=== PATIENT | male | born 1935 | race Caucasian/White ===

== ENCOUNTER 2017-02-11 15:52 | Inpatient (IN) | payer MEDICARE, OTHER ==
[2017-02-11] MEDS ORDERED: methylPREDNISolone Sodium Succinate 125 MG/2 ML SDV IVPUSH ONE (17:02)
[2017-02-11] MEDS ORDERED: Sennosides 8.6 MG Tab PO PRN (17:04)
[2017-02-11] MEDS ORDERED: Calcium Carbonate 750 MG Tab.Chew PO PRN (17:04)
[2017-02-11] MEDS ORDERED: Acetaminophen 325 MG Tab PO PRN (17:04)
[2017-02-11] MEDS ORDERED: Ondansetron 4 MG Tab.DIS PO PRN (17:04)
[2017-02-11] MEDS ORDERED: Magnesium Hydroxide 400 MG/5 ML Susp 30 ML Cup PO PRN ×2 (17:04→19:47)
--- NOTE | 2017-02-11 17:12 | PCM.HP ---
H&P History of Present Illness - General Date of Service: 02/11/17 Admit Problem/Dx: Fever chills respiratory distress. Had been seen on clinic [address] Metzger after he had returned from an [facility] cruise. Started feeling ill on the last day of the cruise which I believe was the and presented to the clinic on the for evaluation after returning home. who accompanied him on the entire trip has not been ill. They were together the entire time traveling as well as eating in the same locations. No noted breaks have been Noseworthy of any noral virus or acquired pneumonia Was prescribed azithromycin Z-Varun which he is taking the starter dose 500 mg and 3 days of the 250 mg in conjunction with his other medications. Source of Information: Patient, Family History Limitations: Reports: No Limitations - History of Present Illness Onset of Symptoms: Reports: Today, Sudden (Had been doing well since the until noon or shortly after today with sudden demise in chills.) Duration of Symptoms: Reports: Hour(s): Location: Reports: Chest (Denies chest pain but has had productive sputum yellowish-green in color.) Quality: Reports: Burning Improves with: Reports: None Worsens with: Reports: Breathing Associated Symptoms: Reports: Cough, cough w sputum, Fever/Chills - Related Data Allergies/Adverse Reactions: Allergies Allergy/AdvReac Type Severity Reaction Status Date / Time No Known Allergies Allergy Verified 12/06/15 14:56 Home Medications: Home Meds Aspirin [Brad Chewable Aspirin] 81 mg PO Q48H 11/27/13 [History] Omeprazole 20 mg PO DAILY 11/27/13 [History] Simvastatin [Zocor] 40 mg PO BEDTIME 11/27/13 [History] Trandolapril 1 mg PO DAILY 11/27/13 [History] Ursodiol 500 mg PO BID 11/27/13 [History] Vitamin E (dl, acetate) [Vitamin E] 400 unit PO BEDTIME 11/27/13 [History] Albuterol [Proventil Neb Soln] 2.5 mg NEB Q6HRRT 11/26/15 [History] Albuterol/Ipratropium [DuoNeb 3.0-0.5 MG/3 ML] 3 ml NEB Q6HRRT 11/26/15 [History ] Atenolol 12.5 mg PO QPM 11/26/15 [History] Folic Acid 1 mg PO BEDTIME 11/26/15 [History] Magnesium Hydroxide [Milk of Magnesia] 30 ml PO DAILY PRN 11/26/15 [History] Methotrexate 20 mg PO FR@0800 11/26/15 [History] Past Medical History HEENT History: Reports: Sinusitis Cardiovascular History: Reports: Bypass, CAD, High Cholesterol, Hypertension, PTCA Other Cardiovascular History: 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 Respiratory History: Reports: Intubation, Previous, Pneumonia, Recurrent, Pulmonary Fibrosis Gastrointestinal History: Reports: GERD Genitourinary History: Reports: BPH Musculoskeletal History: Reports: None, Osteoarthritis Neurological History: Reports: None Psychiatric History: Reports: None Endocrine/Metabolic History: Reports: None Hematologic History: Reports: Other (See Below) Immunologic History: Reports: None Oncologic (Cancer) History: Reports: Basal Cell Carcinoma Dermatologic History: Reports: None - Infectious Disease History Infectious Disease History: Reports: None - Past Surgical History Cardiovascular Surgical History: Reports: Coronary Artery Bypass Male Surgical History: Reports: TURP-Transurethral Resection of Prostate - Past Imaging History Past Imaging History: Reports: Angiography, Ultrasound, Xray Social & Family History - Family History Family Medical History: Noncontributory - Tobacco Use Smoking Status *Q: Former Smoker Years of Tobacco use: 15 Used Tobacco, but Quit: Yes Month Tobacco Last Used: July Hand Smoke Exposure: No - Alcohol Use Days Per Week of Alcohol Use: 0 - Recreational Drug Use Recreational Drug Use: No Drug Use in Last 12 Months: No Recreational Drug Last Use: 6 cups of coffee per day, Mountain Dew 3-4 times per week - Living Situation & Occupation Living situation: Reports: , with Family Occupation: Retired H&P Review of Systems - Review of Systems: Review Of Systems: See Below General: Reports: Fever, Chills, Malaise, Weakness HEENT: Reports: No Symptoms Pulmonary: Reports: Shortness of Breath, Cough, Sputum Cardiovascular: Reports: No Symptoms Gastrointestinal: Reports: Nausea Genitourinary: Reports: No Symptoms Musculoskeletal: Reports: Other (Generalized body aches) Skin: Reports: No Symptoms Psychiatric: Reports: No Symptoms Neurological: Reports: No Symptoms Hematologic/Lymphatic: Reports: No Symptoms Immunologic: Reports: No Symptoms Exam - Exam Exam: See Below - Vital Signs Weight: 83.007 kg - Exam General: Alert, Oriented HEENT: Conjunctiva Clear, EOMI, Nares Patent, Normal Nasal Septum, Posterior Pharynx Clear, Pupils Equal, Pupils Reactive Neck: Supple, Trachea Midline Lungs: Decreased Breath Sounds (Basilar), Rhonchi (Mild right side) Cardiovascular: Regular Rate, Regular Rhythm GI/Abdominal Exam: Normal Bowel Sounds, Soft (Male) Exam: Deferred Extremities: Normal Inspection, Pedal Edema (Trace nonpitting) Skin: Warm, Dry, Intact Neurological: Cranial Nerves Intact Neuro Extensive - Mental Status: Alert, Oriented x3, Normal Mood/Affect Psychiatric: Alert, Normal Affect, Normal Mood *Q Meaningful Use (ADM) - VTE *Q VTE Criteria *Q: - Stroke *Q Stroke Criteria *Q: - AMI *Q AMI Criteria *Q: - Problem List (1) Pneumonia SNOMED Code(s): 872705231 ICD Code: J18.9 - PNEUMONIA, UNSPECIFIED ORGANISM Status: Acute Priority : High Current Visit: Yes Qualifiers: Laterality: right Lung location: middle lobe of lung (2) Nausea SNOMED Code(s): 654233371 ICD Code: R11.0 - NAUSEA Status: Acute Priority: High Current Visit: Yes (3) Chills SNOMED Code(s): 69660793 ICD Code: R68.83 - CHILLS (WITHOUT FEVER) Status: Acute Priority: High Current Visit: Yes (4) Arthritis SNOMED Code(s): 6797167, 851402466 ICD Code: M19.90 - UNSPECIFIED OSTEOARTHRITIS, UNSPECIFIED SITE Status: Acute Priority: High Current Visit: Yes Problem List Initiated/Reviewed/Updated: Yes Orders Last 24hrs: Active Orders 24 hr Category Date Time Status Chest 2V [CR] Routine Exams 02/11/17 16:30 Taken CBC WITH AUTO DIFF [HEME] Routine Lab 02/11/17 16:22 Received Assessment/Plan Comment:: Contact Dr. Wells for admission. Cultures and laboratory work pending at this time secondary of computer downtime in clinic no clinic note is available. Initiation of antibiotic regimen with ceftriaxone in conjunction with azithromycin to conclude full treatment. Respiratory therapy treatments per nebulizer in conjunction with single dose steroid at this time. Cultures will be reviewed
[2017-02-11 17:19] LABS: CHLORIDE,CL 99 mmol/L (98-107); SODIUM,NA 136 mmol/L (136-145)
[2017-02-11] MEDS: cefTRIAXone 2 GM in Sodium Chloride 0.9% 100 ML IV SCH (17:58)
[2017-02-11] MEDS: Sodium Chloride 0.9% 10 ML Syringe FLUSH PRN (18:57)
[2017-02-11] MEDS: Azithromycin 500 MG in Sodium Chloride 0.9% 250 ML IV SCH (18:57)
[2017-02-11] MEDS ORDERED: Albuterol 0.083% 2.5 MG/3 ML Neb Soln NEB PRN (19:47)
[2017-02-11] MEDS: Simvastatin 20 MG Tab PO SCH (20:15)
[2017-02-11] MEDS: Vitamin E (dl-alpha-tocopherol acetate) 400 Unit Cap PO SCH (20:15)
[2017-02-11] MEDS: Aspirin 81 MG Tab.Chew PO SCH (20:16)
[2017-02-11] MEDS: Albuterol/Ipratropium 3.0-0.5 MG/3 ML Neb Soln NEB SCH (20:16)
[2017-02-11] MEDS: Folic Acid 1 MG Tab PO SCH (20:16)
[2017-02-12] MEDS: Albuterol/Ipratropium 3.0-0.5 MG/3 ML Neb Soln NEB SCH ×4 (04:06→19:34)
[2017-02-12] MEDS ORDERED: TRANDOLAPRIL 2 MG PO SCH (08:00)
[2017-02-12] MEDS: Omeprazole 20 MG Cap.CR PO SCH (08:23)
--- NOTE | 2017-02-12 12:52 | PCM.PN ---
- General Info Date of Service: 02/12/17 Admission Dx/Problem (Free Text): Fever chills respiratory distress. Had been seen on clinic [address] Metzger after he had returned from an [facility] cruise. Started feeling ill on the last day of the cruise which I believe was the and presented to the clinic on the for evaluation after returning home. who accompanied him on the entire trip has not been ill. They were together the entire time traveling as well as eating in the same locations. No noted breaks have been Noseworthy of any noral virus or acquired pneumonia Was prescribed azithromycin Z-Varun which he is taking the starter dose 500 mg and 3 days of the 250 mg in conjunction with his other medications. Functional Status: Reports: Pain Controlled, Tolerating Diet, Ambulating. Denies: New Symptoms - Review of Systems General: Reports: No Symptoms. Denies: Fever, Chills HEENT: Reports: No Symptoms Pulmonary: Reports: Shortness of Breath (mild, with activity), Cough, Sputum. Denies: Pleuritic Chest Pain, Hemoptysis, Wheezing Cardiovascular: Reports: No Symptoms. Denies: Chest Pain Gastrointestinal: Reports: No Symptoms Musculoskeletal: Reports: No Symptoms Skin: Reports: No Symptoms Neurological: Reports: No Symptoms Psychiatric: Reports: No Symptoms - Patient Data Vitals - Most Recent: Last Vital Signs Temp 36.7 C 02/12/17 08:00 Pulse 71 02/12/17 09:15 Resp 17 02/12/17 08:00 BP 113/45 L 02/12/17 09:15 Pulse Ox 97 02/12/17 08:00 Weight - Most Recent: 78.744 kg I&O - Last 24 Hours: Intake & Output 02/11/17 02/12/17 02/12/17 22:59 06:59 14:59 Intake Total 400 540 Balance 400 540 Lab Results Last 24 Hours: Laboratory Results - last 24 hr 02/11/17 02/11/17 Range/Units 16:22 16:22 WBC 8.6 (4.0-10.2) K/uL RBC 4.37 (4.33-5.41) M/uL Hgb 13.9 (13.1-16.8) g/dL Hct 40.4 (39.0-49.0) % MCV 92.4 (84.0-98.0) fL MCH 31.8 (28.2-33.3) pg MCHC 34.4 (31.7-36.0) g/dL RDW 12.4 (11.2-14.1) % Plt Count 170 (150-350) K/uL Neut % (Auto) 85.3 H (45.0-80.0) % Lymph % (Auto) 9.5 L (10.0-50.0) % Robeson % (Auto) 4.9 (2.0-14.0) % Eos % (Auto) 0.2 (0.0-5.0) % Baso % (Auto) 0.1 (0.0-2.0) % Neut # (Auto) 7.36 H (1.40-7.00) K/uL Lymph # (Auto) 0.82 (0.50-3.50) K/uL [place] # (Auto) 0.42 (0.00-1.00) K/uL Eos # (Auto) 0.02 (0.00-0.50) K/uL Baso # (Auto) 0.01 (0.00-0.20) K/uL Sodium 136 (136-145) mmol/L Potassium 3.9 (3.5-5.1) mmol/L Chloride 99 (98-107) mmol/L Carbon Dioxide 29.1 (21.0-32.0) mmol/L BUN 14 (7-18) mg/dL Creatinine 0.93 (0.51-1.17) mg/dL Est Cr Clr Drug Dosing TNP Estimated GFR (MDRD) > 60 mL/min Glucose 176 H (74-106) mg/dL Calcium 8.3 L (8.5-10.1) mg/dL Total Bilirubin 0.4 (0.2-1.0) mg/dL AST 23 (15-37) U/L ALT 20 (12-78) U/L Alkaline Phosphatase 70 (46-116) IU/L Total Protein 7.0 (6.4-8.2) g/dL Albumin 3.5 (3.4-5.0) g/dL Med Orders - Current: Current Medications Acetaminophen (Tylenol) 650 mg PO Q6H PRN PRN Reason: Pain/Fever Albuterol (Proventil Neb Soln) 2.5 mg NEB Q6HRRT PRN PRN Reason: Shortness of Breath Albuterol/Ipratropium (Duoneb 3.0-0.5 Mg/3 Ml) 3 ml NEB Q6HRRT [facility] Last Admin: 02/12/17 08:23 Dose: 3 ml Aspirin (Aspirin) 81 mg PO Q48H [facility] Last Admin: 02/11/17 20:16 Dose: 81 mg Atenolol (Tenormin) 12.5 mg PO QPM [facility] Calcium Carbonate/Glycine (Tums Extra Strength) 750 mg PO Q2H PRN PRN Reason: Dyspepsia Folic Acid (Folic Acid) 1 mg PO BEDTIME [facility] Last Admin: 02/11/17 20:16 Dose: 1 mg Ceftriaxone Sodium 2 gm/ (Sodium Chloride) 100 mls @ 200 mls/hr IV Q24H [facility] Last Admin: 02/11/17 17:58 Dose: 200 mls/hr Azithromycin 500 mg/ Sodium (Chloride) 250 mls @ 250 mls/hr IV Q24H [facility] Stop: 02/13/17 17:01 Last Admin: 02/11/17 18:57 Dose: 250 mls/hr Magnesium Hydroxide (Milk Of Magnesia) 30 ml PO DAILY PRN PRN Reason: Abdominal Pain Methotrexate (Methotrexate) 20 mg PO FR@0800 [facility] Omeprazole (Omeprazole) 20 mg PO ACBREAKFAST [facility] Last Admin: 02/12/17 08:23 Dose: 20 mg Ondansetron HCl (Zofran Odt) 4 mg PO Q6H PRN PRN Reason: Nausea/Vomiting Last Admin: 02/11/17 19:34 Dose: 4 mg Ursodiol 500 Mg Tab* (Pt Own Med*) 1 each PO TID [facility] Senna (Senna) 8.6 mg PO DAILY PRN PRN Reason: Constipation Simvastatin (Zocor) 40 mg PO BEDTIME [facility] Last Admin: 02/11/17 20:15 Dose: 40 mg Sodium Chloride (Saline Flush) 10 ml FLUSH ASDIRECTED PRN PRN Reason: Keep Vein Open Last Admin: 02/11/17 18:57 Dose: 10 ml Trandolapril (Trandolapril) 1 mg PO DAILY [facility] Last Admin: 02/12/17 12:41 Dose: Not Given Vitamin E (Vitamin E) 400 units PO BEDTIME [facility] Last Admin: 02/11/17 20:15 Dose: 400 units Discontinued Medications Magnesium Hydroxide (Milk Of Magnesia) 30 ml PO DAILY PRN PRN Reason: Constipation Methylprednisolone Sodium Succinate (Solu-Medrol) 125 mg IVPUSH ONETIME ONE Stop: 02/11/17 17:03 Last Admin: 02/11/17 17:56 Dose: 125 mg (Ursodiol [Ursodiol] (500 Mg)*Pt Own Med*) 500 each PO BID [facility] - Exam General: Alert, Oriented, Cooperative, No Acute Distress HEENT: Pupils Equal, Pupils Reactive, EOMI, Mucous Membr. Moist/[place] Neck: Supple Lungs: Normal Respiratory Effort, Rhonchi (bilaterally, mild), Wheezing ( scattered, mild). No: Decreased Breath Sounds, Crackles, Rales, Rub, Stridor GI/Abdominal Exam: Normal Bowel Sounds, Soft, Non-Tender (Male) Exam: Deferred Back Exam: Normal Inspection Extremities: Normal Inspection, Non-Tender Peripheral Pulses: 2+: Radial (L), Radial (R) Skin: Warm, Dry Neurological: No New Focal Deficit Psy/Mental Status: Alert, Normal Affect, Normal Mood - Problem List & Annotations (1) Arthritis SNOMED Code(s): 3888828, 880210587 Code(s): M19.90 - UNSPECIFIED OSTEOARTHRITIS, UNSPECIFIED SITE Status: Acute Priority: Medium Current Visit: Yes (2) Chills SNOMED Code(s): 25009370 Code(s): R68.83 - CHILLS (WITHOUT FEVER) Status: Acute Priority: Low Current Visit: Yes Annotation/Comment:: No chills noted today per patient (3) Nausea SNOMED Code(s): 650816910 Code(s): R11.0 - NAUSEA Status: Acute Priority: Low Current Visit: Yes (4) Pneumonia SNOMED Code(s): 949603101 Code(s): J18.9 - PNEUMONIA, UNSPECIFIED ORGANISM Status: Acute Priority: High Current Visit: Yes Qualifiers: Pneumonia type: due to unspecified organism Laterality: right Lung location: middle lobe of lung Qualified Code(s): J18.1 - Lobar pneumonia, unspecified organism (5) HTN, Benign hypertension SNOMED Code(s): 62729284 Code(s): I10 - ESSENTIAL (PRIMARY) HYPERTENSION Status: Chronic Priority : Low Current Visit: No (6) COPD, Mild chronic obstructive pulmonary disease SNOMED Code(s): 137655561 Code(s): J44.9 - CHRONIC OBSTRUCTIVE PULMONARY DISEASE, UNSPECIFIED Status : Chronic Priority: Medium Current Visit: No - Problem List Review Problem List Initiated/Reviewed/Updated: Yes - My Orders Last 24 Hours: My Active Orders 02/11/17 17:57 Sodium Chloride 0.9% [Saline Flush] 10 ml FLUSH ASDIRECTED PRN Saline Lock Insert [OM.PC] Routine 02/11/17 19:47 Albuterol [Proventil Neb Soln] 2.5 mg NEB Q6HRRT PRN 02/11/17 20:00 Aspirin 81 mg PO Q48H Folic Acid 1 mg PO BEDTIME Simvastatin [Zocor] 40 mg PO BEDTIME Vitamin E (dl, acetate) [Vitamin E] 400 units PO BEDTIME 02/11/17 20:51 Antiembolic Devices [RC] 08,20 Antiembolic Hose [OM.PC] Routine 02/12/17 07:30 Omeprazole 20 mg PO ACBREAKFAST 02/12/17 08:00 Trandolapril 1 mg PO DAILY 02/12/17 12:38 Incentive Spirometry [RT Incentive Spirometry] [RC] ASDIRECTED 02/12/17 18:00 Atenolol [Tenormin] 12.5 mg PO QPM Patient's Own Medication [Ptom] 500 each PO TID 02/18/17 08:00 Methotrexate 20 mg PO FR@0800 - Assessment Assessment:: Pneumonia. Improved overall since yesterday. - Plan Plan:: As above. Sputum culture pending. Continue antibiotics, incentive spirometry, nebs. Patient to ambulate. Refused Lovenox when discussing DVT risks. Has been walking frequently around his room. Extensive precautions reviewed. Anticipate 2-3 days additional inpatient treatment with subsequent D/C home on oral antibiotics.
[2017-02-12] MEDS: Azithromycin 500 MG in Sodium Chloride 0.9% 250 ML IV SCH (16:50)
[2017-02-12] MEDS: cefTRIAXone 2 GM in Sodium Chloride 0.9% 100 ML IV SCH (17:58)
[2017-02-12] MEDS: Atenolol 25 MG Tab PO SCH (18:15)
[2017-02-12] MEDS: URSODIOL 500 MG PO SCH (18:15)
[2017-02-12] MEDS: Tamsulosin 0.4 MG Cap.ER PO SCH (19:34)
[2017-02-12] MEDS: Folic Acid 1 MG Tab PO SCH (19:34)
[2017-02-12] MEDS: Finasteride 5 MG Tab PO SCH (19:34)
[2017-02-12] MEDS: Simvastatin 20 MG Tab PO SCH (19:34)
[2017-02-12] MEDS: Vitamin E (dl-alpha-tocopherol acetate) 400 Unit Cap PO SCH (19:34)
[2017-02-13] MEDS: Albuterol/Ipratropium 3.0-0.5 MG/3 ML Neb Soln NEB SCH ×4 (04:23→19:16)
[2017-02-13] MEDS ORDERED: TRANDOLAPRIL 2 MG PO SCH ×3 (08:00→08:45)
[2017-02-13] MEDS ORDERED: TRANDOLAPRIL PO SCH (08:00)
[2017-02-13] MEDS: Omeprazole 20 MG Cap.CR PO SCH (08:14)
[2017-02-13] MEDS: sulfaSALAzine 500 MG Tab PO SCH ×2 (08:15→16:46)
[2017-02-13] MEDS: Levothyroxine 50 MCG Tab PO SCH (08:15)
[2017-02-13] MEDS: URSODIOL 500 MG PO SCH ×3 (08:16→17:57)
[2017-02-13] MEDS: TRANDOLAPRIL 2 MG PO SCH (08:41)
[2017-02-13] MEDS: predniSONE 5 MG Tab PO SCH (10:00)
--- NOTE | 2017-02-13 10:52 | PCM.PN ---
- General Info Date of Service: 02/13/17 Admission Dx/Problem (Free Text): Fever chills respiratory distress. Had been seen on clinic 07 [address] Metzger after he had returned from an [facility] cruise. Started feeling ill on the last day of the cruise which I believe was the and presented to the clinic on the for evaluation after returning home. who accompanied him on the entire trip has not been ill. They were together the entire time traveling as well as eating in the same locations. No noted breaks have been Noseworthy of any noral virus or acquired pneumonia Was prescribed azithromycin Z-Varun which he is taking the starter dose 500 mg and 3 days of the 250 mg in conjunction with his other medications. Subjective Update: Patient feels improved overall. Cough as well as sputum production are improved. No new complaints. Has been ambulating often. Functional Status: Reports: Pain Controlled, Tolerating Diet, Ambulating, Urinating - Review of Systems General: Reports: No Symptoms HEENT: Reports: No Symptoms Pulmonary: Reports: Shortness of Breath (improving), Cough, Sputum. Denies: Pleuritic Chest Pain, Hemoptysis, Wheezing Cardiovascular: Reports: No Symptoms Gastrointestinal: Reports: No Symptoms Genitourinary: Reports: No Symptoms Musculoskeletal: Reports: No Symptoms Skin: Reports: No Symptoms Neurological: Reports: No Symptoms Psychiatric: Reports: No Symptoms - Patient Data Vitals - Most Recent: Last Vital Signs Temp 36.6 C 02/13/17 08:00 Pulse 65 02/13/17 08:00 Resp 15 02/13/17 08:00 BP 133/72 02/13/17 08:41 Pulse Ox 95 02/13/17 08:00 Weight - Most Recent: 79.968 kg I&O - Last 24 Hours: Intake & Output 02/12/17 02/13/17 02/13/17 22:59 06:59 14:59 Intake Total 1090 360 Output Total 650 Balance 1090 -290 Alexis Results Last 24 Hours: Microbiology 02/11/17 17:36 Aerobic Blood Culture - Preliminary Blood NO GROWTH AFTER 1 DAY Anaerobic Blood Culture - Preliminary NO GROWTH AFTER 1 DAY 02/11/17 17:23 Aerobic Blood Culture - Preliminary Blood NO GROWTH AFTER 1 DAY Anaerobic Blood Culture - Preliminary NO GROWTH AFTER 1 DAY Med Orders - Current: Current Medications Acetaminophen (Tylenol) 650 mg PO Q6H PRN PRN Reason: Pain/Fever Albuterol (Proventil Neb Soln) 2.5 mg NEB Q6HRRT PRN PRN Reason: Shortness of Breath Albuterol/Ipratropium (Duoneb 3.0-0.5 Mg/3 Ml) 3 ml NEB Q6HRRT [facility] Last Admin: 02/13/17 08:16 Dose: 3 ml Aspirin (Aspirin) 81 mg PO Q48H [facility] Last Admin: 02/11/17 20:16 Dose: 81 mg Atenolol (Tenormin) 12.5 mg PO QPM [facility] Last Admin: 02/12/17 18:15 Dose: 12.5 mg Calcium Carbonate/Glycine (Tums Extra Strength) 750 mg PO Q2H PRN PRN Reason: Dyspepsia Finasteride (Proscar) 5 mg PO BEDTIME [facility] Last Admin: 02/12/17 19:34 Dose: 5 mg Folic Acid (Folic Acid) 1 mg PO BEDTIME [facility] Last Admin: 02/12/17 19:34 Dose: 1 mg Ceftriaxone Sodium 2 gm/ (Sodium Chloride) 100 mls @ 200 mls/hr IV Q24H [facility] Last Admin: 02/12/17 17:58 Dose: 200 mls/hr Azithromycin 500 mg/ Sodium (Chloride) 250 mls @ 250 mls/hr IV Q24H [facility] Stop: 02/13/17 17:01 Last Admin: 02/12/17 16:50 Dose: 250 mls/hr Levothyroxine Sodium (Synthroid) 50 mcg PO ACBREAKFAST [facility] Last Admin: 02/13/17 08:15 Dose: 50 mcg Magnesium Hydroxide (Milk Of Magnesia) 30 ml PO DAILY PRN PRN Reason: Abdominal Pain Omeprazole (Omeprazole) 20 mg PO ACBREAKFAST [facility] Last Admin: 02/13/17 08:14 Dose: 20 mg Ondansetron HCl (Zofran Odt) 4 mg PO Q6H PRN PRN Reason: Nausea/Vomiting Last Admin: 02/11/17 19:34 Dose: 4 mg Ursodiol 500 Mg Tab* (Pt Own Med*) 1 each PO TID [facility] Last Admin: 02/13/17 08:16 Dose: 1 each Prednisone (Prednisone) 5 mg PO DAILY [facility] Last Admin: 02/13/17 10:00 Dose: 5 mg Senna (Senna) 8.6 mg PO DAILY PRN PRN Reason: Constipation Simvastatin (Zocor) 40 mg PO BEDTIME [facility] Last Admin: 02/12/17 19:34 Dose: 40 mg Sodium Chloride (Saline Flush) 10 ml FLUSH ASDIRECTED PRN PRN Reason: Keep Vein Open Last Admin: 02/11/17 18:57 Dose: 10 ml Sulfasalazine (Sulfasalazine) 1,000 mg PO BIDMEALS [facility] Last Admin: 02/13/17 08:15 Dose: 1,000 mg Tamsulosin HCl (Flomax) 0.4 mg PO BEDTIME [facility] Last Admin: 02/12/17 19:34 Dose: 0.4 mg Trandolapril (Trandolapril) 2 mg PO DAILY [facility] Last Admin: 02/13/17 08:41 Dose: 2 mg Vitamin E (Vitamin E) 400 units PO BEDTIME [facility] Last Admin: 02/12/17 19:34 Dose: 400 units Discontinued Medications Magnesium Hydroxide (Milk Of Magnesia) 30 ml PO DAILY PRN PRN Reason: Constipation Methotrexate (Methotrexate) 20 mg PO FR@0800 [facility] Methylprednisolone Sodium Succinate (Solu-Medrol) 125 mg IVPUSH ONETIME ONE Stop: 02/11/17 17:03 Last Admin: 02/11/17 17:56 Dose: 125 mg Non-Formulary Medication (Trandolapril [Trandolapril]) 5 tab PO DAILY [facility] Trandolapril 2mg Tab (Nonform) 1 tab PO DAILY [facility] Last Admin: 02/13/17 08:39 Dose: Not Given Trandolapril 2mg Tab (Nonform) 1 tab PO DAILY [facility] (Ursodiol [Ursodiol] (500 Mg)*Pt Own Med*) 500 each PO BID [facility] Last Admin: 02/12/17 13:04 Dose: Not Given Trandolapril (Trandolapril) 1 mg PO DAILY [facility] Last Admin: 02/12/17 12:41 Dose: Not Given Trandolapril (Trandolapril) 2 mg PO DAILY [facility] - Exam General: Alert, Oriented, Cooperative, No Acute Distress HEENT: Pupils Equal, Pupils Reactive, EOMI, Mucous Membr. Moist/[place] Neck: Supple Lungs: Normal Respiratory Effort, Rhonchi (faint, scattered, improved from yesterday). No: Rales, Rub, Stridor, Wheezing Cardiovascular: Regular Rate, Regular Rhythm GI/Abdominal Exam: Normal Bowel Sounds, Soft, Non-Tender (Male) Exam: Deferred Back Exam: Normal Inspection Extremities: Normal Inspection, Normal Range of Motion, Non-Tender, Normal Capillary Refill Peripheral Pulses: 2+: Radial (L), Radial (R) Skin: Warm, Dry Neurological: No New Focal Deficit Psy/Mental Status: Alert, Normal Affect, Normal Mood - Problem List & Annotations (1) Arthritis SNOMED Code(s): 0635684, 130949939 Code(s): M19.90 - UNSPECIFIED OSTEOARTHRITIS, UNSPECIFIED SITE Status: Acute Priority: Medium Current Visit: Yes (2) Chills SNOMED Code(s): 97036960 Code(s): R68.83 - CHILLS (WITHOUT FEVER) Status: Acute Priority: Low Current Visit: Yes Annotation/Comment:: No chills noted today per patient (3) Nausea SNOMED Code(s): 088633943 Code(s): R11.0 - NAUSEA Status: Acute Priority: Low Current Visit: Yes Annotation/Comment:: currently resolved (4) Pneumonia SNOMED Code(s): 335132831 Code(s): J18.9 - PNEUMONIA, UNSPECIFIED ORGANISM Status: Acute Priority: High Current Visit: Yes Qualifiers: Pneumonia type: due to unspecified organism Laterality: right Lung location: middle lobe of lung Qualified Code(s): J18.1 - Lobar pneumonia, unspecified organism Annotation/Comment:: Improving overall (5) HTN, Benign hypertension SNOMED Code(s): 67779511 Code(s): I10 - ESSENTIAL (PRIMARY) HYPERTENSION Status: Chronic Priority : Low Current Visit: No (6) COPD, Mild chronic obstructive pulmonary disease SNOMED Code(s): 519269610 Code(s): J44.9 - CHRONIC OBSTRUCTIVE PULMONARY DISEASE, UNSPECIFIED Status : Chronic Priority: Medium Current Visit: No - Problem List Review Problem List Initiated/Reviewed/Updated: Yes - My Orders Last 24 Hours: My Active Orders 02/12/17 12:38 Incentive Spirometry [RT Incentive Spirometry] [RC] ASDIRECTED 02/12/17 18:00 Atenolol [Tenormin] 12.5 mg PO QPM Patient's Own Medication [Ptom] 1 each PO TID 02/12/17 20:00 Finasteride [Proscar] 5 mg PO BEDTIME Tamsulosin [Flomax] 0.4 mg PO BEDTIME 02/13/17 07:30 Levothyroxine [Synthroid] 50 mcg PO ACBREAKFAST sulfaSALAzine 1,000 mg PO BIDMEALS 02/13/17 08:00 predniSONE 5 mg PO DAILY 02/13/17 08:45 Trandolapril 2 mg PO DAILY 02/14/17 05:11 COMPREHENSIVE METABOLIC PN,CMP [CHEM] AM 02/14/17 05:15 CBC WITH AUTO DIFF [HEME] AM - Assessment Assessment:: Pneumonia. Improved overall since yesterday. - Plan Plan:: As above. Sputum culture pending via clinic. Continue antibiotics, incentive spirometry, nebs. Patient to ambulate. Refused Lovenox when discussing DVT risks. Has been walking frequently around his room. Extensive precautions reviewed. Anticipate likely discharge home tomorrow on oral antibiotics if he continues to do well.
[2017-02-13] MEDS: Azithromycin 500 MG in Sodium Chloride 0.9% 250 ML IV SCH (16:43)
[2017-02-13] MEDS: Sodium Chloride 0.9% 10 ML Syringe FLUSH PRN (16:43)
[2017-02-13] MEDS: cefTRIAXone 2 GM in Sodium Chloride 0.9% 100 ML IV SCH (17:58)
[2017-02-13] MEDS: Atenolol 25 MG Tab PO SCH (17:58)
[2017-02-13] MEDS: Folic Acid 1 MG Tab PO SCH (19:16)
[2017-02-13] MEDS: Aspirin 81 MG Tab.Chew PO SCH (19:16)
[2017-02-13] MEDS: Simvastatin 20 MG Tab PO SCH (19:17)
[2017-02-13] MEDS: Vitamin E (dl-alpha-tocopherol acetate) 400 Unit Cap PO SCH (19:17)
[2017-02-13] MEDS: Finasteride 5 MG Tab PO SCH (19:17)
[2017-02-13] MEDS: Tamsulosin 0.4 MG Cap.ER PO SCH (19:17)
[2017-02-14] MEDS: Albuterol/Ipratropium 3.0-0.5 MG/3 ML Neb Soln NEB SCH ×2 (03:11→08:03)
[2017-02-14 07:27] LABS: CHLORIDE,CL 104 mmol/L (98-107); SODIUM,NA 140 mmol/L (136-145)
[2017-02-14] MEDS: Omeprazole 20 MG Cap.CR PO SCH (08:01)
[2017-02-14] MEDS: predniSONE 5 MG Tab PO SCH (08:02)
[2017-02-14] MEDS: Levothyroxine 50 MCG Tab PO SCH (08:02)
[2017-02-14] MEDS: sulfaSALAzine 500 MG Tab PO SCH (08:02)
[2017-02-14] MEDS: TRANDOLAPRIL 2 MG PO SCH (08:03)
[2017-02-14] MEDS: URSODIOL 500 MG PO SCH ×2 (08:03→11:40)
[2017-02-14 08:04] VITALS: BP 122/54
[2017-02-14] MEDS: Sodium Chloride 0.9% 10 ML Syringe FLUSH PRN (08:06)
--- NOTE | 2017-02-14 10:19 | PCM.PN ---
- General Info Date of Service: 02/14/17 Functional Status: Reports: Pain Controlled - Review of Systems General: Reports: No Symptoms HEENT: Reports: No Symptoms Pulmonary: Reports: Cough (Occasional minimal production) Cardiovascular: Reports: No Symptoms Gastrointestinal: Reports: No Symptoms Genitourinary: Reports: No Symptoms Musculoskeletal: Reports: No Symptoms Skin: Reports: No Symptoms (Typical arthritic component no exacerbation) Neurological: Reports: No Symptoms Psychiatric: Reports: No Symptoms - Patient Data Vitals - Most Recent: Last Vital Signs Temp 36.7 C 02/13/17 19:39 Pulse 70 02/13/17 19:39 Resp 18 02/13/17 19:39 BP 122/54 L 02/14/17 08:03 Pulse Ox 98 02/13/17 19:39 Weight - Most Recent: 79.968 kg I&O - Last 24 Hours: Intake & Output 02/13/17 02/14/17 02/14/17 22:59 06:59 14:59 Intake Total 920 100 Output Total 900 Balance 20 100 Lab Results Last 24 Hours: Laboratory Results - last 24 hr 02/14/17 02/14/17 Range/Units 06:45 06:45 WBC 4.9 (4.0-10.2) K/uL RBC 3.75 L (4.33-5.41) M/uL Hgb 12.0 L D (13.1-16.8) g/dL Hct 35.1 L (39.0-49.0) % MCV 93.6 (84.0-98.0) fL MCH 32.0 (28.2-33.3) pg MCHC 34.2 (31.7-36.0) g/dL RDW 12.7 (11.2-14.1) % Plt Count 179 (150-350) K/uL Neut % (Auto) 55.6 (45.0-80.0) % Lymph % (Auto) 29.6 (10.0-50.0) % [place] % (Auto) 12.4 (2.0-14.0) % Eos % (Auto) 2.2 (0.0-5.0) % Baso % (Auto) 0.2 (0.0-2.0) % Neut # (Auto) 2.74 (1.40-7.00) K/uL Lymph # (Auto) 1.46 (0.50-3.50) K/uL [place] # (Auto) 0.61 (0.00-1.00) K/uL Eos # (Auto) 0.11 (0.00-0.50) K/uL Baso # (Auto) 0.01 (0.00-0.20) K/uL Sodium 140 (136-145) mmol/L Potassium 4.1 (3.5-5.1) mmol/L Chloride 104 (98-107) mmol/L Carbon Dioxide 31.8 (21.0-32.0) mmol/L BUN 18 (7-18) mg/dL Creatinine 1.03 (0.51-1.17) mg/dL Est Cr Clr Drug Dosing 60.05 mL/min Estimated GFR (MDRD) > 60 mL/min Glucose 95 (74-106) mg/dL Calcium 8.2 L (8.5-10.1) mg/dL Total Bilirubin 0.2 (0.2-1.0) mg/dL AST 15 (15-37) U/L ALT 15 (12-78) U/L Alkaline Phosphatase 52 (46-116) IU/L Total Protein 5.8 L (6.4-8.2) g/dL Albumin 2.8 L (3.4-5.0) g/dL Alexis Results Last 24 Hours: Microbiology 02/11/17 17:36 Aerobic Blood Culture - Preliminary Blood NO GROWTH AFTER 2 DAYS Anaerobic Blood Culture - Preliminary NO GROWTH AFTER 2 DAYS 02/11/17 17:23 Aerobic Blood Culture - Preliminary Blood NO GROWTH AFTER 2 DAYS Anaerobic Blood Culture - Preliminary NO GROWTH AFTER 2 DAYS Med Orders - Current: Current Medications Acetaminophen (Tylenol) 650 mg PO Q6H PRN PRN Reason: Pain/Fever Albuterol (Proventil Neb Soln) 2.5 mg NEB Q6HRRT PRN PRN Reason: Shortness of Breath Albuterol/Ipratropium (Duoneb 3.0-0.5 Mg/3 Ml) 3 ml NEB Q6HRRT [facility] Last Admin: 02/14/17 08:03 Dose: 3 ml Aspirin (Aspirin) 81 mg PO Q48H [facility] Last Admin: 02/13/17 19:16 Dose: 81 mg Atenolol (Tenormin) 12.5 mg PO QPM [facility] Last Admin: 02/13/17 17:58 Dose: 12.5 mg Calcium Carbonate/Glycine (Tums Extra Strength) 750 mg PO Q2H PRN PRN Reason: Dyspepsia Finasteride (Proscar) 5 mg PO BEDTIME [facility] Last Admin: 02/13/17 19:17 Dose: 5 mg Folic Acid (Folic Acid) 1 mg PO BEDTIME [facility] Last Admin: 02/13/17 19:16 Dose: 1 mg Ceftriaxone Sodium 2 gm/ (Sodium Chloride) 100 mls @ 200 mls/hr IV Q24H [facility] Last Admin: 02/13/17 17:58 Dose: 100 mls/hr Levothyroxine Sodium (Synthroid) 50 mcg PO ACBREAKFAST [facility] Last Admin: 02/14/17 08:02 Dose: 50 mcg Magnesium Hydroxide (Milk Of Magnesia) 30 ml PO DAILY PRN PRN Reason: Abdominal Pain Omeprazole (Omeprazole) 20 mg PO ACBREAKFAST [facility] Last Admin: 02/14/17 08:01 Dose: 20 mg Ondansetron HCl (Zofran Odt) 4 mg PO Q6H PRN PRN Reason: Nausea/Vomiting Last Admin: 02/11/17 19:34 Dose: 4 mg Ursodiol 500 Mg Tab* (Pt Own Med*) 1 each PO TID [facility] Last Admin: 02/14/17 08:03 Dose: 1 each Prednisone (Prednisone) 5 mg PO DAILY [facility] Last Admin: 02/14/17 08:02 Dose: 5 mg Senna (Senna) 8.6 mg PO DAILY PRN PRN Reason: Constipation Simvastatin (Zocor) 40 mg PO BEDTIME [facility] Last Admin: 02/13/17 19:17 Dose: 40 mg Sodium Chloride (Saline Flush) 10 ml FLUSH ASDIRECTED PRN PRN Reason: Keep Vein Open Last Admin: 02/14/17 08:06 Dose: 10 ml Sulfasalazine (Sulfasalazine) 1,000 mg PO BIDMEALS [facility] Last Admin: 02/14/17 08:02 Dose: 1,000 mg Tamsulosin HCl (Flomax) 0.4 mg PO BEDTIME [facility] Last Admin: 02/13/17 19:17 Dose: 0.4 mg Trandolapril (Trandolapril) 2 mg PO DAILY [facility] Last Admin: 02/14/17 08:03 Dose: 2 mg Vitamin E (Vitamin E) 400 units PO BEDTIME [facility] Last Admin: 02/13/17 19:17 Dose: 400 units Discontinued Medications Azithromycin 500 mg/ Sodium (Chloride) 250 mls @ 250 mls/hr IV Q24H [facility] Stop: 02/13/17 17:01 Last Admin: 02/13/17 16:43 Dose: 250 mls/hr Magnesium Hydroxide (Milk Of Magnesia) 30 ml PO DAILY PRN PRN Reason: Constipation Methotrexate (Methotrexate) 20 mg PO FR@0800 [facility] Methylprednisolone Sodium Succinate (Solu-Medrol) 125 mg IVPUSH ONETIME ONE Stop: 02/11/17 17:03 Last Admin: 02/11/17 17:56 Dose: 125 mg Non-Formulary Medication (Trandolapril [Trandolapril]) 5 tab PO DAILY [facility] Trandolapril 2mg Tab (Nonform) 1 tab PO DAILY [facility] Last Admin: 02/13/17 08:39 Dose: Not Given Trandolapril 2mg Tab (Nonform) 1 tab PO DAILY [facility] (Ursodiol [Ursodiol] (500 Mg)*Pt Own Med*) 500 each PO BID [facility] Last Admin: 02/12/17 13:04 Dose: Not Given Trandolapril (Trandolapril) 1 mg PO DAILY [facility] Last Admin: 02/12/17 12:41 Dose: Not Given Trandolapril (Trandolapril) 2 mg PO DAILY [facility] - Exam General: Alert, Oriented HEENT: Pupils Equal, Pupils Reactive, EOMI, Mucous Membr. Moist/[place]: Supple Lungs: Clear to Auscultation (Slightly decreased mid and lower right side in comparison to left with no wheezes no crackles no rhonchi) Cardiovascular: Regular Rate, Regular Rhythm GI/Abdominal Exam: Normal Bowel Sounds (Male) Exam: Deferred Back Exam: Normal Inspection Extremities: Normal Inspection, No Pedal Edema Skin: Warm, Dry Neurological: No New Focal Deficit Psy/Mental Status: Alert, Normal Affect, Normal Mood - Problem List & Annotations (1) Pneumonia SNOMED Code(s): 576560634 Code(s): J18.9 - PNEUMONIA, UNSPECIFIED ORGANISM Status: Acute Priority: High Current Visit: Yes Qualifiers: Pneumonia type: due to unspecified organism Laterality: right Lung location: middle lobe of lung Qualified Code(s): J18.1 - Lobar pneumonia, unspecified organism Annotation/Comment:: Improving overall (2) Nausea SNOMED Code(s): 493557067 Code(s): R11.0 - NAUSEA Status: Resolved Priority: Low Current Visit: Yes Annotation/Comment:: currently resolved (3) Chills SNOMED Code(s): 21182139 Code(s): R68.83 - CHILLS (WITHOUT FEVER) Status: Resolved Priority: Low Current Visit: Yes Annotation/Comment:: No chills noted today per patient (4) Arthritis SNOMED Code(s): 8517074, 575308994 Code(s): M19.90 - UNSPECIFIED OSTEOARTHRITIS, UNSPECIFIED SITE Status: Chronic Priority: Medium Current Visit: Yes - Problem List Review Problem List Initiated/Reviewed/Updated: Yes - Assessment Assessment:: Pneumonia. Improved overall since yesterday. - Plan Plan:: As above. Sputum culture pending via clinic. Continue antibiotics, incentive spirometry, nebs. Patient to ambulate. Refused Lovenox when discussing DVT risks. Has been walking frequently around his room. Extensive precautions reviewed. Anticipate likely discharge home tomorrow on oral antibiotics if he continues to do well. Will discharge home today. Azithromycin has concluded full dosing and will switch over to oral cefdinir 500 mg twice a day for the next 7 days. Continuing home medications.
--- NOTE | 2017-02-16 16:22 | PCM.DCSUM1 ---
Discharge Summary - Hospital Course Free Text/Narrative:: Hospitalized on 11 February 2017 secondary of fever chills nausea pneumonia shortness of breath cough productive in nature. It returned last week from a [place] cruise accompanied by his which has no symptoms or illness feeling general malaise and onset of symptoms presenting to the clinic on 07 February being seen by Dr. Dsouza at which time he was placed on azithromycin Z-Varun and noticed significant improvement through the . On the evening of the started noticing mild chest congestion with cough and underwent significant demise throughout the course of the night and the early part of the day. Resented to the clinic in the afternoon of the and was admitted to [facility] by myself with report given to Dr. Wells on-call physician for the weekend doing rounds until my return on Tuesday. He is treated with pulmonary toileting respiratory nebulizers is azithromycin 500 mg IV daily 3 doses Rocephin 1 g IV daily for 4 doses being switched over to Ceftin 500 mg twice a day for 7 additional days yielding course of treatment for a complete 10 day coverage. He is feeling well and capable of discharge today with follow-up in the clinic in 7-10 days. - Discharge Data Discharge Date: 02/14/17 Discharge Disposition: Home, Self-Care 01 Condition: Good - Discharge Diagnosis/Problem(s) (1) Pneumonia SNOMED Code(s): 207964167 ICD Code: J18.9 - PNEUMONIA, UNSPECIFIED ORGANISM Status: Acute Priority : High Problem Details: Improving overall Qualifiers: Pneumonia type: due to unspecified organism Laterality: right Lung location: middle lobe of lung Qualified Code(s): J18.1 - Lobar pneumonia, unspecified organism (2) Nausea SNOMED Code(s): 000623984 ICD Code: R11.0 - NAUSEA Status: Resolved Priority: Low Problem Details : currently resolved (3) Chills SNOMED Code(s): 03276006 ICD Code: R68.83 - CHILLS (WITHOUT FEVER) Status: Resolved Priority: Low Problem Details: No chills noted today per patient (4) Arthritis SNOMED Code(s): 7876961, 899830141 ICD Code: M19.90 - UNSPECIFIED OSTEOARTHRITIS, UNSPECIFIED SITE Status: Chronic Priority: Medium - Patient Summary/Data Consults: Consultations 02/11/17 17:04 Consult to Case Management [CONS] Routine Consult to Case Management [CONS] Routine Consult to Case Management [CONS] Routine OT Evaluation and Treatment [CONS] Routine OT Evaluation and Treatment [CONS] Routine - Discharge Plan Prescriptions/Med Rec: Cefuroxime [Ceftin] 500 mg PO BID #14 tablet Home Medications: Home Meds Aspirin [Brad Chewable Aspirin] 81 mg PO Q48H 11/27/13 [History] Omeprazole 20 mg PO DAILY 11/27/13 [History] Simvastatin [Zocor] 40 mg PO BEDTIME 11/27/13 [History] Ursodiol 500 mg PO TID 11/27/13 [History] Atenolol 12.5 mg PO QPM 11/26/15 [History] Folic Acid 1 mg PO BEDTIME 11/26/15 [History] Magnesium Hydroxide [Milk of Magnesia] 30 ml PO DAILY PRN 11/26/15 [History] Finasteride [Proscar] 5 mg PO BEDTIME 02/12/17 [History] Levothyroxine [Synthroid] 50 mcg PO ACBREAKFAST 02/12/17 [History] Tamsulosin [Flomax] 0.4 mg PO BEDTIME 02/12/17 [History] Trandolapril 0.5 tab PO DAILY 02/12/17 [History] Vitamin E Mixed [Vitamin E] 1,000 unit PO DAILY 02/12/17 [History] predniSONE [Prednisone] 5 mg PO DAILY 02/12/17 [History] sulfaSALAzine [Azulfidine] 1,000 mg PO BID 02/12/17 [History] Cefuroxime [Ceftin] 500 mg PO BID #14 tablet 02/14/17 [Rx] - General Info Date of Service: 02/14/17 Functional Status: Reports: Pain Controlled - Review of Systems General: Reports: No Symptoms HEENT: Reports: No Symptoms, Contact Lenses Pulmonary: Reports: Cough (Occasional) Cardiovascular: Reports: No Symptoms Gastrointestinal: Reports: No Symptoms Genitourinary: Reports: No Symptoms Musculoskeletal: Reports: No Symptoms Skin: Reports: No Symptoms Neurological: Reports: No Symptoms Psychiatric: Reports: No Symptoms - Patient Data Vitals - Most Recent: Last Vital Signs Temp 37.1 C 02/14/17 08:00 Pulse 60 02/14/17 08:00 Resp 16 02/14/17 08:00 BP 122/54 L 02/14/17 08:03 Pulse Ox 99 02/14/17 08:00 Weight - Most Recent: 79.968 kg MALLIKA Results - Last 24 hrs: Microbiology 02/11/17 17:36 Aerobic Blood Culture - Preliminary Blood NO GROWTH AFTER 4 DAYS Anaerobic Blood Culture - Preliminary NO GROWTH AFTER 4 DAYS 02/11/17 17:23 Aerobic Blood Culture - Preliminary Blood NO GROWTH AFTER 4 DAYS Anaerobic Blood Culture - Preliminary NO GROWTH AFTER 4 DAYS Med Orders - Current: Current Medications Discontinued Medications Acetaminophen (Tylenol) 650 mg PO Q6H PRN PRN Reason: Pain/Fever Albuterol (Proventil Neb Soln) 2.5 mg NEB Q6HRRT PRN PRN Reason: Shortness of Breath Albuterol/Ipratropium (Duoneb 3.0-0.5 Mg/3 Ml) 3 ml NEB Q6HRRT [facility] Last Admin: 02/14/17 08:03 Dose: 3 ml Aspirin (Aspirin) 81 mg PO Q48H [facility] Last Admin: 02/13/17 19:16 Dose: 81 mg Atenolol (Tenormin) 12.5 mg PO QPM [facility] Last Admin: 02/13/17 17:58 Dose: 12.5 mg Calcium Carbonate/Glycine (Tums Extra Strength) 750 mg PO Q2H PRN PRN Reason: Dyspepsia Finasteride (Proscar) 5 mg PO BEDTIME [facility] Last Admin: 02/13/17 19:17 Dose: 5 mg Folic Acid (Folic Acid) 1 mg PO BEDTIME [facility] Last Admin: 02/13/17 19:16 Dose: 1 mg Ceftriaxone Sodium 2 gm/ (Sodium Chloride) 100 mls @ 200 mls/hr IV Q24H [facility] Last Admin: 02/13/17 17:58 Dose: 100 mls/hr Azithromycin 500 mg/ Sodium (Chloride) 250 mls @ 250 mls/hr IV Q24H [facility] Stop: 02/13/17 17:01 Last Admin: 02/13/17 16:43 Dose: 250 mls/hr Levothyroxine Sodium (Synthroid) 50 mcg PO ACBREAKFAST [facility] Last Admin: 02/14/17 08:02 Dose: 50 mcg Magnesium Hydroxide (Milk Of Magnesia) 30 ml PO DAILY PRN PRN Reason: Abdominal Pain Magnesium Hydroxide (Milk Of Magnesia) 30 ml PO DAILY PRN PRN Reason: Constipation Methotrexate (Methotrexate) 20 mg PO FR@0800 [facility] Methylprednisolone Sodium Succinate (Solu-Medrol) 125 mg IVPUSH ONETIME ONE Stop: 02/11/17 17:03 Last Admin: 02/11/17 17:56 Dose: 125 mg Non-Formulary Medication (Trandolapril [Trandolapril]) 5 tab PO DAILY [facility] Trandolapril 2mg Tab (Nonform) 1 tab PO DAILY [facility] Last Admin: 02/13/17 08:39 Dose: Not Given Trandolapril 2mg Tab (Nonform) 1 tab PO DAILY [facility] Omeprazole (Omeprazole) 20 mg PO ACBREAKFAST [facility] Last Admin: 02/14/17 08:01 Dose: 20 mg Ondansetron HCl (Zofran Odt) 4 mg PO Q6H PRN PRN Reason: Nausea/Vomiting Last Admin: 02/11/17 19:34 Dose: 4 mg (Ursodiol [Ursodiol] (500 Mg)*Pt Own Med*) 500 each PO BID [facility] Last Admin: 02/12/17 13:04 Dose: Not Given Ursodiol 500 Mg Tab* (Pt Own Med*) 1 each PO TID [facility] Last Admin: 02/14/17 11:40 Dose: 1 each Prednisone (Prednisone) 5 mg PO DAILY [facility] Last Admin: 02/14/17 08:02 Dose: 5 mg Senna (Senna) 8.6 mg PO DAILY PRN PRN Reason: Constipation Simvastatin (Zocor) 40 mg PO BEDTIME [facility] Last Admin: 02/13/17 19:17 Dose: 40 mg Sodium Chloride (Saline Flush) 10 ml FLUSH ASDIRECTED PRN PRN Reason: Keep Vein Open Last Admin: 02/14/17 08:06 Dose: 10 ml Sulfasalazine (Sulfasalazine) 1,000 mg PO BIDMEALS [facility] Last Admin: 02/14/17 08:02 Dose: 1,000 mg Tamsulosin HCl (Flomax) 0.4 mg PO BEDTIME [facility] Last Admin: 02/13/17 19:17 Dose: 0.4 mg Trandolapril (Trandolapril) 1 mg PO DAILY [facility] Last Admin: 02/12/17 12:41 Dose: Not Given Trandolapril (Trandolapril) 2 mg PO DAILY [facility] Trandolapril (Trandolapril) 2 mg PO DAILY [facility] Last Admin: 02/14/17 08:03 Dose: 2 mg Vitamin E (Vitamin E) 400 units PO BEDTIME [facility] Last Admin: 02/13/17 19:17 Dose: 400 units - Exam General: Reports: Alert, Oriented HEENT: Reports: Pupils Equal, Pupils Reactive Neck: Reports: Supple Lungs: Reports: Clear to Auscultation, Decreased Breath Sounds (Mildly decreased to the right more so than left) Cardiovascular: Reports: Regular Rate, Regular Rhythm GI/Abdominal Exam: Normal Bowel Sounds, Soft (Male) Exam: Deferred Rectal (Males) Exam: Deferred Back Exam: Reports: Normal Inspection Extremities: Normal Inspection, No Pedal Edema Skin: Reports: Warm, Dry, Intact Neurological: Reports: No New Focal Deficit Psy/Mental Status: Reports: Alert, Normal Affect, Normal Mood *Q Meaningful Use (DIS) - VTE *Q VTE Criteria *Q: - Stroke *Q Stroke Criteria *Q: - AMI *Q AMI Criteria *Q:
[2017-02-18] MEDS ORDERED: Methotrexate 2.5 MG Tab PO SCH (08:00)
== END 2017-02-14 12:55 | disposition home or self-care (01) | DRG 190 ==
LOC: LL.CLIN 15:52 → LL.MS 16:44
PROVIDERS: ADMIT Nurse Practitioner; ATTEND Nurse Practitioner
DX: J44.0 Chronic obstructive pulmonary disease with (acute) lower respiratory infection (principal); J18.1 Lobar pneumonia, unspecified organism; J18.9 Pneumonia, unspecified organism; I25.10 Atherosclerotic heart disease of native coronary artery without angina pectoris; I25.2 Old myocardial infarction; E78.00 Pure hypercholesterolemia, unspecified; K21.9 Gastro-esophageal reflux disease without esophagitis; N40.0 Benign prostatic hyperplasia without lower urinary tract symptoms; Z87.891 Personal history of nicotine dependence; R11.0 Nausea; M19.90 Unspecified osteoarthritis, unspecified site; I10 Essential (primary) hypertension
CPT/HCPCS: 36415; 71020; 80053; 85025; 87040; 87070; 87077; 87106; 87205; 94640; 94664; A9270-GY; J0456; J0696; J2930; J7050

== ENCOUNTER 2017-08-18 11:21 | Day surgery (SDC) | payer MEDICARE, OTHER ==
[~2017-08-18 11:21] MED LIST: Lactated Ringers 1,000 ML IV SCH; Sodium Chloride 0.9% 10 ML Syringe FLUSH PRN
[2017-08-18] MEDS ORDERED: Propofol 200 MG/20 ML SDV ONE ×2 (13:27→13:31)
[2017-08-18] MEDS ORDERED: Midazolam 1 MG/ML 2 ML SDV ONE ×2 (13:27→13:31)
--- NOTE | 2017-08-18 13:34 | PCM.PN ---
- General Info Date of Service: 08/18/17 - Review of Systems Systems Review Comment:: 82-year-old male referred by Jean Carlos Cisneros for colonoscopy. He has a history of rectal bleeding and colitis noted about a month ago. Currently feels well after finishing his antibiotics. He is medically stable to proceed with colonoscopy. I discussed the proposed procedure with him he understands indications and risks and agrees to proceed. No significant recent change to his health status is identified. - Patient Data Vitals - Most Recent: Last Vital Signs Temp 97.9 F 08/18/17 12:39 Pulse 58 L 08/18/17 12:39 Resp 20 08/18/17 12:39 BP 125/81 08/18/17 12:39 Pulse Ox 98 08/18/17 12:39 Weight - Most Recent: 83.915 kg Med Orders - Current: Current Medications Lactated Ringer's (Ringers, Lactated) 1,000 mls @ 125 mls/hr IV ASDIRECTED [facility] Last Admin: 08/18/17 13:01 Dose: 125 mls/hr Sodium Chloride (Saline Flush) 10 ml FLUSH ASDIRECTED PRN PRN Reason: Keep Vein Open Discontinued Medications Midazolam HCl (Versed 1 Mg/Ml) Confirm Administered Dose 2 mg .ROUTE .STK-MED ONE Stop: 08/18/17 13:28 Propofol (Diprivan 20 Ml) Confirm Administered Dose 400 mg .ROUTE .STK-MED ONE Stop: 08/18/17 13:28 - Problem List Review Problem List Initiated/Reviewed/Updated: Yes - Assessment Assessment:: History of colitis with rectal bleeding - Plan Plan:: Colonoscopy
[2017-08-18 16:59] VITALS: BP 138/63
--- NOTE | 2017-08-18 18:25 | PCM.OPNOTE ---
- General Post-Op/Procedure Note Date of Surgery/Procedure: 08/18/17 Operative Procedure(s): Colonoscopy Findings: Colon Polyps including large sessile polyp in the cecum Extensive Sigmoid Diverticulosis Moderate sized internal/external hemorrhoids Pre Op Diagnosis: Rectal Bleeding Post-Op Diagnosis: Colon Polyps. Diverticulosis. Hemorrhoids Anesthesia Technique: MAC Primary Surgeon: Titus Sullivan Pathology: Colon Polyps Output, Urine Amount: 0 EBL in mLs: 2 Complications: None Condition: Good Free Text/Narrative:: Intake & Output 08/18/17 08/18/17 08/18/17 06:59 14:59 22:59 Intake Total 500 740 Balance 500 740
--- NOTE | 2017-08-18 23:28 | OR ---
Date of Procedure: 08/18/2017 PREOPERATIVE DIAGNOSIS: History of rectal bleeding. POSTOPERATIVE DIAGNOSES: 1. Colon polyps. 2. Diverticulosis. 3. Hemorrhoids. OPERATION PERFORMED: Colonoscopy with polypectomy and biopsy. INDICATIONS FOR SURGERY: This is an 82-year-old male, had an episode of colitis with rectal bleeding about a month ago. He underwent treatment for this and is seen today for followup colonoscopy of this event. FINDINGS: The patient has extensive sigmoid diverticulosis. No active bleeding or acute inflammation is seen in this area at this time. Multiple polyps were also noted. The largest polyp is an approximately 2 cm sessile polyp in the cecum. This was smooth and grossly benign, but felt to be too large to safely remove with a routine cautery snare. The patient also had a 6 mm polyp noted in the mid transverse colon, and a 7 mm pedunculated inflammatory-appearing polyp in the rectum. The patient also had moderate-sized internal and external hemorrhoids. DESCRIPTION OF PROCEDURE: The patient was taken to the operating room. He was given intravenous sedation, and with him in the left lateral decubitus position, digital rectal exam was performed showing no rectal masses. The Olympus colonoscope was inserted into the rectum. Retroflexed examination of the rectal canal is performed. In the rectum, the above-described rectal polyp was identified. This was removed with a cautery snare and retrieved. The scope was then carefully advanced under direct visualization through the entire length of the colon until the cecum was reached. Reaching the cecum was somewhat difficult because of tortuosity of the colon and extensive sigmoid diverticulosis, but eventually with the assistance of hand pressure and changes in patient position, the cecum was able to be reached, and upon examining the cecum, the above-described large sessile polyp is noted on a cecal fold. Examination of the polyp indicated that there would risk of perforation attempting to remove this polyp in its entirety with a standard hot snare technique so only cold biopsies without cautery were taken of this polyp. The scope was then slowly withdrawn sequentially re-examining the colonic segments. In the mid transverse colon, another sessile polyp is identified and removed and also retrieved. After the colon and rectum had been fully examined, the scope was removed and the patient was taken from the operating room in satisfactory condition. ESTIMATED BLOOD LOSS: 2 mL. COMPLICATIONS: None. PROGNOSIS: Good. COMMENT: If the pathology report from the cecal polyp is benign then we will plan referral to Gastroenterology in [place] for removal of the cecal polyp possibly with the assistance of advanced techniques. RUSSELL Sullivan MD /[id number]
== END 2017-08-18 16:16 | disposition home or self-care (01) ==
LOC: LL.SDS 11:21
PROVIDERS: ATTEND Surgery
DX: D12.0 Benign neoplasm of cecum (principal); D12.3 Benign neoplasm of transverse colon; D12.8 Benign neoplasm of rectum; K64.8 Other hemorrhoids; K64.4 Residual hemorrhoidal skin tags; K57.30 Diverticulosis of large intestine without perforation or abscess without bleeding; K56.2 Volvulus; Z79.82 Long term (current) use of aspirin; Z79.899 Other long term (current) drug therapy
CPT/HCPCS: 00811; 45380; 45385; 88305; J2250; J2704; J7120

== ENCOUNTER 2017-09-08 13:24 | Inpatient (IN) | payer MEDICARE, OTHER ==
[2017-09-08] MEDS ORDERED: Aspirin 81 MG Tab.Chew CHEW ONE (13:39)
[2017-09-08] MEDS ORDERED: Ticagrelor 90 MG Tab PO ONE (13:39)
[2017-09-08] MEDS ORDERED: Famotidine 20 MG/2 ML SDV IVPUSH ONE (13:39)
--- NOTE | 2017-09-08 13:39 | EDM.PDOC ---
ED HPI GENERAL MEDICAL PROBLEM - General Chief Complaint: Chest Pain Stated Complaint: Tacycardia, Chest pain Time Seen by Provider: 09/08/17 13:35 Source of Information: Reports: Patient, Family (), Old Records ([facility] chart/EMR) History Limitations: Reports: No Limitations - History of Present Illness INITIAL COMMENTS - FREE TEXT/NARRATIVE: The patient was brought to the emergency room via private automobile by his for evaluation of 8/10 left-sided chest pressure associated with some dizziness and dyspnea with symptoms starting while he was eating lunch at about noon today. He did have some history of brief heart flutter lasting for about 15 minutes at 3 AM 2 days ago with no chest pain or anginal type symptoms at that time. Patient has not taken any medications to this point for his above symptoms with no history of change in medical therapy, medication noncompliance , etc., including the patient taking his medications today. Note that patient was initially diagnosed with atrial fibrillation during episode of diverticulitis requiring hospitalization in [place] in July, however no cardiac workup, anticoagulation therapy, etc. since that time. The patient denies any orthostasis, orthopnea, diaphoresis, paresthesias, recent decreased exercise tolerance, or any other anginal-type symptoms. No recent history of abdominal pain, heartburn, nausea, diarrhea, melena, gross hematochezia, or any food intolerance, including fatty foods, etc.. The patient also denies any recent fever, cough, wheezing, dyspnea, etc.. No history of recent headaches, visual changes, diplopia, change in mental status, or other change in neurological status. Onset: Today, Sudden Onset Date: 09/08/17 Onset Time: 12:00 Duration: Constant Location: Reports: Chest. Denies: Head, Face, Neck, Abdomen, Back, Upper Extremity, Left, Upper Extremity, Right, Radiates to Quality: Reports: Pressure, Same as Previous Episode Severity: Moderate Improves with: Reports: None Worsens with: Reports: None Context: Reports: Other (As above) Associated Symptoms: Reports: Chest Pain, Shortness of Breath. Denies: Confusion, Cough, cough w sputum, Diaphoresis, Fever/Chills, Headaches, Loss of Appetite, Malaise, Nausea/Vomiting, Seizure, Syncope, Weakness Treatments [employer]ING [employer]GER: Reports: Other (see below) (None) Chest Pain Score (Numeric/FACES): 8 - Related Data Allergies Allergy/AdvReac Type Severity Reaction Status Date / Time No Known Allergies Allergy Verified 08/18/17 12:34 Home Meds: Home Meds Aspirin [Brad Chewable Aspirin] 81 mg PO DAILY 11/27/13 [History] Omeprazole 20 mg PO DAILY 11/27/13 [History] Simvastatin [Zocor] 40 mg PO BEDTIME 11/27/13 [History] Ursodiol 500 mg PO TID 11/27/13 [History] Atenolol 12.5 mg PO QPM 11/26/15 [History] Folic Acid 1 mg PO BEDTIME 11/26/15 [History] Finasteride [Proscar] 5 mg PO BEDTIME 02/12/17 [History] Levothyroxine [Synthroid] 50 mcg PO ACBREAKFAST 02/12/17 [History] Tamsulosin [Flomax] 0.4 mg PO BEDTIME 02/12/17 [History] Trandolapril 2 mg PO DAILY 02/12/17 [History] predniSONE [Prednisone] 5 mg PO DAILY 02/12/17 [History] sulfaSALAzine [Azulfidine] 1,000 mg PO BID 02/12/17 [History] Vitamin E 400 unit PO DAILY 09/08/17 [History] Past Medical History HEENT History: Reports: Cataract, Hard of Hearing, Impaired Vision. Denies: Allergic Rhinitis, Glaucoma, Macular Degeneration, Retinal Detachment Other HEENT History: Patient wears glasses. 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 Cardiovascular History: Reports: Afib, Arrhythmia, Blood Clots/VTE/DVT, Bypass, CAD, Cardiomyopathy, Heart Failure, Heart Murmur, High Cholesterol, Hypertension , NE, PVD. Denies: Aneurysm, Pacemaker, PTCA, Stents, Syncope Other Cardiovascular History: NE in 1996 with triple bypass as below. Moderate carotid occlusive disease by carotid artery Doppler studies as below with left- sided 5069% stenosis. Mild grade 1 diastolic dysfunction and mild tricuspid valve and mitral valve insufficiency by echocardiogram on 02/15/17 with ejection fraction is 6265 percent at that time. History of right upper lobe PE on postoperative to TUIP procedure as below. Incomplete right bundle branch block. History of PVCs Respiratory History: Reports: Bronchitis, Recurrent, COPD, Intubation, Previous , PE, Pneumonia, Recurrent, Pulmonary Fibrosis, Other (See Below). Denies: Asthma, Intubation, Difficult, Pneumothorax, Sleep Apnea, TB Other Respiratory History: COPD and pulmonary fibrosis by chest x-ray. PE as above. Benign and stable by serial CT scans bilateral pulmonary nodules Gastrointestinal History: Reports: Cholelithiasis, Colon Polyp, Diverticulosis, Gastritis, GERD, GI Bleed, Hemorrhoids, Other (See Below). Denies: Celiac Disease, Chronic Constipation, Chronic Diarrhea, Fecal Incontinence, Hepatitis, Inflammatory Bowel Disease, Irritable Bowel Syndrome, Jaundice, Pancreatitis, PUD Other Gastrointestinal History: Episode of diverticulitis in July 2017 requiring hospitalization in [place] secondary to mild lower GI bleed. History of tubular adenoma in the cecum, transverse colon, and rectal region removed by colonoscopy on 08/18/17 as below. Patient denies previous pancreatitis , etc. despite ERCPs as below. Benign hepatic cysts by CT scan Genitourinary History: Reports: BPH, Prostate Disorder, UTI, Recurrent, Other ( See Below). Denies: Acute Renal Failure, Chronic Renal Insuffiency, Renal Calculus, STD, Urinary Incontinence Other Genitourinary History: Benign large right renal cyst by serial CT scans Musculoskeletal History: Reports: Arthritis, Back Pain, Chronic, Fracture, Neck Pain, Chronic, Osteoarthritis, RA, Other (See Below). Denies: Amputation, Gout , Osteoporosis, SLE Other Musculoskeletal History: Steroid dependent rheumatoid arthritis; fractured nasal fracture, skull and left jaw fracture 1964 secondary to bull injury Neurological History: Reports: Concussion, Headaches, Chronic, Head Trauma, Other (See Below). Denies: Brain Injury, Cerebral Aneurysms, CVA, Migraines, MS , Neuropathy, Diabetic, Neuropathy, Peripheral, Parkinson's, Seizure, TIA Other Neuro History: Previous history of chronic headaches likely secondary to distant head injury in 1964 as above but no problems currently with history of head concussion at that time. Psychiatric History: Reports: None. Denies: Abuse, Victim of, ADD, ADHD, Addiction, Anxiety, Depression, Psych Hospitalization(s), PTSD, Suicide Attempt , Suicidal Ideation Endocrine/Metabolic History: Reports: Hypothyroidism. Denies: Diabetes, Type I , Diabetes, Type II, IDDM, Multinodular Thyroid, Osteoporosis Hematologic History: Reports: None. Denies: Anemia, Blood Transfusion(s), Iron Deficiency Immunologic History: Reports: Immunosuppression, Other (See Below). Denies: AIDS, HIV, SLE Other Immunologic History: Chronic steroid therapy as above Oncologic (Cancer) History: Reports: None, Other (See Below). Denies: Basal Cell Carcinoma, Colon, Esophageal, Hodgkin's Lymphoma, Leukemia, Lymphoma, Malignant Melanoma, Non-Hodgkin's Lymphoma, Prostate, Squamous Cell Carcinoma Other Oncologic History: The patient and his deny previous history of basal cell carcinoma despite previous medical records Dermatologic History: Reports: Seborrheic Dermatitis, Other (See Below). Denies : Eczema, Psoriasis, Venous Stasis Dermatitis Other Dermatologic History: Seborrheic keratosis and additional removal of actinic keratosis from left temporal region on 12/19/14 - Infectious Disease History Infectious Disease History: Reports: Chicken Pox, Measles, Shingles (On his ankle in about 2007). Denies: C-Difficile, Meningitis, Mononucleosis, MRSA, Mumps, Pertussis (Whooping Cough), Rheumatic Fever, Rubella, Scarlet Fever, TB, VRE - Past Surgical History Head Surgeries/Procedures: Reports: Other (See Below) Other Head Surgeries/Procedures: As below HEENT Surgical History: Reports: Cataract Surgery, Naso-Sinus Surgery, Oral Surgery, Other (See Below). Denies: Adenoidectomy, Eye Surgery, Laser Surgery, LASIK, Myringotomy w Tube(s), Tonsillectomy Other HEENT Surgeries/Procedures: Nasal fracture repair and possible frontal sinus secondary to injury in 1964 as above patient denying jaw surgery at this time. Bilateral cataract surgery in about 2011. Complete teeth extraction with complete dentures uppers and lowers Cardiovascular Surgical History: Reports: Coronary Artery Bypass, Vascular Surgery, Other (See Below). Denies: AAA Repair, Aneurysm, Carotid Endarterectomy, Carotid Stents, Coronary Artery Stent, Pacer, Percutaneous Transluminal Angioplasty, Varicose Other Cardiovascular Surgeries/Procedures: She denies previous PTCA/stent despite previous medical records. Three-vessel CABG in 1996 Respiratory Surgical History: Reports: None. Denies: Lung Biopsies, Thoracentesis GI Surgical History: Reports: Cholecystectomy, Colonoscopy, EGD, ERCP, Polypectomy, Other (See Below). Denies: Appendectomy, Hernia, Abdominal, Hernia , Inguinal, Hernia Repair/Other Other GI Surgeries/Procedures: Colonoscopy on 08/18/17 with multiple polypectomies as above his previous colonoscopy in about 2011. EGD on 01/06/04. Laparoscopic cholecystectomy in about 2003. Several previous ERCPs with last procedure in July 2003 and previous sphincterotomy in 2005 Male Surgical History: Reports: Circumcision, TUIP, Vasectomy, Other (See Below). Denies: Renal Calculus Other Male Surgeries/Procedures: TUIP in about November 2015 with postoperative PE as above. Circumcision on 04/15/10. Vasectomy in about 1979 Endocrine Surgical History: Reports: None. Denies: Thyroid Biopsy Neurological Surgical History: Denies: C-Spine, Discectomy, Laminectomy, Lumbar Spine, Sacral Spine, Spinal Fusion, Vertebroplasty Musculoskeletal Surgical History: Reports: None. Denies: Arthroscopic Procedure , Carpal Tunnel, Ganglion Cyst, Joint Replacement, ORIF, Shoulder Surgery Oncologic Surgical History: Reports: None Dermatological Surgical History: Reports: Skin Biopsy, Other (See Below) Other Dermatological Surgeries/Procedures: Removal of actinic keratosis as above - Past Imaging History Past Imaging History: Reports: Angiography (1996 at time of NE), Cardiac Echo ( Last echocardiogram on 02/15/17 with ejection fraction of 6565 percent with findings as above. Previous suboptimal echocardiogram on 01/02/14), Carotid US ( with moderate left-sided disease as above.), CAT Scan (Soft tissues CT scan of the neck on 05/25/16. CT scan of the C-spine and facial bones on . CT of the chest with contrast on 11/26/15 with right upper lobe PE at that time and negative findings at follow-up CT scan on 12/05/15. Noncontrast [address] scan of the chest on 05/29/14. CT of the chest with IV contrast and CT of the brain both on 11/28/13. CT of the abdomen and pelvis on 02/27/08.), Mammogram (02/07/09 with negative findings by patient and his ), MRA (Head on 08/22/17), MRI ( Thoracic spine on 12/04/13), Stress Testing (Last Cardiolite stress test on with ejection fraction of 66%. Low level cardiac stress test on 03/03/14. Cardiolite stress test on 04/06/12.), Ultrasound, Xray Social & Family History - Family History HEENT: Reports: Macular Degeneration, Other (See Below). Denies: Glaucoma, Retinal Detachment Other HEENT Family History: Sister with macular degeneration Cardiac: Reports: Bypass, CAD, Hypertension, NE, Other (See Below). Denies: Afib, Aneurysm, Arrhythmia, Blood Clots/VTE/DVT, High Cholesterol, PVD/COD, Syncope Other Cardiac Family History: Mother with initial NE in her 60s with 2 previous MIs and fatal CHF at age 97. Maternal uncles 4 with history of NE with one uncle dying from his NE in his 70s. One of these uncles did have his fatal NE in his 40s with another dying in his 60s. Brother with history of NE in his 60s with CABG at that time. CHF in mother as below with maternal uncles 2 also with fatal CHF in their 60s. Sister with PTCA/stent in her late 70s. Hypertension in mother and sister. Sister with unknown type of tachycardia Respiratory: Reports: Asthma, Other (See Below). Denies: COPD, PE, Pneumothorax , Sleep Apnea Other Respiratory Family Hisory: Mother with asthma GI: Reports: None. Denies: Celiac Disease, Cholelithiasis, Colon Polyps, GERD, GI bleed, Inflammatory Bowel Disease, Irritable Bowel Syndrome, PUD : Reports: Other (See Below). Denies: Renal Calculus, Renal Disease/ Insufficiency Other Family History: Mother with only one kidney possibly congenital versus atrophy OBGYN: Reports: None. Denies: Endometriosis, Recurrent Spontaneous Musculoskeletal: Reports: RA, Other (See Below). Denies: Gout, SLE Other Musculoskeletal Family History: Paternal aunt with rheumatoid arthritis Neurological: Reports: None. Denies: Alzheimers Disease, Cerebral Aneurysms, CVA, Dementia, Migraines, MS, Parkinson's, Seizure, TIA Psychiatric: Reports: None. Denies: Abuse, Victim of, ADD, ADHD, Anxiety, Depression, Psych Hospitalization(s), Psychosis, PTSD, Suicide Attempt Endocrine/Metabolic: Reports: Diabetes, type II, IDDM, Other (See Below). Denies: Diabetes, Type I, Hypothyroidism Other Endocrine/Metabolic Family History: Paternal uncle with IDDM Hematologic: Reports: None. Denies: Anemia, SLE, Transfusion Reaction Immunologic: Reports: None. Denies: AIDS, HIV, SLE Dermatologic: Reports: None. Denies: Eczema, Psoriasis Oncologic: Reports: None. Denies: Colon, Hodgkin's Lymphoma, Leukemia, Lymphoma , Non-Hodgkin's Lymphoma, Prostate, Skin - Tobacco Use Smoking Status *Q: Former Smoker Tobacco Use Within Last Twelve Months: No Years of Tobacco use: 28 Packs/Tins Daily: 1 (Smoked between ages 19 and 47 with average use of 12 packs per day) Used Tobacco, but Quit: Yes Month Tobacco Last Used: As above Smoking Cessation Information Provided To Patient: No Second Hand Smoke Exposure: No Second Hand Smoke Education Provided: No - Caffeine Use Caffeine Use: Reports: Coffee (6 cups per day), Soda (Occasional Mountain Dew). Denies: Energy Drinks, Tea - Alcohol Use Alcohol Use History: Yes Days Per Week of Alcohol Use: 0 (No previous DWIs, problems with alcohol abuse, etc.) Number of Drinks Per Day: 1 (Usually wine for holidays) Total Drinks Per Week: 0 Alcohol Use in Last Twelve Months: Yes Alcohol Use Frequency: Socially - Recreational Drug Use Recreational Drug Use: No Drug Use in Last 12 Months: No Recreational Drug Type: Denies: Amphetamines (Speed), Cocaine, Heroin, Inhalants (Glues, Solvents, Aerosols), LSD (Acid), Marijuana/Hashish, Methamphetamine, Morphine - Living Situation & Occupation Living situation: Reports: (89, 4 children), with Family () Occupation: Retired ([employer] in 1996) ED ROS GENERAL - Review of Systems Review Of Systems: See Below Constitutional: Reports: No Symptoms. Denies: Fever, Chills, Malaise, Weakness , Fatigue, Night Sweats, Diaphoresis, Decreased Appetite, Weight Loss, Weight Gain HEENT: Reports: Glasses. Denies: Dental Pain, Ear Discharge, Ear Pain, Eye Discharge, Eye Pain, Rhinitis, Sinus Problem, Throat Pain, Throat Swelling, Vertigo, Vision Change Respiratory: Reports: Shortness of Breath. Denies: Wheezing, Pleuritic Chest Pain, Cough, Sputum, Hemoptysis Cardiovascular: Reports: Chest Pain, Dyspnea on Exertion, Lightheadedness, Palpitations. Denies: Blood Pressure Problem, Claudication, Edema, Orthopnea, Syncope Endocrine: Reports: No Symptoms. Denies: Fatigue, High Glucose GI/Abdominal: Reports: No Symptoms. Denies: Abdominal Pain, Anorexia, Black Stool, Bloody Stool, Constipation, Diarrhea, Decreased Appetite, Difficulty Swallowing, Distension, Flatus, Hematemesis, Hematochezia, Melena, Nausea, Stool Incontinence, Vomiting : Reports: No Symptoms. Denies: Discharge, Dysuria, Flank Pain, Frequency, Hematuria, Incontinence, Pain, Urgency, Urinary Retention Musculoskeletal: Reports: No Symptoms. Denies: Neck Pain, Shoulder Pain, Arm Pain, Back Pain, Leg Pain Skin: Reports: No Symptoms. Denies: Diaphoresis, Bruising, Wound Neurological: Reports: Dizziness. Denies: Confusion, Headache, Numbness, Paresthesia, Seizure, Syncope, Tingling, Weakness, Change in Speech Psychiatric: Reports: No Symptoms. Denies: Agitation, Anxiety, Confusion, Depression, Hallucinations Hematologic/Lymphatic: Reports: No Symptoms Immunologic: Reports: No Symptoms ED EXAM, GENERAL - Physical Exam Exam: See Below Exam Limited By: No Limitations General Appearance: Alert, WD/WN, No Apparent Distress Eye Exam: Bilateral Eye: EOMI, Normal Inspection (Patient wearing glasses. No nystagmus), PERRL Ears: Normal External Exam, Hearing Loss (Bilateral hearing aids) Nose: Normal Inspection, Normal Mucosa, No Blood Throat/Mouth: Normal Lips, Normal Gums, Normal Oropharynx, Normal Voice, No Airway Compromise. No: Normal Teeth (Complete ntures uppers and lowers), Dysphagia, Inflammation, Perioral Cyanosis Head: Atraumatic, Normocephalic. No: Facial Swelling, Facial Tenderness, Sinus Tenderness Neck: Supple, Non-Tender, Full Range of Motion, Carotid Bruit (Mild bilateral carotid bruits). No: Lymphadenopathy (L), Lymphadenopathy (R), Thyromegaly Respiratory/Chest: No Respiratory Distress, Normal Breath Sounds, No Accessory Muscle Use, Chest Non-Tender, Rales (Mild bilateral basilar). No: Rhonchi, Wheezing, Pleural Rub, Retractions Cardiovascular: Normal Peripheral Pulses, No Edema, No Gallop, No JVD, No Murmur (Despite echocardiogram as above), Tachycardia, Irregularly Irregular. No: Diastolic Murmur, Systolic Murmur, Gallop/S3, Gallop/S4, Friction Rub Peripheral Pulses: 2+: Radial (L), Radial (R), Dorsalis Pedis (L), Dorsalis Pedis (R) GI/Abdominal: Normal Bowel Sounds, Soft, Non-Tender, No Organomegaly, No Distention, No Abnormal Bruit, No Mass, Pelvis Stable. No: Guarding (Male) Exam: Deferred Rectal (Males) Exam: Deferred Back Exam: Normal Inspection, Full Range of Motion. No: CVA Tenderness (L), CVA Tenderness (R), Muscle Spasm Extremities: Normal Inspection, Normal Range of Motion, Non-Tender, No Pedal Edema, Normal Capillary Refill. No: Vahe's Sign Neurological: Alert, Oriented, CN II-XII Intact, Normal Cognition, Normal Gait, Normal Reflexes (Negative Babinski's), No Motor/Sensory Deficits Psychiatric: Normal Affect, Normal Mood Skin Exam: Warm, Dry, Intact, Normal Color, No Rash. No: Diaphoretic, Ecchymosis, Wound/Incision Lymphatic: No Adenopathy EKG INTERPRETATION EKG Date: 09/08/17 Time: 13:46 Rhythm: A-Fib Rate (Beats/Min): 122 [place]: Normal (Left cardiac axis) P-Wave: Variable QRS: Normal (QRS interval of 0.09 seconds representing repolarization changes with T-wave inversion in lead V1) ST-T: Normal QT: Normal WV/PQ Interval: Not applicable Comparison: Change From Previous EKG (New atrial fibrillation with rapid ventricular response since Cardiolite stress test on 10/23/15) EKG Interpretation Comments: 1. Atrial fibrillation with rapid ventricular response 2. Repolarization changes with history of incomplete right bundle branch block Course - Vital Signs Last Recorded V/S: Last Vital Signs Temp 36.9 C 09/08/17 13:25 Pulse 66 09/08/17 16:47 Resp 18 09/08/17 16:47 BP 111/48 L 09/08/17 16:47 Pulse Ox 100 09/08/17 16:47 Vital Signs - 24 hr 09/08/17 09/08/17 09/08/17 13:25 13:45 14:00 Temperature [ 36.9 C Temporal] Pulse, Peripheral Pulse, 154 H 131 H 108 H Peripheral [ Right Pulse Oximetry] Respiratory 13 15 16 Rate Blood Pressure Blood Pressure 128/69 110/43 L 109/52 L [Left Upper Arm ] O2 Sat by Pulse 99 99 96 Oximetry O2 Sat by Pulse Oximetry [ Nasal Cannula] 09/08/17 09/08/17 09/08/17 14:20 14:21 14:35 Temperature [ Temporal] Pulse, 91 Peripheral Pulse, 102 H 103 H Peripheral [ Right Pulse Oximetry] Respiratory 16 20 Rate Blood Pressure 112/49 L Blood Pressure 114/53 L 118/51 L [Left Upper Arm ] O2 Sat by Pulse 100 96 Oximetry O2 Sat by Pulse 98 Oximetry [ Nasal Cannula] 09/08/17 09/08/17 09/08/17 14:55 15:13 15:28 Temperature [ Temporal] Pulse, 129 H Peripheral Pulse, 102 H 115 H Peripheral [ Right Pulse Oximetry] Respiratory 17 18 Rate Blood Pressure 122/54 L Blood Pressure 103/45 L 122/54 L [Left Upper Arm ] O2 Sat by Pulse 96 100 Oximetry O2 Sat by Pulse Oximetry [ Nasal Cannula] 09/08/17 09/08/17 09/08/17 15:36 15:41 15:55 Temperature [ Temporal] Pulse, Peripheral Pulse, 99 97 59 L Peripheral [ Right Pulse Oximetry] Respiratory 20 23 H 17 Rate Blood Pressure Blood Pressure 97/60 97/60 111/50 L [Left Upper Arm ] O2 Sat by Pulse 100 100 100 Oximetry O2 Sat by Pulse Oximetry [ Nasal Cannula] 09/08/17 09/08/17 16:15 16:47 Temperature [ Temporal] Pulse, Peripheral Pulse, 61 66 Peripheral [ Right Pulse Oximetry] Respiratory 19 18 Rate Blood Pressure Blood Pressure 98/46 L 111/48 L [Left Upper Arm ] O2 Sat by Pulse 99 100 Oximetry O2 Sat by Pulse Oximetry [ Nasal Cannula] - Orders/Labs/Meds Orders: Active Orders 24 hr Category Date Time Status Cardiac Monitoring [RC] . DIRECTED Care 09/08/17 13:39 Active EKG Documentation Completion [RC] ASDIRECTED Care 09/08/17 13:39 Active Oxygen Therapy, ED [RC] CONTINUOUS Care 09/08/17 13:39 Active Peripheral IV Care [RC] . DIRECTED Care 09/08/17 13:39 Active Pulse Oximetry [RC] CONTINUOUS Care 09/08/17 13:39 Active Up With Assistance [RC] PFP Care 09/08/17 13:39 Active Vital Signs [RC] PFP Care 09/08/17 13:39 Active Nothing per Oral Now Diet [DIET] Diet 09/08/17 Breakfast Active Chest 1V Frontal [CR] Stat Exams 09/08/17 13:39 Taken Chest PE [Ang Chest] [CT] Stat Exams 09/08/17 14:40 Taken Enoxaparin [Lovenox] Med 09/08/17 16:30 Active 80 mg SUBCUT Q24H Sodium Chloride 0.9% [Saline Flush] Med 09/08/17 13:39 Active 10 ml FLUSH ASDIRECTED PRN Obtain Past Medical Record [OM.PC] Urgent Oth 09/08/17 13:39 Active Peripheral IV Insertion Adult [OM.PC] Stat Oth 09/08/17 13:39 Ordered Resuscitation Status Stat Resus Stat 09/08/17 13:39 Ordered Medication Orders Enoxaparin Sodium (Lovenox) 80 mg SUBCUT Q24H [facility] Last Admin: 09/08/17 16:29 Dose: 80 mg Sodium Chloride (Saline Flush) 10 ml FLUSH ASDIRECTED PRN PRN Reason: Keep Vein Open Last Admin: 09/08/17 15:29 Dose: 10 ml Labs: Laboratory Tests 09/08/17 09/08/17 09/08/17 Range/Units 13:35 13:35 13:35 WBC 7.3 (4.0-10.2) K/uL RBC 4.11 L (4.33-5.41) M/uL Hgb 13.4 (13.1-16.8) g/dL Hct 39.6 (39.0-49.0) % MCV 96.4 (84.0-98.0) fL MCH 32.6 (28.2-33.3) pg MCHC 33.8 (31.7-36.0) g/dL RDW 13.1 (11.2-14.1) % Plt Count 196 (150-350) K/uL Neut % (Auto) 72.3 (45.0-80.0) % Lymph % (Auto) 16.8 (10.0-50.0) % Dickinson % (Auto) 10.4 (2.0-14.0) % Eos % (Auto) 0.4 (0.0-5.0) % Baso % (Auto) 0.1 (0.0-2.0) % Neut # (Auto) 5.27 (1.40-7.00) K/uL Lymph # (Auto) 1.23 (0.50-3.50) K/uL Dickinson # (Auto) 0.76 (0.00-1.00) K/uL Eos # (Auto) 0.03 (0.00-0.50) K/uL Baso # (Auto) 0.01 (0.00-0.20) K/uL PT 11.2 (9.8-11.7) SEC INR 1.0 APTT 26.9 (22.1-29.8) SEC D-Dimer, Quantitative 964 H (0-400) ng/mL Sodium (136-145) mmol/L Potassium (3.5-5.1) mmol/L Chloride (98-107) mmol/L Carbon Dioxide (21.0-32.0) mmol/L BUN (7-18) mg/dL Creatinine (0.51-1.17) mg/dL Est Cr Clr Drug Dosing mL/min Estimated GFR (MDRD) mL/min Glucose (74-106) mg/dL Lactic Acid (0.4-2.0) mmol/L Uric Acid (2.6-7.2) mg/dL Calcium (8.5-10.1) mg/dL Magnesium (1.8-2.4) mg/dL Total Bilirubin (0.2-1.0) mg/dL AST (15-37) U/L ALT (12-78) U/L Alkaline Phosphatase (46-116) IU/L Creatine Kinase (26-308) U/L Creatine Kinase Index (0.0-2.5) % CK-MB (CK-2) (0.00-3.60) ng/mL Troponin I (0.000-0.056) ng/mL NT-Pro-B Natriuret Pep (0-125) pg/mL Total Protein (6.4-8.2) g/dL Albumin (3.4-5.0) g/dL TSH, Ultra Sensitive (0.358-3.740) mIU/mL 09/08/17 09/08/17 Range/Units 13:35 13:35 WBC (4.0-10.2) K/uL RBC (4.33-5.41) M/uL Hgb (13.1-16.8) g/dL Hct (39.0-49.0) % MCV (84.0-98.0) fL MCH (28.2-33.3) pg MCHC (31.7-36.0) g/dL RDW (11.2-14.1) % Plt Count (150-350) K/uL Neut % (Auto) (45.0-80.0) % Lymph % (Auto) (10.0-50.0) % Dickinson % (Auto) (2.0-14.0) % Eos % (Auto) (0.0-5.0) % Baso % (Auto) (0.0-2.0) % Neut # (Auto) (1.40-7.00) K/uL Lymph # (Auto) (0.50-3.50) K/uL Dickinson # (Auto) (0.00-1.00) K/uL Eos # (Auto) (0.00-0.50) K/uL Baso # (Auto) (0.00-0.20) K/uL PT (9.8-11.7) SEC INR APTT (22.1-29.8) SEC D-Dimer, Quantitative (0-400) ng/mL Sodium 136 (136-145) mmol/L Potassium 4.0 (3.5-5.1) mmol/L Chloride 99 (98-107) mmol/L Carbon Dioxide 25.7 (21.0-32.0) mmol/L BUN 18 (7-18) mg/dL Creatinine 1.07 (0.51-1.17) mg/dL Est Cr Clr Drug Dosing 56.85 mL/min Estimated GFR (MDRD) > 60 mL/min Glucose 171 H (74-106) mg/dL Lactic Acid 1.3 (0.4-2.0) mmol/L Uric Acid 3.2 (2.6-7.2) mg/dL Calcium 8.9 (8.5-10.1) mg/dL Magnesium 1.7 L (1.8-2.4) mg/dL Total Bilirubin 0.7 (0.2-1.0) mg/dL AST 14 L (15-37) U/L ALT 12 (12-78) U/L Alkaline Phosphatase 61 (46-116) IU/L Creatine Kinase 41 (26-308) U/L Creatine Kinase Index 1.5 (0.0-2.5) % CK-MB (CK-2) 0.60 (0.00-3.60) ng/mL Troponin I 0.018 (0.000-0.056) ng/mL NT-Pro-B Natriuret Pep 1000 H (0-125) pg/mL Total Protein 7.3 (6.4-8.2) g/dL Albumin 3.5 (3.4-5.0) g/dL TSH, Ultra Sensitive 2.445 (0.358-3.740) mIU/mL Meds: Medications Generic Name Dose Route Start Last Admin Trade Name Freq PRN Reason Stop Dose Admin Enoxaparin Sodium 80 mg 09/08/17 16:30 09/08/17 16:29 Lovenox SUBCUT 80 mg Q24H BRIGID Administration Sodium Chloride 10 ml 09/08/17 13:39 09/08/17 15:29 Saline Flush FLUSH 10 ml ASDIRECTED PRN Administration Keep Vein Open Discontinued Medications Generic Name Dose Route Start Last Admin Trade Name Freq PRN Reason Stop Dose Admin Aspirin 324 mg 09/08/17 13:39 09/08/17 13:47 Aspirin CHEW 09/08/17 13:40 324 mg ONETIME ONE Administration Diltiazem HCl 10 mg 09/08/17 13:40 09/08/17 13:45 Diltiazem IVPUSH 09/08/17 13:41 10 mg ONETIME ONE Administration Diltiazem HCl 120 mg 09/08/17 14:10 09/08/17 14:21 Cardizem Cd PO 09/08/17 14:11 120 mg ONETIME ONE Administration Famotidine 40 mg 09/08/17 13:39 09/08/17 13:50 Pepcid IVPUSH 09/08/17 13:40 40 mg ONETIME ONE Administration Iopamidol 100 ml 09/08/17 14:44 09/08/17 15:07 Isovue-370 (76%) IVPUSH 09/08/17 14:45 100 ml ONETIME ONE Administration Metoprolol Tartrate 2.5 mg 09/08/17 15:25 09/08/17 15:28 Lopressor IVPUSH 09/08/17 15:26 2.5 mg ONETIME ONE Administration Ticagrelor 180 mg 09/08/17 13:39 09/08/17 13:46 Brilinta PO 09/08/17 13:40 180 mg ONETIME ONE Administration - Radiology Interpretation Free Text/Narrative:: online editor showed initial atrial fibrillation with rapid ventricular response with heart rate in the 160s to 170s with long 8 second pause and subsequent immediate conversion to normal sinus rhythm with heart rate in the 60s at time of admission. No other ectopy or arrhythmia noted Chest x-ray, portable, does show evidence of status post medial sternotomy, mild COPD and pulmonary fibrotic changes, and mild prominence of the proximal aortic arch with additional probable pulmonary hypertension and mild centralized CHF. No pneumothorax, pulmonary infiltrates, etc. Telephone consultation at 16:55 hours with the radiology department at [facility] with verbal report of CTA of the chest using PE protocol. New findings of a mild right middle lobe PE with possibility of bilateral lower lobe pulmonary infiltrates, however no direct evidence of CHF. Otherwise stable multiple pulmonary nodules and hepatic/renal cysts CT Results Date: 09/08/17 CT Results Time: 16:55 Departure - Departure Time of Disposition: 17:25 Disposition: Admitted As Inpatient 68 Condition: Fair Clinical Impression: Atrial fibrillation with rapid ventricular response, HTN, Benign hypertension, COPD, Mild chronic obstructive pulmonary disease, Hypomagnesemia, Rheumatoid arteritis, Hyperglycemia, D-dimer, elevated Chest pain Qualifiers: Chest pain type: chest pain due to myocardial ischemia Ischemic chest pain type : stable angina pectoris Qualified Code(s): I20.8 - Other forms of angina pectoris Coronary artery disease Qualifiers: Coronary Disease-Associated Artery/Lesion type: bypass graft [place] vs. transplanted heart: [place] heart Associated angina: with stable angina Qualified Code(s): I25.708 - Atherosclerosis of coronary artery bypass graft(s) , unspecified, with other forms of angina pectoris Hyperlipidemia Qualifiers: Hyperlipidemia type: unspecified Qualified Code(s): E78.5 - Hyperlipidemia, unspecified CHF (congestive heart failure) Qualifiers: Heart failure type: combined systolic and diastolic Heart failure chronicity: acute on chronic Qualified Code(s): I50.43 - Acute on chronic combined systolic (congestive) and diastolic (congestive) heart failure Gastroesophageal reflux disease Qualifiers: Esophagitis presence: without esophagitis Qualified Code(s): K21.9 - Gastro- esophageal reflux disease without esophagitis Pulmonary embolism Qualifiers: Pulmonary embolism type: other Chronicity: acute Acute cor pulmonale presence: without acute cor pulmonale Qualified Code(s): I26.99 - Other pulmonary embolism without acute cor pulmonale - Problem List & Annotations (1) Chest pain SNOMED Code(s): 91767511 Code(s): R07.9 - CHEST PAIN, UNSPECIFIED Status: Acute Priority: High Current Visit: Yes Onset Date: 09/08/17 Annotation/Comment:: Chest pain protocol initiated immediately on patient's arrival to the emergency room. The patient's chest pain did quickly resolve prior to medical therapy with resolution after application of O2 in the ER. Known history of distant coronary artery disease including CABG as above. Initiate standard rule out NE orders. Cardiology consultation depending on his clinical course. Consider repeat Cardiolite stress test on an outpatient basis. Patient will be admitted to inpatient/acute care on telemetry secondary to his CHF, arrhythmia, PE, etc. as below with multiple medication adjustments likely required Qualifiers: Chest pain type: chest pain due to myocardial ischemia Ischemic chest pain type: stable angina pectoris Qualified Code(s): I20.8 - Other forms of angina pectoris (2) Atrial fibrillation with rapid ventricular response SNOMED Code(s): 428616737596682 Code(s): I48.91 - UNSPECIFIED ATRIAL FIBRILLATION Status: Acute Priority : High Current Visit: Yes Annotation/Comment:: Overall good response to low- dose IV diltiazem, although patient did have a long pause with additional subsequent low-dose IV Lopressor therapy with conversion to normal sinus rhythm at that time. Secondary to his current high-dose Zocor therapy only low-dose diltiazem therapy at this time with patient already on low-dose Tenormin therapy in the a.m.. Continue medication adjustments during this hospitalization. Eliquis therapy to be initiated as below secondary to recurrence of his atrial fibrillation, recurrent PE, etc. They were counseled concerning the lack of antidote to this medication. Consider echocardiogram on an outpatient basis after discharge secondary to his atrial fibrillation and recurrent CHF as below (3) Pulmonary embolus SNOMED Code(s): 17294356 Code(s): I26.99 - OTHER PULMONARY EMBOLISM WITHOUT ACUTE COR PULMONALE Status: Acute Priority: High Current Visit: Yes Onset Date: 09/08/17 Annotation/Comment:: Positive CTA of the chest as above. Subcutaneous Lovenox initiated in the emergency room prior to receiving CT scan results. Secondary to mild pulmonary embolism IV heparin therapy with PE protocol will be initiated in 12 hours. Note recommendation of Coumadin versus Eliquis therapy at discharge as below. Note history of previous right upper lobe postoperative PE on 11/26/15 as above. Qualifiers: Chronicity: acute Acute cor pulmonale presence: without acute cor pulmonale (4) Coronary artery disease SNOMED Code(s): 82449441 Code(s): I25.10 - ATHSCL HEART DISEASE OF [place] CORONARY ARTERY W/O ANG PCTRS Status: Chronic Priority: Medium Current Visit: Yes Annotation/ Comment:: As above Qualifiers: Coronary Disease-Associated Artery/Lesion type: bypass graft [place] vs. transplanted heart: [place] heart Associated angina: with stable angina Qualified Code(s): I25.708 - Atherosclerosis of coronary artery bypass graft(s) , unspecified, with other forms of angina pectoris (5) D-dimer, elevated SNOMED Code(s): 963413480 Code(s): R79.89 - OTHER SPECIFIED ABNORMAL FINDINGS OF BLOOD CHEMISTRY Status: Acute Priority: High Current Visit: Yes Onset Date: 09/08/17 Annotation/Comment:: CTA scan results as above. Venous Doppler studies in the a.m.. Patient started on subcutaneous Lovenox in the emergency room at cardiac dose as above. (6) CHF (congestive heart failure) SNOMED Code(s): 86401568 Code(s): I50.9 - HEART FAILURE, UNSPECIFIED Status: Acute Priority: High Current Visit: Yes Onset Date: 09/08/17 Annotation/Comment:: Only low- dose IV Lasix therapy secondary to his borderline hypotension on admission. Echocardiogram on an outpatient basis as above. Patient is already on an JERMAN inhibitor. Qualifiers: Heart failure type: combined systolic and diastolic Heart failure chronicity: acute on chronic Qualified Code(s): I50.43 - Acute on chronic combined systolic (congestive) and diastolic (congestive) heart failure (7) Hyperlipidemia SNOMED Code(s): 61250151 Code(s): E78.5 - HYPERLIPIDEMIA, UNSPECIFIED Status: Chronic Priority: Medium Current Visit: Yes Annotation/Comment:: Currently under therapy. Repeat lipid panel in the a.m. Qualifiers: Hyperlipidemia type: unspecified Qualified Code(s): E78.5 - Hyperlipidemia , unspecified (8) Hyperglycemia SNOMED Code(s): 90276768 Code(s): R73.9 - HYPERGLYCEMIA, UNSPECIFIED Status: Acute Priority: Medium Current Visit: Yes Onset Date: 09/08/17 Annotation/Comment:: No previous history of diabetes mellitus. Glycosylated hemoglobin in the a.m. (9) Hypomagnesemia SNOMED Code(s): 880211886 Code(s): E83.42 - HYPOMAGNESEMIA Status: Acute Priority: Medium Current Visit: Yes Onset Date: 09/08/17 Annotation/Comment:: Initiate magnesium oxide therapy with close follow-up after discharge (10) Rheumatoid arteritis SNOMED Code(s): 474191852 Code(s): I00 - RHEUMATIC FEVER WITHOUT HEART INVOLVEMENT Status: Chronic Priority: Medium Current Visit: Yes Annotation/Comment:: Steroid-dependent rheumatoid arthritis. Stable by history (11) COPD, Mild chronic obstructive pulmonary disease SNOMED Code(s): 640107991 Code(s): J44.9 - CHRONIC OBSTRUCTIVE PULMONARY DISEASE, UNSPECIFIED Status : Chronic Priority: Medium Current Visit: Yes Annotation/Comment:: Stable by history with no current medical therapy required. Additional mild pulmonary fibrosis by chest x-ray. No recent fever, bronchitic type symptoms, etc. (12) HTN, Benign hypertension SNOMED Code(s): 48596971 Code(s): I10 - ESSENTIAL (PRIMARY) HYPERTENSION Status: Chronic Priority : Medium Current Visit: Yes Annotation/Comment:: Overall stable in the emergency room, however somewhat low prior to admission. Continue to observe closely (13) Gastroesophageal reflux disease SNOMED Code(s): 481826623 Code(s): K21.9 - GASTRO-ESOPHAGEAL REFLUX DISEASE WITHOUT ESOPHAGITIS Status: Chronic Priority: Medium Current Visit: Yes Annotation/Comment:: No recent abdominal complaints or history of GI bleed. No previous history of diverticulitis and mild to lower GI bleed in July with no evidence of persistent bleeding by follow-up colonoscopy as above. High-dose IV Pepcid given as GI prophylaxis. Qualifiers: Esophagitis presence: without esophagitis Qualified Code(s): K21.9 - Gastro -esophageal reflux disease without esophagitis - Problem List Review Problem List Initiated/Reviewed/Updated: Yes - My Orders Last 24 Hours: My Active Orders 09/08/17 13:39 Cardiac Monitoring [RC] . DIRECTED EKG Documentation Completion [RC] ASDIRECTED Oxygen Therapy, ED [RC] CONTINUOUS Peripheral IV Care [RC] . DIRECTED Pulse Oximetry [RC] CONTINUOUS Up With Assistance [RC] PFP Vital Signs [RC] PFP Chest 1V Frontal [CR] Stat Sodium Chloride 0.9% [Saline Flush] 10 ml FLUSH ASDIRECTED PRN Obtain Past Medical Record [OM.PC] Urgent Peripheral IV Insertion Adult [OM.PC] Stat Resuscitation Status Stat 09/08/17 14:40 Chest PE [Ang Chest] [CT] Stat 09/08/17 16:30 Enoxaparin [Lovenox] 80 mg SUBCUT Q24H 09/08/17 Breakfast Nothing per Oral Now Diet [DIET] - Assessment/Plan Admission H&P: Please use this note as an admission H&P Last 24 Hours: My Active Orders 09/08/17 13:39 Cardiac Monitoring [RC] . DIRECTED EKG Documentation Completion [RC] ASDIRECTED Oxygen Therapy, ED [RC] CONTINUOUS Peripheral IV Care [RC] . DIRECTED Pulse Oximetry [RC] CONTINUOUS Up With Assistance [RC] PFP Vital Signs [RC] PFP Chest 1V Frontal [CR] Stat Sodium Chloride 0.9% [Saline Flush] 10 ml FLUSH ASDIRECTED PRN Obtain Past Medical Record [OM.PC] Urgent Peripheral IV Insertion Adult [OM.PC] Stat Resuscitation Status Stat 09/08/17 14:40 Chest PE [Ang Chest] [CT] Stat 09/08/17 16:30 Enoxaparin [Lovenox] 80 mg SUBCUT Q24H 09/08/17 Breakfast Nothing per Oral Now Diet [DIET] Assessment:: As above Plan: As above. Extensive precautions were given to the patient and his , who are in agreement with the treatment plan. [facility] physician assumes care in the a.m.. The patient will require about 3-4 days of inpatient/acute care secondary to multiple health problems as above.
[2017-09-08] MEDS ORDERED: Diltiazem 25 MG/5 ML SDV IVPUSH ONE (13:40)
[2017-09-08 14:10] LABS: CHLORIDE,CL 99 mmol/L (98-107); SODIUM,NA 136 mmol/L (136-145)
[2017-09-08] MEDS ORDERED: Diltiazem 120 MG Cap.CD PO ONE (14:10)
[2017-09-08] MEDS ORDERED: Iopamidol 755 Mg/ML 100 ML Bottle IVPUSH ONE (14:44)
[2017-09-08] MEDS ORDERED: Metoprolol Tartrate 5 MG/5 ML SDV IVPUSH ONE (15:25)
[2017-09-08] MEDS: Sodium Chloride 0.9% 10 ML Syringe FLUSH PRN ×2 (15:29→20:25)
[2017-09-08] MEDS ORDERED: Enoxaparin 80 MG/0.8 ML Syringe SUBCUT SCH (16:30)
[2017-09-08] MEDS ORDERED: Sodium Chloride 0.9% 10 ML Syringe FLUSH PRN (17:50)
[2017-09-08] MEDS ORDERED: Acetaminophen 325 MG Tab PO PRN (17:50)
[2017-09-08] MEDS ORDERED: Temazepam 15 MG Cap PO PRN (17:50)
[2017-09-08] MEDS ORDERED: [UNRECOGNIZED DRUG - REMARK] PO SCH (18:00)
[2017-09-08] MEDS ORDERED: Magnesium Oxide 400 MG Tab PO SCH (18:00)
[2017-09-08] MEDS ORDERED: sulfaSALAzine 500 MG Tab PO SCH (18:00)
[2017-09-08] MEDS ORDERED: Potassium Chloride 20 MEQ Tab.ER PO SCH (18:00)
[2017-09-08] MEDS ORDERED: Non-Formulary Medication 1 Each (Simvastatin [Zocor] 40 MG) PO SCH (20:00)
[2017-09-08] MEDS ORDERED: Simvastatin 10 MG Tab PO SCH (20:00)
[2017-09-08] MEDS ORDERED: Tamsulosin 0.4 MG Cap.ER PO SCH (20:00)
[2017-09-08] MEDS ORDERED: Finasteride 5 MG Tab PO SCH (20:00)
[2017-09-08] MEDS ORDERED: Folic Acid 1 MG Tab PO SCH (20:00)
[2017-09-08] MEDS: Furosemide 20 MG/2 ML VIAL IVPUSH SCH (20:25)
[2017-09-09] MEDS ORDERED: Apixaban 5 MG Tab PO ONE (04:30)
[2017-09-09] MEDS: Furosemide 20 MG/2 ML VIAL IVPUSH SCH (05:30)
[2017-09-09] MEDS ORDERED: Diltiazem 25 MG/5 ML SDV IVPUSH ONE ×2 (06:49→10:02)
[2017-09-09] MEDS ORDERED: Levothyroxine 50 MCG Tab PO SCH (07:30)
[2017-09-09] MEDS ORDERED: Metoprolol Tartrate 5 MG/5 ML SDV IVPUSH ONE (07:34)
[2017-09-09 07:39] LABS: CHLORIDE,CL 100 mmol/L (98-107); SODIUM,NA 138 mmol/L (136-145)
[2017-09-09] MEDS ORDERED: Potassium Chloride 20 MEQ Tab.ER PO ONE (07:44)
[2017-09-09] MEDS ORDERED: predniSONE 5 MG Tab PO SCH (08:00)
[2017-09-09] MEDS ORDERED: TRANDOLAPRIL 2 MG PO SCH (08:00)
[2017-09-09] MEDS ORDERED: Metoprolol Tartrate 50 MG Tab PO SCH ×2 (08:00)
--- NOTE | 2017-09-09 09:26 | PCM.SN ---
- Free Text/Narrative Note: Patient had a recurrence of his atrial fibrillation with rapid ventricular response this morning. He was treated aggressively with IV diltiazem and low- dose IV Lopressor therapy with overall good results. Persistent atrial fibrillation with pulses in the 90s to 120s. EKG 2 including right-sided EKG do not show any evidence of acute ischemic changes, despite EKG automatic read falsely indicating an acute SC. Serial cardiac enzymes are negative to this point, including this a.m. Nonspecific symptoms resolved after medical therapy as above. Note current Eliquis therapy and current of mild PE as per emergency room note. Dr. Paul updated concerning patient's clinical course as above. She will further round on the patient later this morning.
[2017-09-09] MEDS ORDERED: Diltiazem 25 MG/5 ML SDV ONE (10:06)
[2017-09-09] MEDS: Sodium Chloride 0.9% 10 ML Syringe FLUSH PRN ×2 (10:08→10:42)
[2017-09-09] MEDS ORDERED: Diltiazem 100 MG in Sodium Chloride 0.9% 100 ML IV SCH (10:15)
[2017-09-09] MEDS ORDERED: Magnesium Sulfate/Water 2 GM in Premix Bag 1 BAG IV ONE (10:27)
[2017-09-09] MEDS ORDERED: LORazepam 2 MG/ML MDV IVPUSH ONE (10:29)
[2017-09-09] MEDS ORDERED: Sodium Chloride 0.9% 250 ML IV SCH (10:45)
--- NOTE | 2017-09-09 10:56 | PCM.DCSUM1 ---
Discharge Summary - Hospital Course Brief History: See ER noted. Admitted for Afib with RVR/PE - Discharge Data Discharge Date: 09/09/17 Discharge Disposition: DC/Tfer to Acute Hospital 02 Condition: Good - Discharge Diagnosis/Problem(s) (1) Atrial fibrillation with rapid ventricular response SNOMED Code(s): 052934295871625 ICD Code: I48.91 - UNSPECIFIED ATRIAL FIBRILLATION Status: Acute Priority : High Current Visit: Yes Problem Details: Reverted to Afib with RVR this morning. Cardizem given. Magnesium ordered. Cardizem drip established. Some improvement in rate noted presently but remains in Afib. Have discussed patient with /hospitalist at [facility]. Plan is to transfer patient to higher level of care given persistance of RVR. (2) CHF (congestive heart failure) SNOMED Code(s): 97074466 ICD Code: I50.9 - HEART FAILURE, UNSPECIFIED Status: Acute Priority: High Current Visit: Yes Onset Date: 09/08/17 Problem Details: Only low- dose IV Lasix therapy secondary to his borderline hypotension on admission. Echocardiogram on an outpatient basis as above. Patient is already on an JERMAN inhibitor. Qualifiers: Heart failure type: combined systolic and diastolic Heart failure chronicity: acute on chronic Qualified Code(s): I50.43 - Acute on chronic combined systolic (congestive) and diastolic (congestive) heart failure (3) Hypomagnesemia SNOMED Code(s): 770540487 ICD Code: E83.42 - HYPOMAGNESEMIA Status: Acute Priority: Medium Current Visit: Yes Onset Date: 09/08/17 Problem Details: IV Magnesium ordered as this may help improve odds of rate response with the current Afib with RVR (4) Pulmonary embolus SNOMED Code(s): 64475365 ICD Code: I26.99 - OTHER PULMONARY EMBOLISM WITHOUT ACUTE COR PULMONALE Status: Acute Priority: High Current Visit: Yes Onset Date: 09/08/17 Problem Details: Positive CTA of the chest as above. Subcutaneous Lovenox initiated in the emergency room prior to receiving CT scan results. Eliquis ordered. Qualifiers: Pulmonary embolism type: other Chronicity: acute Acute cor pulmonale presence: without acute cor pulmonale Qualified Code(s): I26.99 - Other pulmonary embolism without acute cor pulmonale - Patient Summary/Data Hospital Course: Troponin/CKMB remained negative. Patient rested comfortably after admission from ER. Redeveloped Afib with RVR around shift change this morning. Denied chest pain or acute SOB. [place] light headed if he tried to ambulate. Preferred to stay in bed. Blood pressure and oxygenation remained stable. Cardizem IV ordered. This was followed by Cardizem drip and IV Magnesium. Call placed to [facility] to discuss transfer of patient to higher level of care. Discussed patient with . He accepted the patient and transfer process initiated. Patient did convert to sinus rhythm around 11am, and had an almost 6sec pause as he spontaneously changed from the Afib to Sinus rhythm. Patient transferred by ALS ambulance. - Discharge Plan Home Medications: Home Meds Aspirin [Brad Chewable Aspirin] 81 mg PO DAILY 11/27/13 [History] Omeprazole 20 mg PO DAILY 11/27/13 [History] Simvastatin [Zocor] 40 mg PO BEDTIME 11/27/13 [History] Ursodiol 500 mg PO TID 11/27/13 [History] Atenolol 12.5 mg PO QPM 11/26/15 [History] Folic Acid 1 mg PO BEDTIME 11/26/15 [History] Finasteride [Proscar] 5 mg PO BEDTIME 02/12/17 [History] Levothyroxine [Synthroid] 50 mcg PO ACBREAKFAST 02/12/17 [History] Tamsulosin [Flomax] 0.4 mg PO BEDTIME 02/12/17 [History] Trandolapril 2 mg PO DAILY 02/12/17 [History] predniSONE [Prednisone] 5 mg PO DAILY 02/12/17 [History] sulfaSALAzine [Azulfidine] 1,000 mg PO BID 02/12/17 [History] Vitamin E 400 unit PO DAILY 09/08/17 [History] Forms: ED Department Discharge Referrals: Jean Carlos Cisneros, [facility] [Primary Care Provider] - - Discharge Summary/Plan Comment DC Time >30 min.: Yes (Pending final determination of bed location at [facility]. ) - General Info Date of Service: 09/09/17 Subjective Update: Patient feels anxious. Feels like he is not emptying bladder/has issues with enlarged prostate. No pain. Feels light headed if he gets up and prefers to lay in bed. No SOB. Functional Status: Reports: Pain Controlled. Denies: Urinating, New Symptoms - Review of Systems General: Reports: Appetite (decreased), Other (doesnt "feel right"). Denies: Fever, Chills, Night Sweats HEENT: Reports: No Symptoms Pulmonary: Reports: No Symptoms Cardiovascular: Reports: Palpitations, Dyspnea on Exertion, Lightheadedness ( with walking). Denies: Chest Pain Gastrointestinal: Reports: No Symptoms Genitourinary: Reports: Retention Musculoskeletal: Reports: No Symptoms (no acute changes) Skin: Reports: No Symptoms Neurological: Denies: Headache, Syncope, Change in Speech, Gait Disturbance Psychiatric: Reports: Anxiety - Patient Data Vitals - Most Recent: Last Vital Signs Temp 37.0 C 09/09/17 06:47 Pulse 97 09/09/17 10:27 Resp 20 09/09/17 06:47 BP 113/47 L 09/09/17 10:27 Pulse Ox 100 09/09/17 06:47 Weight - Most Recent: 78.698 kg I&O - Last 24 hours: Intake & Output 09/08/17 09/09/17 09/09/17 22:59 06:59 14:59 Intake Total 240 Output Total 2400 800 Balance -2160 -800 Lab Results - Last 24 hrs: Laboratory Results - last 24 hr 09/08/17 09/09/17 09/09/17 Range/Units 20:50 06:20 06:20 WBC 6.5 (4.0-10.2) K/uL RBC 4.05 L (4.33-5.41) M/uL Hgb 13.2 (13.1-16.8) g/dL Hct 38.8 L (39.0-49.0) % MCV 95.8 (84.0-98.0) fL MCH 32.6 (28.2-33.3) pg MCHC 34.0 (31.7-36.0) g/dL RDW 12.9 (11.2-14.1) % Plt Count 195 (150-350) K/uL Neut % (Auto) 72.5 (45.0-80.0) % Lymph % (Auto) 14.2 (10.0-50.0) % [place] % (Auto) 12.2 (2.0-14.0) % Eos % (Auto) 0.8 (0.0-5.0) % Baso % (Auto) 0.3 (0.0-2.0) % Neut # (Auto) 4.74 (1.40-7.00) K/uL Lymph # (Auto) 0.93 (0.50-3.50) K/uL [place] # (Auto) 0.80 (0.00-1.00) K/uL Eos # (Auto) 0.05 (0.00-0.50) K/uL Baso # (Auto) 0.02 (0.00-0.20) K/uL D-Dimer, Quantitative 974 H (0-400) ng/mL Sodium (136-145) mmol/L Potassium (3.5-5.1) mmol/L Chloride (98-107) mmol/L Carbon Dioxide (21.0-32.0) mmol/L BUN (7-18) mg/dL Creatinine (0.51-1.17) mg/dL Est Cr Clr Drug Dosing mL/min Estimated GFR (MDRD) mL/min Glucose (74-106) mg/dL Hemoglobin A1c (4.3-5.7) % Calcium (8.5-10.1) mg/dL Total Bilirubin (0.2-1.0) mg/dL AST (15-37) U/L ALT (12-78) U/L Alkaline Phosphatase (46-116) IU/L Creatine Kinase 37 (26-308) U/L Creatine Kinase Index 1.6 (0.0-2.5) % CK-MB (CK-2) 0.60 (0.00-3.60) ng/mL Troponin I 0.042 (0.000-0.056) ng/mL NT-Pro-B Natriuret Pep (0-125) pg/mL Total Protein (6.4-8.2) g/dL Albumin (3.4-5.0) g/dL Triglycerides (30-150) mg/dL Cholesterol (100-200) mg/dL LDL Cholesterol, Calc (0-100) mg/dL HDL Cholesterol (40-60) mg/dL 09/09/17 09/09/17 09/09/17 Range/Units 06:20 06:20 09:45 WBC (4.0-10.2) K/uL RBC (4.33-5.41) M/uL Hgb (13.1-16.8) g/dL Hct (39.0-49.0) % MCV (84.0-98.0) fL MCH (28.2-33.3) pg MCHC (31.7-36.0) g/dL RDW (11.2-14.1) % Plt Count (150-350) K/uL Neut % (Auto) (45.0-80.0) % Lymph % (Auto) (10.0-50.0) % [place] % (Auto) (2.0-14.0) % Eos % (Auto) (0.0-5.0) % Baso % (Auto) (0.0-2.0) % Neut # (Auto) (1.40-7.00) K/uL Lymph # (Auto) (0.50-3.50) K/uL [place] # (Auto) (0.00-1.00) K/uL Eos # (Auto) (0.00-0.50) K/uL Baso # (Auto) (0.00-0.20) K/uL D-Dimer, Quantitative (0-400) ng/mL Sodium 138 (136-145) mmol/L Potassium 3.4 L (3.5-5.1) mmol/L Chloride 100 (98-107) mmol/L Carbon Dioxide 32.0 (21.0-32.0) mmol/L BUN 21 H (7-18) mg/dL Creatinine 1.02 (0.51-1.17) mg/dL Est Cr Clr Drug Dosing 59.64 mL/min Estimated GFR (MDRD) > 60 mL/min Glucose 110 H (74-106) mg/dL Hemoglobin A1c 5.5 (4.3-5.7) % Calcium 9.0 (8.5-10.1) mg/dL Total Bilirubin 0.5 (0.2-1.0) mg/dL AST 13 L (15-37) U/L ALT 13 (12-78) U/L Alkaline Phosphatase 57 (46-116) IU/L Creatine Kinase 32 (26-308) U/L Creatine Kinase Index 1.3 (0.0-2.5) % CK-MB (CK-2) 0.40 (0.00-3.60) ng/mL Troponin I 0.020 0.011 (0.000-0.056) ng/mL NT-Pro-B Natriuret Pep 1189 H (0-125) pg/mL Total Protein 7.2 (6.4-8.2) g/dL Albumin 3.3 L (3.4-5.0) g/dL Triglycerides 102 (30-150) mg/dL Cholesterol 186 (100-200) mg/dL LDL Cholesterol, Calc 90 (0-100) mg/dL HDL Cholesterol 76 H (40-60) mg/dL Med Orders - Current: Current Medications Acetaminophen (Tylenol) 650 mg PO Q4H PRN PRN Reason: Pain Last Admin: 09/08/17 22:09 Dose: 650 mg Apixaban (Eliquis) 10 mg PO BID [facility] Diltiazem HCl (Cardizem Cd) 120 mg PO QPM [facility] Famotidine (Pepcid) 20 mg IVPUSH QPM [facility] Finasteride (Proscar) 5 mg PO BEDTIME [facility] Last Admin: 09/08/17 20:25 Dose: 5 mg Folic Acid (Folic Acid) 1 mg PO BEDTIME [facility] Last Admin: 09/08/17 20:25 Dose: 1 mg Furosemide (Lasix) 20 mg IVPUSH Q12H [facility] Last Admin: 09/09/17 05:30 Dose: 20 mg Diltiazem HCl 100 mg/ Sodium (Chloride) 100 mls @ 5 mls/hr IV TITRATE [facility]; 5 MG /HR PRN Reason: Protocol Last Admin: 09/09/17 10:27 Dose: 5 mg/hr, 5 mls/hr Magnesium Sulfate 2 gm/ Premix 50 mls @ 50 mls/hr IV ONETIME ONE Stop: 09/09/17 11:26 Last Admin: 09/09/17 10:37 Dose: 50 mls/hr Sodium Chloride (Normal Saline) 250 mls @ 50 mls/hr IV ASDIRECTED [facility] Levothyroxine Sodium (Synthroid) 50 mcg PO ACBREAKFAST [facility] Magnesium Oxide (Magnesium Oxide) 400 mg PO QPM [facility] Last Admin: 09/08/17 20:26 Dose: 400 mg Metoprolol Tartrate (Lopressor) 12.5 mg PO BID [facility] Last Admin: 09/09/17 07:11 Dose: 12.5 mg Metoprolol Tartrate (Lopressor) 12.5 mg PO BID [facility] Non-FormUrsodiol (500 Mg) 500 mg PO TID [facility] Potassium Chloride (Klor-Con M20) 20 meq PO TID [facility] Prednisone (Prednisone) 5 mg PO DAILY [facility] Simvastatin (Zocor) 10 mg PO BEDTIME [facility] Last Admin: 09/08/17 20:26 Dose: 10 mg Sodium Chloride (Saline Flush) 10 ml FLUSH ASDIRECTED PRN PRN Reason: Keep Vein Open Last Admin: 09/09/17 10:42 Dose: 10 ml Sodium Chloride (Saline Flush) 10 ml FLUSH Q12HR PRN PRN Reason: Keep Vein Open Last Admin: 09/09/17 07:07 Dose: 10 ml Sulfasalazine (Sulfasalazine) 1,000 mg PO BID [facility] Last Admin: 09/08/17 20:26 Dose: 1,000 mg Tamsulosin HCl (Flomax) 0.4 mg PO BEDTIME [facility] Last Admin: 09/08/17 20:27 Dose: 0.4 mg Temazepam (Restoril) 15 mg PO BEDTIME PRN PRN Reason: Insomnia Trandolapril (Trandolapril) 2 mg PO DAILY [facility] Discontinued Medications Apixaban (Eliquis) 10 mg PO ONETIME ONE Stop: 09/09/17 04:31 Last Admin: 09/09/17 05:32 Dose: 10 mg Aspirin (Aspirin) 324 mg CHEW ONETIME ONE Stop: 09/08/17 13:40 Last Admin: 09/08/17 13:47 Dose: 324 mg Diltiazem HCl (Diltiazem) 10 mg IVPUSH ONETIME ONE Stop: 09/08/17 13:41 Last Admin: 09/08/17 13:45 Dose: 10 mg Diltiazem HCl (Cardizem Cd) 120 mg PO ONETIME ONE Stop: 09/08/17 14:11 Last Admin: 09/08/17 14:21 Dose: 120 mg Diltiazem HCl (Diltiazem) 10 mg IVPUSH ONETIME ONE Stop: 09/09/17 06:50 Last Admin: 09/09/17 07:03 Dose: 10 mg Diltiazem HCl (Diltiazem) 10 mg IVPUSH ONETIME ONE Stop: 09/09/17 10:03 Last Admin: 09/09/17 10:08 Dose: 10 mg Diltiazem HCl (Diltiazem) Confirm Administered Dose 25 mg .ROUTE .STK-MED ONE Stop: 09/09/17 10:07 Last Admin: 09/09/17 10:36 Dose: Not Given Enoxaparin Sodium (Lovenox) 80 mg SUBCUT Q24H [facility] Last Admin: 09/08/17 16:29 Dose: 80 mg Famotidine (Pepcid) 40 mg IVPUSH ONETIME ONE Stop: 09/08/17 13:40 Last Admin: 09/08/17 13:50 Dose: 40 mg Iopamidol (Isovue-370 (76%)) 100 ml IVPUSH ONETIME ONE Stop: 09/08/17 14:45 Last Admin: 09/08/17 15:07 Dose: 100 ml Lorazepam (Ativan) 1 mg IVPUSH ONETIME ONE Stop: 09/09/17 10:30 Last Admin: 09/09/17 10:41 Dose: 1 mg Metoprolol Tartrate (Lopressor) 2.5 mg IVPUSH ONETIME ONE Stop: 09/08/17 15:26 Last Admin: 09/08/17 15:28 Dose: 2.5 mg Metoprolol Tartrate (Lopressor) 2.5 mg IVPUSH ONETIME ONE Stop: 09/09/17 07:35 Last Admin: 09/09/17 07:42 Dose: 2.5 mg Non-Formulary Medication (Simvastatin [Zocor]) 40 mg PO BEDTIME [facility] Potassium Chloride (Klor-Con M20) 20 meq PO BID [facility] Last Admin: 09/08/17 20:26 Dose: 20 meq Potassium Chloride (Klor-Con M20) 40 meq PO ONETIME ONE Stop: 09/09/17 07:45 Ticagrelor (Brilinta) 180 mg PO ONETIME ONE Stop: 09/08/17 13:40 Last Admin: 09/08/17 13:46 Dose: 180 mg - Exam Quality Assessment: Reports: Supplemental Oxygen General: Reports: Alert, Oriented, Cooperative, No Acute Distress HEENT: Reports: Pupils Equal, Pupils Reactive, EOMI, Mucous Membr. Moist/[place] Neck: Reports: Supple Lungs: Reports: Clear to Auscultation, Normal Respiratory Effort Cardiovascular: Reports: Irregular Rhythm, Tachycardia GI/Abdominal Exam: Soft, Non-Tender (Male) Exam: Deferred Rectal (Males) Exam: Deferred Extremities: Other (Nursing staff reported some appearance of mottling lower legs, this has improved by time of visit. ) Skin: Reports: Warm, Dry Neurological: Reports: No New Focal Deficit Psy/Mental Status: Reports: Alert, Anxious *Q Meaningful Use (DIS) - VTE *Q VTE Criteria *Q: - Stroke *Q Stroke Criteria *Q: - AMI *Q AMI Criteria *Q:
[2017-09-09] MEDS ORDERED: Lidocaine 2% HCl 11 ML Jelly Filled Syringe ONE (11:33)
[2017-09-09] MEDS ORDERED: Potassium Chloride 20 MEQ Tab.ER PO SCH (12:00)
--- NOTE | 2017-09-09 12:02 | PCM.SN ---
- Free Text/Narrative Note: I was asked to assess an attempt Gilman catheter placement. This was done due to urine retention is he's been unable to void since given diuretics this morning. Initial temperature nursing staff with unsuccessful Draped and prepped in sterile fashion with initial attempt of 16 Turkish caudate tip catheter which met significant resistance. There was noted mild clotting from the urethra upon removal. We then used copious lidocaine jelly to the urethra itself as well as to a 12 Turkish silicone catheter which met resistance and mild spasm of the prostate. Unsuccessful catheterization attempts 2 Discussed with patient the need for urology consult upon reaching tertiary center for cardiac maintenance monitoring as it is been over 2 years since TURP was performed.
--- NOTE | 2017-09-09 12:16 | PCM.SN ---
- Free Text/Narrative Note: Repeat EKG at 1200 Sinus rhythm, rate 68 P wave present. QRS unremarkable. No acute ST elevation/depression suggestive of acute ischemia
[2017-09-09 12:31] VITALS: BP 123/53
[2017-09-09] MEDS ORDERED: Apixaban 5 MG Tab PO SCH (18:00)
[2017-09-09] MEDS ORDERED: Famotidine 20 MG/2 ML SDV IVPUSH SCH (18:00)
[2017-09-09] MEDS ORDERED: Diltiazem 120 MG Cap.CD PO SCH (18:00)
== END 2017-09-09 13:10 | DRG 308 ==
LOC: LL.ED 13:24 → UNDOADMIN 17:01 → LL.MS 17:01 → UNDODISIN 09-09 13:10
PROVIDERS: ADMIT Family Medicine; ATTEND Emergency Medicine
DX: I48.1 Persistent atrial fibrillation (principal); I50.43 Acute on chronic combined systolic (congestive) and diastolic (congestive) heart failure; I26.90 Septic pulmonary embolism without acute cor pulmonale; I25.810 Atherosclerosis of coronary artery bypass graft(s) without angina pectoris; N40.1 Benign prostatic hyperplasia with lower urinary tract symptoms; R33.8 Other retention of urine; E78.5 Hyperlipidemia, unspecified; I11.0 Hypertensive heart disease with heart failure; I25.2 Old myocardial infarction; J84.10 Pulmonary fibrosis, unspecified; K21.9 Gastro-esophageal reflux disease without esophagitis; M19.90 Unspecified osteoarthritis, unspecified site; M06.9 Rheumatoid arthritis, unspecified; G89.29 Other chronic pain; M54.9 Dorsalgia, unspecified; E03.9 Hypothyroidism, unspecified; E83.42 Hypomagnesemia; H91.93 Unspecified hearing loss, bilateral; H54.7 Unspecified visual loss; Z79.82 Long term (current) use of aspirin; Z79.52 Long term (current) use of systemic steroids; Z79.899 Other long term (current) drug therapy
CPT/HCPCS: 36415; 71045; 71275; 80053; 82550; 82553; 83605; 83735; 83880; 84443; 84484; 84550; 85025; 85379; 85610; 85730; 93005; 96372; 96374; 96375; 99285; A9270 ×3; J1650; J3490; J7050; Q9967 ×2; 80061; 83036; J1940; J2060; J3475; S0028

== ENCOUNTER 2017-09-20 16:57 | Inpatient (IN) | payer MEDICARE, OTHER ==
[2017-09-20] MEDS ORDERED: Famotidine 20 MG/2 ML SDV IVPUSH ONE (17:05)
--- NOTE | 2017-09-20 17:05 | EDM.PDOC ---
ED HPI GENERAL MEDICAL PROBLEM - General Chief Complaint: Cardiovascular Problem Stated Complaint: fast heart beat Time Seen by Provider: 09/20/17 17:00 Source of Information: Reports: Patient, Family (), Old Records ([facility] chart/EMR) History Limitations: Reports: No Limitations - History of Present Illness INITIAL COMMENTS - FREE TEXT/NARRATIVE: Patient was brought to the emergency room via private automobile by his for evaluation of recurrence of his tachycardia with hospitalization in this facility for refractory atrial fibrillation/flutter with rapid ventricular response from 09/08 through 09/09/17 with transfer to [facility] on that day. No significant additional cardiac workup other than apparent additional echocardiogram as below. Patient was not continued on Cardizem CD with IV diltiazem drip initiated in our facility. Also note that the patient was diagnosed with a small pulmonary embolism during recent hospitalization as above with patient currently on Eliquis. He denies any medication noncompliance. Patient was changed from previous atenolol to low-dose twice a day Lopressor therapy. His tachycardia started at about 16:15 hours while he was drinking some coffee at home. The patient denies any chest pain/pressure, orthostasis, orthopnea, diaphoresis, paresthesias, recent decreased exercise tolerance, or any other anginal-type symptoms, although he did have some mild dizziness with his tachycardia. No recent history of abdominal pain, heartburn, nausea, diarrhea, melena, gross hematochezia, or any food intolerance, including fatty foods, etc.. The patient also denies any recent fever, cough, wheezing, dyspnea, etc.. 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: Other (see below) (None) - Related Data Allergies Allergy/AdvReac Type Severity Reaction Status Date / Time No Known Allergies Allergy Verified 09/20/17 17:59 Home Meds: Home Meds Aspirin [Brad Chewable Aspirin] 81 mg PO DAILY 11/27/13 [History] Omeprazole 20 mg PO DAILY 11/27/13 [History] Simvastatin [Zocor] 40 mg PO BEDTIME 11/27/13 [History] Ursodiol 500 mg PO TID 11/27/13 [History] Folic Acid 1 mg PO BEDTIME 11/26/15 [History] Finasteride [Proscar] 5 mg PO BEDTIME 02/12/17 [History] Levothyroxine [Synthroid] 50 mcg PO ACBREAKFAST 02/12/17 [History] Tamsulosin [Flomax] 0.4 mg PO BEDTIME 02/12/17 [History] predniSONE [Prednisone] 5 mg PO DAILY 02/12/17 [History] sulfaSALAzine [Azulfidine] 1,000 mg PO BID 02/12/17 [History] Vitamin E 400 unit PO DAILY 09/08/17 [History] Apixaban [Eliquis] 5 mg PO BID 09/20/17 [History] Metoprolol Tartrate 25 mg PO BID 09/20/17 [History] Past Medical History HEENT History: Reports: Cataract, Hard of Hearing, Impaired Vision. Denies: Allergic Rhinitis, Glaucoma, Macular Degeneration, Retinal Detachment Other HEENT History: Patient wears glasses. 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 Previous nasal and facial fractures as below. Cardiovascular History: Reports: Afib, Arrhythmia, Blood Clots/VTE/DVT, Bypass, CAD, Cardiomyopathy, Heart Failure, Heart Murmur, High Cholesterol, Hypertension , OR, PVD. Denies: Aneurysm, Pacemaker, PTCA, Stents, Syncope Other Cardiovascular History: OR in 1996 with triple bypass as below. Moderate carotid occlusive disease by carotid artery Doppler studies as below with left- sided 5069% stenosis. Mild grade 1 diastolic dysfunction and mild tricuspid valve and mitral valve insufficiency by echocardiogram on 02/15/17 with ejection fraction is 6265 percent at that time. History of right upper lobe PE on postoperative to TUIP procedure as below. Incomplete/complete right bundle branch block. History of PVCs. Newly diagnosed atrial fibrillation with rapid ventricular response on 09/08/17. Additional repeat small right middle lobe pulmonary embolism on 09/08/17 Respiratory History: Reports: Bronchitis, Recurrent, COPD, Intubation, Previous , PE, Pneumonia, Recurrent, Pulmonary Fibrosis, Other (See Below). Denies: Asthma, Intubation, Difficult, Pneumothorax, Sleep Apnea, TB Other Respiratory History: COPD and pulmonary fibrosis by chest x-ray. PE as above. Benign and stable by serial CT scans bilateral pulmonary nodules Gastrointestinal History: Reports: Cholelithiasis, Colon Polyp, Diverticulosis, Gastritis, GERD, GI Bleed, Hemorrhoids, Other (See Below) Other Gastrointestinal History: Episode of diverticulitis in July 2017 requiring hospitalization in [place] secondary to mild lower GI bleed. History of tubular adenoma in the cecum, transverse colon, and rectal region removed by colonoscopy on 08/18/17 as below. Patient denies previous pancreatitis , etc. despite ERCPs as below. Benign hepatic cysts and nodules by CT scan Genitourinary History: Reports: BPH, Prostate Disorder, Retention, Urinary, UTI , Recurrent, Other (See Below). Denies: Acute Renal Failure, Chronic Renal Insuffiency, Dialysis, Hydronephrosis, Renal Calculus, Urinary Incontinence Other Genitourinary History: Benign large right renal cyst by serial CT scans with last CT scan on 09/08/17 indicating a somewhat improved 8.5 cm complex Bosnick Type I right renal cyst with a small left renal cyst Musculoskeletal History: Reports: Arthritis, Back Pain, Chronic, Fracture, Neck Pain, Chronic, Osteoarthritis, RA, Other (See Below). Denies: Amputation, Gout , Osteoporosis, SLE Other Musculoskeletal History: Steroid dependent rheumatoid arthritis; nasal fracture, skull and left jaw fracture 1964 secondary to bull injury Neurological History: Reports: Concussion, Headaches, Chronic, Head Trauma, Other (See Below). Denies: Alzheimers Disease, Cerebral Aneurysms, CVA, Migraines, MS, Neuropathy, Diabetic, Neuropathy, Peripheral, Parkinson's, Seizure, TIA Other Neuro History: Previous history of chronic headaches likely secondary to distant head injury in 1964 as above but no problems currently with history of head concussion at that time. Psychiatric History: Reports: None. Denies: Abuse, Victim of, ADHD, Addiction, Anxiety, Depression, Psych Hospitalization(s), PTSD, Suicide Attempt, Suicidal Ideation Endocrine/Metabolic History: Reports: Hypothyroidism, Other (See Below). Denies : Diabetes, Type I, Diabetes, Type II, Diabetes Mellitus, Type 3c, IDDM, Osteopenia, Osteoporosis Other Endocrine/Metabolic History: Bilateral gynecomastia. Hypoalbuminemia. Hypomagnesemia Hematologic History: Reports: None. Denies: Anemia, Blood Transfusion(s), Iron Deficiency Immunologic History: Reports: Immunosuppression, Other (See Below). Denies: AIDS, HIV, SLE Other Immunologic History: Chronic steroid therapy as above Oncologic (Cancer) History: Reports: None, Other (See Below). Denies: Basal Cell Carcinoma, Colon, Hodgkin's Lymphoma, Leukemia, Lung, Lymphoma, Malignant Melanoma, Non-Hodgkin's Lymphoma, Prostate, Squamous Cell Carcinoma Other Oncologic History: The patient and his deny previous history of basal cell carcinoma despite previous medical records Dermatologic History: Reports: Seborrheic Dermatitis, Other (See Below). Denies : Chronic Cellulitis, Eczema, Psoriasis Other Dermatologic History: Seborrheic keratosis and additional removal of actinic keratosis from left temporal region on 12/19/14 - Infectious Disease History Infectious Disease History: Reports: Chicken Pox, Measles, Shingles. Denies: C- Difficile, Meningitis, Mononucleosis, MRSA, Mumps, Pertussis (Whooping Cough), Rheumatic Fever, Rubella, Scarlet Fever, TB, VRE - Past Surgical History Head Surgeries/Procedures: Reports: Other (See Below) Other Head Surgeries/Procedures: See HEENT HEENT Surgical History: Reports: Cataract Surgery, Naso-Sinus Surgery, Oral Surgery, Other (See Below). Denies: Adenoidectomy, Laser Surgery, LASIK, Myringotomy w Tube(s), Tonsillectomy Other HEENT Surgeries/Procedures: Nasal fracture repair and possible frontal sinus surgery secondary to injury in 1965 as above patient denying jaw surgery at this time. Bilateral cataract surgery in about 2011. Complete teeth extraction with complete dentures uppers and lowers Cardiovascular Surgical History: Reports: Coronary Artery Bypass, Vascular Surgery, Other (See Below). Denies: AAA Repair, Aneurysm, Cardiac Ablation, Carotid Stents, Coronary Artery Stent, Pacer, Percutaneous Transluminal Angioplasty, Varicose Other Cardiovascular Surgeries/Procedures: She denies previous PTCA/stent despite previous medical records. Three-vessel CABG in 1996 Respiratory Surgical History: Reports: None. Denies: Lung Biopsies, Thoracentesis GI Surgical History: Reports: Cholecystectomy, Colonoscopy, EGD, ERCP, Polypectomy, Other (See Below). Denies: Appendectomy, Hernia, Abdominal, Hernia , Inguinal, Hernia Repair/Other Other GI Surgeries/Procedures: Colonoscopy on 08/18/17 with multiple polypectomies as above with previous colonoscopy in about 2011. EGD on 01/06/04. Laparoscopic cholecystectomy in about 2003. Several previous ERCPs with last procedure in July 2003 and previous sphincterotomy in 2005 Male Surgical History: Reports: Circumcision, TUIP, Vasectomy, Other (See Below). Denies: TURP-Transurethral Resection of Prostate Other Male Surgeries/Procedures: TUIP in about November 2015 with postoperative PE as above. Circumcision on 04/15/10. Vasectomy in about 1979 Endocrine Surgical History: Reports: None. Denies: Thyroid Biopsy Neurological Surgical History: Reports: None. Denies: C-Spine, Discectomy, Laminectomy, Lumbar Spine, Sacral Spine, Spinal Fusion, Vertebroplasty Musculoskeletal Surgical History: Reports: None. Denies: Arthroscopic Procedure , Carpal Tunnel, Ganglion Cyst, Joint Replacement, ORIF, Shoulder Surgery Oncologic Surgical History: Reports: None Dermatological Surgical History: Reports: Skin Biopsy, Other (See Below) Other Dermatological Surgeries/Procedures: Removal of actinic keratosis as above - Past Imaging History Past Imaging History: Reports: Angiography (1996 at time of OR), Cardiac Echo ( Last echocardiogram at [facility] in [place] in August 2017 with results not available with previous echocardiogram on 02/15/17 with ejection fraction of 6565 percent with findings as above. Previous suboptimal echocardiogram on 01/02), Carotid US (12/12/13 with moderate left-sided disease as above.), CAT Scan (CTA of the chest with PE protocol on 09/08/17. Soft tissues CT scan of the neck on 05/25/16. CT scan of the C-spine and facial bones on 12/11/15. CT of the chest with contrast on 11/26/15 with right upper lobe PE at that time and negative findings at follow-up CT scan on 12/05/15. [address] scan of the chest on . CT of the chest with IV contrast and CT of the brain both on 11/28/13. CT of the abdomen and pelvis on 02/27/08.), Mammogram (02/07/09 with negative findings by patient and his ), MRA (Head on 08/22/17), MRI (Thoracic spine on 12/04/13), Stress Testing (Last Cardiolite stress test on 09/22/15 with ejection fraction of 66%. Low level cardiac stress test on 03/03/14. Cardiolite stress test on 04/06/12.), Ultrasound, Xray Social & Family History - Family History Family Medical History: Noncontributory HEENT: Reports: Macular Degeneration, Other (See Below). Denies: Glaucoma, Retinal Detachment Other HEENT Family History: Sister with macular degeneration Cardiac: Reports: Arrhythmia, Bypass, CAD, Hypertension, OR, Stent, Other (See Below). Denies: Afib, Aneurysm, Blood Clots/VTE/DVT, High Cholesterol, Pacemaker, PVD/COD, Syncope Other Cardiac Family History: Mother with initial OR in her 60s with 2 previous MIs and fatal CHF at age 97. Maternal uncles 4 with history of OR with one uncle dying from his OR in his 70s. One of these uncles did have his fatal OR in his 40s with another dying in his 60s. Brother with history of OR in his 60s with CABG at that time. CHF in mother as below with maternal uncles 2 also with fatal CHF in their 60s. Sister with PTCA/stent in her late 70s. Hypertension in mother and sister. Sister with unknown type of tachycardia Respiratory: Reports: Asthma, Other (See Below). Denies: COPD, PE, Sleep Apnea Other Respiratory Family Hisory: Mother with asthma GI: Reports: None. Denies: Celiac Disease, Cholelithiasis, Colon Polyps, GERD, GI bleed, Inflammatory Bowel Disease, Irritable Bowel Syndrome, PUD : Reports: None, Other (See Below). Denies: Renal Calculus, Renal Disease/ Insufficiency Other Family History: Mother with only one kidney possibly congenital versus atrophy OBGYN: Reports: None. Denies: Endometriosis, Recurrent Spontaneous Musculoskeletal: Reports: Arthritis, RA, Other (See Below). Denies: Gout, Osteoarthritis Other Musculoskeletal Family History: Paternal aunt with rheumatoid arthritis Neurological: Reports: None. Denies: Alzheimers Disease, Cerebral Aneurysms, CVA, Dementia, Migraines, MS, Parkinson's, Seizure, TIA Psychiatric: Reports: None. Denies: Abuse, Victim of, ADD, ADHD, Anxiety, Depression, Psych Hospitalization(s), PTSD, Suicide Attempt Endocrine/Metabolic: Reports: Diabetes, type II, IDDM, Other (See Below). Denies: Diabetes, Gestational, Diabetes, Type I, Diabetes Mellitus, Type 3c, Hypothyroidism Other Endocrine/Metabolic Family History: Paternal uncle with IDDM Hematologic: Reports: None. Denies: Anemia, Transfusion Reaction Immunologic: Reports: None. Denies: AIDS, HIV, SLE Dermatologic: Reports: None. Denies: Eczema, Psoriasis Oncologic: Reports: None. Denies: Colon, Esophageal, Hodgkin's Lymphoma, Leukemia, Non-Hodgkin's Lymphoma, Prostate, Skin - Tobacco Use Smoking Status *Q: Former Smoker Tobacco Use Within Last Twelve Months: No Years of Tobacco use: 28 Packs/Tins Daily: 1 (Smoked between ages 19 and 47 with average use of 12 packs per day) Used Tobacco, but Quit: Yes Month Tobacco Last Used: As above Smoking Cessation Information Provided To Patient: No Second Hand Smoke Exposure: No Second Hand Smoke Education Provided: No - Caffeine Use Caffeine Use: Reports: Coffee (6 Cups per day), Soda (Occasional Mountain Dew 1/ month). Denies: Energy Drinks, Tea - Alcohol Use Alcohol Use History: Yes Days Per Week of Alcohol Use: 0 (No previous DWIs, problems with alcohol abuse, etc.) Number of Drinks Per Day: 1 (Usually wine for holidays) Total Drinks Per Week: 0 Alcohol Use in Last Twelve Months: Yes Alcohol Use Frequency: Rarely - Recreational Drug Use Recreational Drug Use: No Drug Use in Last 12 Months: No Recreational Drug Type: Denies: Amphetamines (Speed), Cocaine, Heroin, Inhalants (Glues, Solvents, Aerosols), LSD (Acid), Marijuana/Hashish, Methamphetamine, Morphine, Oxycodone Recreational Drug Last Use: 6 cups of coffee per day, Mountain Dew 3-4 times per week - Living Situation & Occupation Living situation: Reports: (1955, 4 children), with Family () 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 ED EXAM, GENERAL - Physical Exam Exam: See Below Exam Limited By: No Limitations General Appearance: Alert, WD/WN, No Apparent Distress. No: Anxious Eye Exam: Bilateral Eye: EOMI, Normal Inspection (No nystagmus. Patient wearing glasses), PERRL Ears: Normal External Exam, Normal Canal, Hearing Loss (Bilateral hearing aide therapy with suboptimal effectiveness) Nose: Normal Inspection, Normal Mucosa, No Blood Throat/Mouth: Normal Lips, Normal Gums, Normal Oropharynx, Normal Voice, No Airway Compromise. No: Normal Teeth (Complete dentures uppers and lowers), Dysphagia, Inflammation, Perioral Cyanosis Head: Atraumatic, Normocephalic. No: Facial Swelling, Sinus Tenderness Neck: Supple, Non-Tender, Full Range of Motion, Carotid Bruit (Mild bilateral carotid bruits). No: Lymphadenopathy (L), Lymphadenopathy (R), Thyromegaly Respiratory/Chest: No Respiratory Distress, No Accessory Muscle Use, Chest Non- Tender, Rales (Mild bilateral basilar rales). No: Rhonchi, Wheezing, Pleural Rub, Retractions Cardiovascular: Normal Peripheral Pulses, No Edema, No Gallop, No JVD, No Murmur , No Rub, Tachycardia, Irregularly Irregular. No: Gallop/S3, Gallop/S4, Friction Rub Peripheral Pulses: 2+: Radial (L), Radial (R), Dorsalis Pedis (L), Dorsalis Pedis (R) GI/Abdominal: Normal Bowel Sounds, Soft, Non-Tender, No Organomegaly, No Distention, No Abnormal Bruit, No Mass, Pelvis Stable. No: Guarding (Male) Exam: Deferred Rectal (Males) Exam: Deferred Back Exam: Normal Inspection, Full Range of Motion. No: CVA Tenderness (L), CVA Tenderness (R), Muscle Spasm Extremities: Normal Inspection, Normal Range of Motion, Non-Tender, No Pedal Edema, Normal Capillary Refill. No: Vahe's Sign Neurological: Alert, Oriented, CN II-XII Intact, Normal Cognition, Normal Gait, Normal Reflexes (Negative Babinski's), No Motor/Sensory Deficits Psychiatric: Normal Affect, Normal Mood Skin Exam: Warm, Dry, Intact, Normal Color, No Rash. No: Diaphoretic, Ecchymosis, Petechiae, Wound/Incision Lymphatic: No Adenopathy EKG INTERPRETATION EKG Date: 09/20/17 Time: 17:20 Rhythm: A-Fib Rate (Beats/Min): 141 [place]: Normal (Neutral cardiac axis) P-Wave: Variable QRS: RBBB (QRS interval of 0.12 seconds representing a borderline complete right bundle branch block with T-wave inversions in leads V1 and V3) ST-T: Other (As above) QT: Normal RI/PQ Interval: Not applicable Comparison: Change From Previous EKG (Increased tachycardia today with persistent atrial fibrillation and previous heart rate of 121 with previous T- wave inversions in leads 3 and V1 and pulmonary hypertension noted by left- sided EKG. Note T-wave inversions in leads V2 through V6 with bifascicular bundle-branch block at time of right-sided EKG with both EKGs on 09/09/17.) EKG Interpretation Comments: 1. Atrial fibrillation with rapid ventricular response 2. Complete/complete right bundle branch block with history of bifascicular bundle-branch block 3. Questionable anterior wall cardiac ischemia Course - Vital Signs Last Recorded V/S: Last Vital Signs Temp 37.2 C 09/20/17 18:16 Pulse 91 09/20/17 18:16 Resp 23 H 09/20/17 18:16 BP 113/57 L 09/20/17 18:16 Pulse Ox 99 09/20/17 18:16 Vital Signs - 24 hr 09/20/17 09/20/17 09/20/17 16:57 17:15 17:30 Temperature [ 37.1 C Oral] Pulse, Peripheral Pulse, 155 H 145 H 145 H Peripheral [ Right Pulse Oximetry] Respiratory 17 17 17 Rate Blood Pressure Blood Pressure 137/104 H [Left Upper Arm ] O2 Sat by Pulse 99 98 98 Oximetry 09/20/17 09/20/17 09/20/17 17:31 17:34 17:46 Temperature [ Oral] Pulse, 103 H Peripheral Pulse, 108 H 94 Peripheral [ Right Pulse Oximetry] Respiratory 18 21 H Rate Blood Pressure 111/48 L Blood Pressure 155/76 H 111/48 L 142/69 H [Left Upper Arm ] O2 Sat by Pulse 98 99 Oximetry 09/20/17 09/20/17 18:01 18:16 Temperature [ 37.2 C Oral] Pulse, Peripheral Pulse, 89 91 Peripheral [ Right Pulse Oximetry] Respiratory 21 H 23 H Rate Blood Pressure Blood Pressure 130/69 113/57 L [Left Upper Arm ] O2 Sat by Pulse 99 99 Oximetry - Orders/Labs/Meds Orders: Active Orders 24 hr Category Date Time Status Cardiac Monitoring [RC] . DIRECTED Care 09/20/17 17:05 Active EKG Documentation Completion [RC] ASDIRECTED Care 09/20/17 17:05 Active Oxygen Therapy, ED [RC] PRN Care 09/20/17 17:05 Active Peripheral IV Care [RC] . DIRECTED Care 09/20/17 17:05 Active Pulse Oximetry [RC] CONTINUOUS Care 09/20/17 17:05 Active Up With Assistance [RC] PFP Care 09/20/17 17:05 Active Vital Signs [RC] PFP Care 09/20/17 17:05 Active Nothing per Oral Now Diet [DIET] Diet 09/20/17 Breakfast Active Chest 1V Frontal [CR] Stat Exams 09/20/17 17:05 Taken Diltiazem [Cardizem CD] Med 09/20/17 17:45 Active 180 mg PO QPM Metoprolol Tartrate [Lopressor] Med 09/20/17 17:43 Active 50 mg PO BID Sodium Chloride 0.9% [Saline Flush] Med 09/20/17 17:05 Active 10 ml FLUSH ASDIRECTED PRN Obtain Past Medical Record [OM.PC] Urgent Oth 09/20/17 17:05 Active Peripheral IV Insertion Adult [OM.PC] Stat Oth 09/20/17 17:05 Ordered Resuscitation Status Stat Resus Stat 09/20/17 17:05 Ordered Medication Orders Diltiazem HCl (Cardizem Cd) 180 mg PO QPM BRIGID Last Admin: 09/20/17 17:46 Dose: 180 mg Metoprolol Tartrate (Lopressor) 50 mg PO BID [facility] Last Admin: 09/20/17 17:46 Dose: 50 mg Sodium Chloride (Saline Flush) 10 ml FLUSH ASDIRECTED PRN PRN Reason: Keep Vein Open Last Admin: 09/20/17 17:39 Dose: 10 ml Admin: 09/20/17 17:20 Dose: 10 ml Labs: Laboratory Tests 09/20/17 09/20/17 09/20/17 Range/Units 17:15 17:15 17:15 WBC 7.9 (4.0-10.2) K/uL RBC 3.91 L (4.33-5.41) M/uL Hgb 12.5 L (13.1-16.8) g/dL Hct 37.1 L (39.0-49.0) % MCV 94.9 (84.0-98.0) fL MCH 32.0 (28.2-33.3) pg MCHC 33.7 (31.7-36.0) g/dL RDW 12.5 (11.2-14.1) % Plt Count 271 D (150-350) K/uL Neut % (Auto) 67.8 (45.0-80.0) % Lymph % (Auto) 20.3 (10.0-50.0) % Camp % (Auto) 10.7 (2.0-14.0) % Eos % (Auto) 0.9 (0.0-5.0) % Baso % (Auto) 0.3 (0.0-2.0) % Neut # (Auto) 5.39 (1.40-7.00) K/uL Lymph # (Auto) 1.61 (0.50-3.50) K/uL Camp # (Auto) 0.85 (0.00-1.00) K/uL Eos # (Auto) 0.07 (0.00-0.50) K/uL Baso # (Auto) 0.02 (0.00-0.20) K/uL PT 10.7 (9.8-11.7) SEC INR 1.0 APTT 27.3 (22.1-29.8) SEC D-Dimer, Quantitative 1370 H (0-400) ng/mL Sodium (136-145) mmol/L Potassium (3.5-5.1) mmol/L Chloride (98-107) mmol/L Carbon Dioxide (21.0-32.0) mmol/L BUN (7-18) mg/dL Creatinine (0.51-1.17) mg/dL Est Cr Clr Drug Dosing Estimated GFR (MDRD) mL/min Glucose (74-106) mg/dL Lactic Acid (0.4-2.0) mmol/L Uric Acid (2.6-7.2) mg/dL Calcium (8.5-10.1) mg/dL Magnesium (1.8-2.4) mg/dL Total Bilirubin (0.2-1.0) mg/dL AST (15-37) U/L ALT (12-78) U/L Alkaline Phosphatase (46-116) IU/L Creatine Kinase (26-308) U/L Creatine Kinase Index (0.0-2.5) % CK-MB (CK-2) (0.00-3.60) ng/mL Troponin I (0.000-0.056) ng/mL NT-Pro-B Natriuret Pep (0-125) pg/mL Total Protein (6.4-8.2) g/dL Albumin (3.4-5.0) g/dL 09/20/17 09/20/17 Range/Units 17:15 17:15 WBC (4.0-10.2) K/uL RBC (4.33-5.41) M/uL Hgb (13.1-16.8) g/dL Hct (39.0-49.0) % MCV (84.0-98.0) fL MCH (28.2-33.3) pg MCHC (31.7-36.0) g/dL RDW (11.2-14.1) % Plt Count (150-350) K/uL Neut % (Auto) (45.0-80.0) % Lymph % (Auto) (10.0-50.0) % Camp % (Auto) (2.0-14.0) % Eos % (Auto) (0.0-5.0) % Baso % (Auto) (0.0-2.0) % Neut # (Auto) (1.40-7.00) K/uL Lymph # (Auto) (0.50-3.50) K/uL Camp # (Auto) (0.00-1.00) K/uL Eos # (Auto) (0.00-0.50) K/uL Baso # (Auto) (0.00-0.20) K/uL PT (9.8-11.7) SEC INR APTT (22.1-29.8) SEC D-Dimer, Quantitative (0-400) ng/mL Sodium 136 (136-145) mmol/L Potassium 4.4 (3.5-5.1) mmol/L Chloride 100 (98-107) mmol/L Carbon Dioxide 27.5 (21.0-32.0) mmol/L BUN 17 (7-18) mg/dL Creatinine 0.96 (0.51-1.17) mg/dL Est Cr Clr Drug Dosing TNP Estimated GFR (MDRD) > 60 mL/min Glucose 151 H (74-106) mg/dL Lactic Acid 1.1 (0.4-2.0) mmol/L Uric Acid 2.8 (2.6-7.2) mg/dL Calcium 8.9 (8.5-10.1) mg/dL Magnesium 1.7 L (1.8-2.4) mg/dL Total Bilirubin 0.3 (0.2-1.0) mg/dL AST 14 L (15-37) U/L ALT 13 (12-78) U/L Alkaline Phosphatase 69 (46-116) IU/L Creatine Kinase 36 (26-308) U/L Creatine Kinase Index 1.9 (0.0-2.5) % CK-MB (CK-2) 0.70 (0.00-3.60) ng/mL Troponin I 0.000 (0.000-0.056) ng/mL NT-Pro-B Natriuret Pep 833 H (0-125) pg/mL Total Protein 7.4 (6.4-8.2) g/dL Albumin 3.3 L (3.4-5.0) g/dL Meds: Medications Generic Name Dose Route Start Last Admin Trade Name Freq PRN Reason Stop Dose Admin Diltiazem HCl 180 mg 09/20/17 17:45 09/20/17 17:46 Cardizem Cd PO 180 mg QPM BRIGID Administration Metoprolol Tartrate 50 mg 09/20/17 17:43 09/20/17 17:46 Lopressor PO 50 mg BID BRIGID Administration Sodium Chloride 10 ml 09/20/17 17:05 09/20/17 17:39 Saline Flush FLUSH 10 ml ASDIRECTED PRN Administration Keep Vein Open Discontinued Medications Generic Name Dose Route Start Last Admin Trade Name Freq PRN Reason Stop Dose Admin Diltiazem HCl 20 mg 09/20/17 17:07 09/20/17 17:14 Diltiazem IVPUSH 09/20/17 17:08 20 mg ONETIME ONE Administration Diltiazem HCl 25 mg 09/20/17 17:24 09/20/17 17:33 Diltiazem IVPUSH 09/20/17 17:25 25 mg ONETIME ONE Administration Famotidine 40 mg 09/20/17 17:05 09/20/17 17:20 Pepcid IVPUSH 09/20/17 17:06 40 mg ONETIME ONE Administration - Radiology Interpretation Free Text/Narrative:: 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 Chest x-ray, portable, shows evidence of moderate to severe COPD changes with probable pulmonary hypertension and/or mild centralized CHF with borderline cardiomegaly. No significant pulmonary infiltrates, pneumothorax, etc. Note status post medial sternotomy with somewhat prominent proximal aortic arch without definite aneurysm Departure - Departure Time of Disposition: 18:45 Disposition: Admitted As Inpatient 68 Condition: Good Clinical Impression: Coronary artery disease, Atrial fibrillation with rapid ventricular response, Hypomagnesemia, CHF (congestive heart failure), Rheumatoid arteritis, Hyperglycemia, Pulmonary embolus, Gastroesophageal reflux disease, HTN, Benign hypertension, COPD (chronic obstructive pulmonary disease), Hypoalbuminemia, Anemia Referrals: Abram Dsouza MD [Primary Care Provider] - Forms: ED Department Discharge Care Plan Goals: See plan. - Problem List & Annotations (1) Atrial fibrillation with rapid ventricular response SNOMED Code(s): 792317827903677 Code(s): I48.91 - UNSPECIFIED ATRIAL FIBRILLATION Status: Acute Priority : High Annotation/Comment:: Symptoms somewhat refractory to therapy, however good response to medical therapy as above at time of admission. No indication for IV diltiazem drip at this time with increase of patient's previous beta jenn therapy and initiation of oral diltiazem prior to admission. Note that diltiazem does interact with patient's current Eliquis and Zocor therapy with Zocor to be decreased at admission recent normal lipid panel on 09/08/17. Cardiology consultation depending on his clinical course, including possible indication for EP studies. Patient may also benefit from Betapace therapy, if his arrhythmia persists (2) CHF (congestive heart failure) SNOMED Code(s): 35208228 Code(s): I50.9 - HEART FAILURE, UNSPECIFIED Status: Acute Priority: High Onset Date: 09/08/17 Annotation/Comment:: Reinitiation of low-dose IV Lasix therapy with caution with previous problems of borderline hypotension during recent hospitalization. Note recent Echocardiogram [facility] both weeks ago as above with results not available. Note improvement of patient's BNP elevation since time of recent hospital discharge from this facility on 09/09 Qualifiers: Heart failure type: combined systolic and diastolic Heart failure chronicity: acute on chronic Qualified Code(s): I50.43 - Acute on chronic combined systolic (congestive) and diastolic (congestive) heart failure (3) Coronary artery disease SNOMED Code(s): 60219848 Code(s): I25.10 - ATHSCL HEART DISEASE OF [place] CORONARY ARTERY W/O ANG PCTRS Status: Chronic Priority: Medium Annotation/Comment:: No recent chest pain or true anginal type symptoms with EKG and blood work to be repeated in the a.m. Chest pain protocol was not initiated in the emergency room on patient's arrival secondary to absence of the symptoms. Qualifiers: Coronary Disease-Associated Artery/Lesion type: bypass graft [place] vs. transplanted heart: [place] heart Associated angina: with stable angina Qualified Code(s): I25.708 - Atherosclerosis of coronary artery bypass graft(s) , unspecified, with other forms of angina pectoris (4) Pulmonary embolus SNOMED Code(s): 49292595 Code(s): I26.99 - OTHER PULMONARY EMBOLISM WITHOUT ACUTE COR PULMONALE Status: Acute Priority: High Onset Date: 09/08/17 Annotation/Comment:: Recurrent PEs as above. Continue Eliquis at loading dose for recent PE for now. No additional subcutaneous Lovenox therapy indicated. Continue to observe closely secondary to somewhat increased d-dimer from time of recent hospitalization with repeat CTA of the chest depending on his clinical course. Venous Doppler studies of the lower extremities to be conducted in the a.m. secondary to progressive d-dimer elevation Qualifiers: Pulmonary embolism type: other Chronicity: acute Acute cor pulmonale presence: without acute cor pulmonale Qualified Code(s): I26.99 - Other pulmonary embolism without acute cor pulmonale (5) HTN, Benign hypertension SNOMED Code(s): 68217516 Code(s): I10 - ESSENTIAL (PRIMARY) HYPERTENSION Status: Chronic Priority : Medium Annotation/Comment:: Blood Pressures somewhat elevated initially in the emergency room, however significantly improved with aggressive medical therapy for his cardiac arrhythmia as above. JERMAN inhibitor therapy was apparently discontinued by his junior engineer at time of recent hospitalization in [facility] last month as above. Continue to observe closely with consideration of reinitiation of JERMAN inhibitor therapy depending on his clinical course especially in light of his CHF (6) Hypomagnesemia SNOMED Code(s): 780219685 Code(s): E83.42 - HYPOMAGNESEMIA Status: Acute Priority: Medium Onset Date: 09/08/17 Annotation/Comment:: Patient did receive IV magnesium during previous hospitalization with initiation of high-dose magnesium oxide orally with recommendation that patient be discharged with low-dose magnesium oxide with close follow-up by his regular providers. (7) Rheumatoid arteritis SNOMED Code(s): 757917216 Code(s): I00 - RHEUMATIC FEVER WITHOUT HEART INVOLVEMENT Status: Chronic Priority: Medium Annotation/Comment:: Steroid-dependent rheumatoid arthritis. Stable by history (8) Hyperglycemia SNOMED Code(s): 33430389 Code(s): R73.9 - HYPERGLYCEMIA, UNSPECIFIED Status: Acute Priority: Medium Onset Date: 09/08/17 Annotation/Comment:: No previous history of diabetes mellitus. Glycosylated hemoglobin on 09/09 was normal (9) Hyperlipidemia SNOMED Code(s): 91905444 Code(s): E78.5 - HYPERLIPIDEMIA, UNSPECIFIED Status: Chronic Priority: Medium Annotation/Comment:: As above Qualifiers: Hyperlipidemia type: unspecified Qualified Code(s): E78.5 - Hyperlipidemia , unspecified (10) Gastroesophageal reflux disease SNOMED Code(s): 611214393 Code(s): K21.9 - GASTRO-ESOPHAGEAL REFLUX DISEASE WITHOUT ESOPHAGITIS Status: Chronic Priority: Medium Annotation/Comment:: High-dose IV Pepcid given as GI prophylaxis. No recent abdominal complaints or history of GI bleed. Note previous history of diverticulitis and mild to lower GI bleed in July with no evidence of persistent bleeding by follow-up colonoscopy as above. Qualifiers: Esophagitis presence: without esophagitis Qualified Code(s): K21.9 - Gastro -esophageal reflux disease without esophagitis (11) Anemia SNOMED Code(s): 461408852 Code(s): D64.9 - ANEMIA, UNSPECIFIED Status: Acute Priority: Medium Onset Date: 09/20/17 Annotation/Comment:: Mild borderline anemia from recent hospitalization. Repeat blood work in the a.m. Qualifiers: Anemia type: unspecified type Qualified Code(s): D64.9 - Anemia, unspecified (12) COPD (chronic obstructive pulmonary disease) SNOMED Code(s): 48145593 Code(s): J44.9 - CHRONIC OBSTRUCTIVE PULMONARY DISEASE, UNSPECIFIED Status : Chronic Priority: Medium Annotation/Comment:: Stable by patient history with no recent fever or bronchitic type symptoms Qualifiers: COPD type: emphysema Emphysema type: panlobular Qualified Code(s): J43.1 - Panlobular emphysema (13) Hypoalbuminemia SNOMED Code(s): 779786104 Code(s): E88.09 - [facility] DISORDERS OF PLASMA-PROTEIN METABOLISM, NEC Status: Chronic Priority: Medium Annotation/Comment:: Initiate high-protein Glucerna supplements twice a day as snacks - Problem List Review Problem List Initiated/Reviewed/Updated: Yes - My Orders Last 24 Hours: My Active Orders 09/20/17 17:05 Cardiac Monitoring [RC] . DIRECTED EKG Documentation Completion [RC] ASDIRECTED Oxygen Therapy, ED [RC] PRN Peripheral IV Care [RC] . DIRECTED Pulse Oximetry [RC] CONTINUOUS Up With Assistance [RC] PFP Vital Signs [RC] PFP Chest 1V Frontal [CR] Stat Sodium Chloride 0.9% [Saline Flush] 10 ml FLUSH ASDIRECTED PRN Obtain Past Medical Record [OM.PC] Urgent Peripheral IV Insertion Adult [OM.PC] Stat Resuscitation Status Stat 09/20/17 17:43 Metoprolol Tartrate [Lopressor] 50 mg PO BID 09/20/17 17:45 Diltiazem [Cardizem CD] 180 mg PO QPM 09/20/17 Breakfast Nothing per Oral Now Diet [DIET] - Assessment/Plan Admission H&P: Please use this note as an admission H&P Last 24 Hours: My Active Orders 09/20/17 17:05 Cardiac Monitoring [RC] . DIRECTED EKG Documentation Completion [RC] ASDIRECTED Oxygen Therapy, ED [RC] PRN Peripheral IV Care [RC] . DIRECTED Pulse Oximetry [RC] CONTINUOUS Up With Assistance [RC] PFP Vital Signs [RC] PFP Chest 1V Frontal [CR] Stat Sodium Chloride 0.9% [Saline Flush] 10 ml FLUSH ASDIRECTED PRN Obtain Past Medical Record [OM.PC] Urgent Peripheral IV Insertion Adult [OM.PC] Stat Resuscitation Status Stat 09/20/17 17:43 Metoprolol Tartrate [Lopressor] 50 mg PO BID 09/20/17 17:45 Diltiazem [Cardizem CD] 180 mg PO QPM 09/20/17 Breakfast Nothing per Oral Now Diet [DIET] Assessment:: As above. Plan: As above. Extensive precautions were given to the patient and his , who are in agreement with the treatment plan. Abram Dsouza M.D. at the [facility] since care in the a.m. The patient will require about 3-4 days of inpatient/acute care secondary to multiple health problems as above.
[2017-09-20] MEDS ORDERED: Diltiazem 25 MG/5 ML SDV IVPUSH ONE ×2 (17:07→17:24)
[2017-09-20] MEDS: Sodium Chloride 0.9% 10 ML Syringe FLUSH PRN ×2 (17:20→17:39)
[2017-09-20 17:43] LABS: CHLORIDE,CL 100 mmol/L (98-107); SODIUM,NA 136 mmol/L (136-145)
[2017-09-20] MEDS: Diltiazem 180 MG Cap.CD PO SCH ×2 (17:46→19:52)
[2017-09-20] MEDS: Metoprolol Tartrate 50 MG Tab PO SCH ×2 (17:46→19:52)
[2017-09-20] MEDS ORDERED: Acetaminophen 325 MG Tab PO PRN (19:04)
[2017-09-20] MEDS ORDERED: Sodium Chloride 0.9% 10 ML Syringe FLUSH PRN (19:04)
[2017-09-20] MEDS: sulfaSALAzine 500 MG Tab PO SCH (21:20)
[2017-09-20] MEDS: Tamsulosin 0.4 MG Cap.ER PO SCH (21:20)
[2017-09-20] MEDS: Magnesium Oxide 400 MG Tab PO SCH (21:21)
[2017-09-20] MEDS: Folic Acid 1 MG Tab PO SCH (21:21)
[2017-09-20] MEDS: Finasteride 5 MG Tab PO SCH (21:21)
[2017-09-20] MEDS: Simvastatin 10 MG Tab PO SCH (21:21)
[2017-09-20] MEDS: Apixaban 5 MG Tab PO SCH (21:22)
[2017-09-20] MEDS: Temazepam 15 MG Cap PO PRN (23:59)
[2017-09-21] MEDS: Temazepam 15 MG Cap PO PRN (00:01)
[2017-09-21 07:29] LABS: CHLORIDE,CL 104 mmol/L (98-107); SODIUM,NA 141 mmol/L (136-145)
[2017-09-21] MEDS ORDERED: Non-Formulary Medication 1 Each (Ursodiol [Ursodiol] 500 MG) PO SCH (08:00)
[2017-09-21] MEDS ORDERED: sulfaSALAzine 500 MG Tab PO SCH (08:00)
[2017-09-21] MEDS: Metoprolol Tartrate 50 MG Tab PO SCH ×3 (08:00→17:51)
[2017-09-21] MEDS: Furosemide 20 MG/2 ML VIAL IVPUSH SCH ×2 (08:00→08:45)
[2017-09-21] MEDS: Apixaban 5 MG Tab PO SCH ×2 (08:44→17:51)
[2017-09-21] MEDS: Magnesium Oxide 400 MG Tab PO SCH ×2 (08:45→17:53)
[2017-09-21] MEDS: Omeprazole 20 MG Cap.CR PO SCH (08:45)
[2017-09-21] MEDS: Aspirin 81 MG Tab.Chew PO SCH (08:45)
[2017-09-21] MEDS: Potassium Chloride 20 MEQ Tab.ER PO SCH (08:45)
[2017-09-21] MEDS: Levothyroxine 50 MCG Tab PO SCH (08:45)
[2017-09-21] MEDS: sulfaSALAzine 500 MG Tab PO SCH ×2 (08:45→17:52)
[2017-09-21] MEDS: predniSONE 5 MG Tab PO SCH (08:45)
[2017-09-21] MEDS: URSODIOL 500 MG PO SCH ×3 (10:46→19:30)
--- NOTE | 2017-09-21 14:44 | PCM.PN ---
- General Info Date of Service: 09/21/17 Functional Status: Reports: Ambulating - Review of Systems General: Reports: No Symptoms HEENT: Reports: No Symptoms Pulmonary: Reports: No Symptoms Cardiovascular: Reports: Palpitations Gastrointestinal: Reports: No Symptoms Genitourinary: Reports: No Symptoms Musculoskeletal: Reports: No Symptoms Skin: Reports: No Symptoms Neurological: Reports: No Symptoms - Patient Data Vitals - Most Recent: Last Vital Signs Temp 98.2 F 09/21/17 12:00 Pulse 67 09/21/17 12:00 Resp 16 09/21/17 12:00 BP 104/60 09/21/17 12:00 Pulse Ox 95 09/21/17 12:00 Weight - Most Recent: 180 lb 6.398 oz I&O - Last 24 Hours: Intake & Output 09/20/17 09/21/17 09/21/17 22:59 06:59 14:59 Intake Total 180 150 Output Total 175 250 Balance 5 -100 Imaging Impressions - Last 24 Hours: DVT ruled out venous Doppler negative for DVT Lab Results Last 24 Hours: Laboratory Results - last 24 hr 09/21/17 09/21/17 09/21/17 Range/Units 06:33 06:33 06:33 WBC 5.2 (4.0-10.2) K/uL RBC 3.46 L (4.33-5.41) M/uL Hgb 11.0 L D (13.1-16.8) g/dL Hct 33.3 L (39.0-49.0) % MCV 96.2 (84.0-98.0) fL MCH 31.8 (28.2-33.3) pg MCHC 33.0 (31.7-36.0) g/dL RDW 12.7 (11.2-14.1) % Plt Count 254 (150-350) K/uL Neut % (Auto) 60.0 (45.0-80.0) % Lymph % (Auto) 23.5 (10.0-50.0) % [place] % (Auto) 14.2 H (2.0-14.0) % Eos % (Auto) 1.9 (0.0-5.0) % Baso % (Auto) 0.4 (0.0-2.0) % Neut # (Auto) 3.12 (1.40-7.00) K/uL Lymph # (Auto) 1.22 (0.50-3.50) K/uL [place] # (Auto) 0.74 (0.00-1.00) K/uL Eos # (Auto) 0.10 (0.00-0.50) K/uL Baso # (Auto) 0.02 (0.00-0.20) K/uL D-Dimer, Quantitative 1620 H (0-400) ng/mL Sodium 141 (136-145) mmol/L Potassium 4.0 (3.5-5.1) mmol/L Chloride 104 (98-107) mmol/L Carbon Dioxide 29.1 (21.0-32.0) mmol/L BUN 18 (7-18) mg/dL Creatinine 1.02 (0.51-1.17) mg/dL Est Cr Clr Drug Dosing 59.64 mL/min Estimated GFR (MDRD) > 60 mL/min Glucose 106 (74-106) mg/dL Calcium 8.4 L (8.5-10.1) mg/dL Total Bilirubin 0.3 (0.2-1.0) mg/dL AST 10 L (15-37) U/L ALT 9 L (12-78) U/L Alkaline Phosphatase 51 (46-116) IU/L Creatine Kinase 25 L (26-308) U/L Creatine Kinase Index 2.4 (0.0-2.5) % CK-MB (CK-2) 0.60 (0.00-3.60) ng/mL Troponin I 0.006 (0.000-0.056) ng/mL NT-Pro-B Natriuret Pep 2410 H (0-125) pg/mL Total Protein 6.0 L (6.4-8.2) g/dL Albumin 2.6 L (3.4-5.0) g/dL Med Orders - Current: Current Medications Acetaminophen (Tylenol) 650 mg PO Q4H PRN PRN Reason: Pain Apixaban (Eliquis) 5 mg PO BID [facility] Last Admin: 09/21/17 08:44 Dose: 5 mg Aspirin (Aspirin) 81 mg PO DAILY [facility] Last Admin: 09/21/17 08:45 Dose: 81 mg Diltiazem HCl (Cardizem Cd) 180 mg PO QPM [facility] Last Admin: 09/20/17 19:52 Dose: Not Given Finasteride (Proscar) 5 mg PO BEDTIME [facility] Last Admin: 09/20/17 21:21 Dose: 5 mg Folic Acid (Folic Acid) 1 mg PO BEDTIME [facility] Last Admin: 09/20/17 21:21 Dose: 1 mg Furosemide (Lasix) 20 mg IVPUSH QAM [facility] Last Admin: 09/21/17 08:00 Dose: Not Given Levothyroxine Sodium (Synthroid) 50 mcg PO ACBREAKFAST [facility] Last Admin: 09/21/17 08:45 Dose: 50 mcg Magnesium Oxide (Magnesium Oxide) 400 mg PO BID [facility] Last Admin: 09/21/17 08:45 Dose: 400 mg Metoprolol Tartrate (Lopressor) 50 mg PO BID [facility] Last Admin: 09/21/17 08:00 Dose: Not Given Ursodiol 500mg (Tablets) 500 mg PO TID@0800,1200,2000 [facility] Last Admin: 09/21/17 14:18 Dose: 500 mg Omeprazole (Omeprazole) 20 mg PO DAILY [facility] Last Admin: 09/21/17 08:45 Dose: 20 mg Potassium Chloride (Klor-Con M20) 20 meq PO DAILY [facility] Last Admin: 09/21/17 08:45 Dose: 20 meq Prednisone (Prednisone) 5 mg PO DAILY [facility] Last Admin: 09/21/17 08:45 Dose: 5 mg Simvastatin (Zocor) 10 mg PO BEDTIME [facility] Last Admin: 09/20/17 21:21 Dose: 10 mg Sodium Chloride (Saline Flush) 10 ml FLUSH ASDIRECTED PRN PRN Reason: Keep Vein Open Last Admin: 09/20/17 17:39 Dose: 10 ml Sodium Chloride (Saline Flush) 10 ml FLUSH Q12HR PRN PRN Reason: Keep Vein Open Sulfasalazine (Sulfasalazine) 1,000 mg PO BID [facility] Last Admin: 09/21/17 08:45 Dose: 1,000 mg Tamsulosin HCl (Flomax) 0.4 mg PO BEDTIME [facility] Last Admin: 09/20/17 21:20 Dose: 0.4 mg Temazepam (Restoril) 15 mg PO BEDTIME PRN PRN Reason: Insomnia Last Admin: 09/21/17 00:01 Dose: 15 mg Discontinued Medications Diltiazem HCl (Diltiazem) 20 mg IVPUSH ONETIME ONE Stop: 09/20/17 17:08 Last Admin: 09/20/17 17:14 Dose: 20 mg Diltiazem HCl (Diltiazem) 25 mg IVPUSH ONETIME ONE Stop: 09/20/17 17:25 Last Admin: 09/20/17 17:33 Dose: 25 mg Famotidine (Pepcid) 40 mg IVPUSH ONETIME ONE Stop: 09/20/17 17:06 Last Admin: 09/20/17 17:20 Dose: 40 mg Non-Formulary Medication (Ursodiol [Ursodiol]) 500 mg PO TID BRIGID Sulfasalazine (Sulfasalazine) 1,000 mg PO BID BRIGID - Exam General: Alert, Oriented HEENT: Pupils Equal, Pupils Reactive, EOMI, Mucous Membr. Moist/[place] Neck: Supple Lungs: Clear to Auscultation, Normal Respiratory Effort Cardiovascular: Regular Rate, Regular Rhythm, Other (Just admitted with SVT doing well feels wonderful no complaints) GI/Abdominal Exam: Normal Bowel Sounds, Soft, Non-Tender, No Organomegaly, No Distention, No Abnormal Bruit, No Mass, Pelvis Stable (Male) Exam: No Hernia, Normal Inspection, Normal Prostate, Circumcised Back Exam: Normal Inspection, Full Range of Motion Extremities: Normal Inspection, Normal Range of Motion, Non-Tender, No Pedal Edema, Normal Capillary Refill Skin: Warm, Dry, Intact Wound/Incisions: Healing Well Neurological: No New Focal Deficit Psy/Mental Status: Alert, Normal Affect, Normal Mood - Problem List & Annotations (1) Atrial fibrillation with rapid ventricular response SNOMED Code(s): 733446305141053 Code(s): I48.91 - UNSPECIFIED ATRIAL FIBRILLATION Status: Acute Priority : High Current Visit: Yes Annotation/Comment:: At this time I agree with Dr. Marinelli will keep him overnight observation I will attempt to get an appointment farm marketer for evaluation and possible treatment if indicated - Problem List Review Problem List Initiated/Reviewed/Updated: Yes
[2017-09-21] MEDS: Diltiazem 180 MG Cap.CD PO SCH (17:51)
[2017-09-21] MEDS: Finasteride 5 MG Tab PO SCH (19:29)
[2017-09-21] MEDS: Folic Acid 1 MG Tab PO SCH (19:29)
[2017-09-21] MEDS: Simvastatin 10 MG Tab PO SCH (19:30)
[2017-09-21] MEDS: Tamsulosin 0.4 MG Cap.ER PO SCH (19:30)
[2017-09-22] MEDS: Apixaban 5 MG Tab PO SCH (08:29)
[2017-09-22] MEDS: Levothyroxine 50 MCG Tab PO SCH (08:29)
[2017-09-22] MEDS: Potassium Chloride 20 MEQ Tab.ER PO SCH (08:29)
[2017-09-22] MEDS: Aspirin 81 MG Tab.Chew PO SCH (08:29)
[2017-09-22] MEDS: Furosemide 20 MG/2 ML VIAL IVPUSH SCH (08:30)
[2017-09-22] MEDS: Omeprazole 20 MG Cap.CR PO SCH (08:30)
[2017-09-22] MEDS: sulfaSALAzine 500 MG Tab PO SCH (08:30)
[2017-09-22] MEDS: predniSONE 5 MG Tab PO SCH (08:30)
[2017-09-22] MEDS: Metoprolol Tartrate 50 MG Tab PO SCH (08:30)
[2017-09-22] MEDS: Magnesium Oxide 400 MG Tab PO SCH (08:30)
[2017-09-22] MEDS: URSODIOL 500 MG PO SCH (08:31)
[2017-09-22 08:32] VITALS: BP 121/59
--- NOTE | 2017-09-22 10:03 | PCM.PN ---
- General Info Date of Service: 09/22/17 Functional Status: Reports: Tolerating Diet, Ambulating - Review of Systems General: Reports: No Symptoms HEENT: Reports: No Symptoms Pulmonary: Reports: No Symptoms Cardiovascular: Reports: No Symptoms Gastrointestinal: Reports: No Symptoms Musculoskeletal: Reports: No Symptoms Skin: Reports: No Symptoms Neurological: Reports: No Symptoms Psychiatric: Reports: No Symptoms - Patient Data Vitals - Most Recent: Last Vital Signs Temp 99.0 F 09/22/17 04:00 Pulse 67 09/22/17 08:30 Resp 16 09/22/17 04:00 BP 121/59 L 09/22/17 08:30 Pulse Ox 97 09/22/17 04:00 Weight - Most Recent: 180 lb 6.398 oz I&O - Last 24 Hours: Intake & Output 09/21/17 09/22/17 09/22/17 22:59 06:59 14:59 Intake Total 600 240 Balance 600 240 Alexis Results Last 24 Hours: Microbiology 09/21/17 19:30 Stool Occult Blood (ALEXIS) - Final Stool / Feces NEGATIVE OCCULT BLOOD Med Orders - Current: Current Medications Acetaminophen (Tylenol) 650 mg PO Q4H PRN PRN Reason: Pain Apixaban (Eliquis) 5 mg PO BID [facility] Last Admin: 09/22/17 08:29 Dose: 5 mg Aspirin (Aspirin) 81 mg PO DAILY [facility] Last Admin: 09/22/17 08:29 Dose: 81 mg Diltiazem HCl (Cardizem Cd) 180 mg PO QPM [facility] Last Admin: 09/21/17 17:51 Dose: 180 mg Finasteride (Proscar) 5 mg PO BEDTIME [facility] Last Admin: 09/21/17 19:29 Dose: 5 mg Folic Acid (Folic Acid) 1 mg PO BEDTIME [facility] Last Admin: 09/21/17 19:29 Dose: 1 mg Furosemide (Lasix) 20 mg IVPUSH QAM [facility] Last Admin: 09/22/17 08:30 Dose: 20 mg Levothyroxine Sodium (Synthroid) 50 mcg PO ACBREAKFAST [facility] Last Admin: 09/22/17 08:29 Dose: 50 mcg Magnesium Oxide (Magnesium Oxide) 400 mg PO BID [facility] Last Admin: 09/22/17 08:30 Dose: 400 mg Metoprolol Tartrate (Lopressor) 50 mg PO BID [facility] Last Admin: 09/22/17 08:30 Dose: 50 mg Ursodiol 500mg (Tablets) 500 mg PO TID@0800,1200,2000 [facility] Last Admin: 09/22/17 08:31 Dose: 500 mg Omeprazole (Omeprazole) 20 mg PO DAILY [facility] Last Admin: 09/22/17 08:30 Dose: 20 mg Potassium Chloride (Klor-Con M20) 20 meq PO DAILY [facility] Last Admin: 09/22/17 08:29 Dose: 20 meq Prednisone (Prednisone) 5 mg PO DAILY [facility] Last Admin: 09/22/17 08:30 Dose: 5 mg Simvastatin (Zocor) 10 mg PO BEDTIME [facility] Last Admin: 09/21/17 19:30 Dose: 10 mg Sodium Chloride (Saline Flush) 10 ml FLUSH ASDIRECTED PRN PRN Reason: Keep Vein Open Last Admin: 09/20/17 17:39 Dose: 10 ml Sodium Chloride (Saline Flush) 10 ml FLUSH Q12HR PRN PRN Reason: Keep Vein Open Sulfasalazine (Sulfasalazine) 1,000 mg PO BID [facility] Last Admin: 09/22/17 08:30 Dose: 1,000 mg Tamsulosin HCl (Flomax) 0.4 mg PO BEDTIME [facility] Last Admin: 09/21/17 19:30 Dose: 0.4 mg Temazepam (Restoril) 15 mg PO BEDTIME PRN PRN Reason: Insomnia Last Admin: 09/21/17 00:01 Dose: 15 mg Discontinued Medications Diltiazem HCl (Diltiazem) 20 mg IVPUSH ONETIME ONE Stop: 09/20/17 17:08 Last Admin: 09/20/17 17:14 Dose: 20 mg Diltiazem HCl (Diltiazem) 25 mg IVPUSH ONETIME ONE Stop: 09/20/17 17:25 Last Admin: 09/20/17 17:33 Dose: 25 mg Famotidine (Pepcid) 40 mg IVPUSH ONETIME ONE Stop: 09/20/17 17:06 Last Admin: 09/20/17 17:20 Dose: 40 mg Non-Formulary Medication (Ursodiol [Ursodiol]) 500 mg PO TID [facility] Sulfasalazine (Sulfasalazine) 1,000 mg PO BID [facility] - Exam General: Alert, Oriented HEENT: Pupils Equal, Pupils Reactive, EOMI, Mucous Membr. Moist/[place] Neck: Supple Lungs: Clear to Auscultation, Normal Respiratory Effort Cardiovascular: Regular Rate, Regular Rhythm GI/Abdominal Exam: Normal Bowel Sounds, Soft, Non-Tender, No Organomegaly, No Distention, No Abnormal Bruit, No Mass, Pelvis Stable (Male) Exam: No Hernia, Normal Inspection, Normal Prostate, Circumcised Back Exam: Normal Inspection, Full Range of Motion Extremities: Normal Inspection, Normal Range of Motion, Non-Tender, No Pedal Edema, Normal Capillary Refill Skin: Warm, Dry, Intact Wound/Incisions: Healing Well Neurological: No New Focal Deficit Psy/Mental Status: Alert, Normal Affect, Normal Mood - Problem List & Annotations (1) Atrial fibrillation with rapid ventricular response SNOMED Code(s): 494357695033881 Code(s): I48.91 - UNSPECIFIED ATRIAL FIBRILLATION Status: Acute Priority : High Current Visit: Yes Annotation/Comment:: At this time I reviewed his old chart and agreed with Dr. Marinelli the patient deserves a biology teacher second opinion secondary to the fact that this patient is an active 82-year-old who is unable to do his activities of choice secondary to tachycardia patient has been seen in the hospital at least twice in the past month with episodes of supraventricular tach at this time I feel that EP should evaluate and see if feasible candidate for ablation and possible pacemaker secondary to SVT. At this time we'll discharge him with current medications I will see him again in 1 week. - Problem List Review Problem List Initiated/Reviewed/Updated: Yes - Assessment Assessment:: SVT responding to treatment. - Plan Plan:: Patient will be discharged home on current medications thank
== END 2017-09-22 12:05 | disposition home or self-care (01) | DRG 308 ==
LOC: LL.ED 16:57 → UNDOADMIN 18:17 → LL.MS 18:17 → UNDODISIN 09-22 12:05
PROVIDERS: ADMIT Family Medicine; ATTEND Family Medicine
DX: I48.91 Unspecified atrial fibrillation (principal); I50.43 Acute on chronic combined systolic (congestive) and diastolic (congestive) heart failure; I25.810 Atherosclerosis of coronary artery bypass graft(s) without angina pectoris; I11.0 Hypertensive heart disease with heart failure; Z87.891 Personal history of nicotine dependence; I25.2 Old myocardial infarction; Z86.711 Personal history of pulmonary embolism; Z79.01 Long term (current) use of anticoagulants; E83.42 Hypomagnesemia; M06.9 Rheumatoid arthritis, unspecified; R73.9 Hyperglycemia, unspecified; E78.5 Hyperlipidemia, unspecified; K21.9 Gastro-esophageal reflux disease without esophagitis; D64.9 Anemia, unspecified; J44.9 Chronic obstructive pulmonary disease, unspecified; J43.1 Panlobular emphysema; G89.29 Other chronic pain; E03.9 Hypothyroidism, unspecified; N40.0 Benign prostatic hyperplasia without lower urinary tract symptoms; Z91.14 Patient's other noncompliance with medication regimen; H91.93 Unspecified hearing loss, bilateral; H54.7 Unspecified visual loss; Z79.82 Long term (current) use of aspirin; Z79.899 Other long term (current) drug therapy
CPT/HCPCS: 36415; 71045; 80053; 82550; 82553; 83605; 83735; 83880; 84484; 84550; 85025; 85379; 85610; 85730; 93005; 96374; 96375; 99285; A9270 ×2; J3490 ×2; J7050 ×2; 82272; 87338; 93970; J1940; S0028

== ENCOUNTER 2017-09-23 01:30 | Emergency (ER) | payer MEDICARE, OTHER ==
[2017-09-23] MEDS ORDERED: Sodium Chloride 0.9% 10 ML Syringe FLUSH PRN (01:53)
[2017-09-23] MEDS ORDERED: Metoprolol Tartrate 5 MG/5 ML SDV IVPUSH ONE (01:53)
--- NOTE | 2017-09-23 01:53 | EDM.PDOC ---
ED HPI GENERAL MEDICAL PROBLEM - General Chief Complaint: Cardiovascular Problem Stated Complaint: irregular HR Time Seen by Provider: 09/23/17 01:45 Source of Information: Reports: Patient, Family (), Old Records ([facility] chart/EMR) History Limitations: Reports: No Limitations - History of Present Illness INITIAL COMMENTS - FREE TEXT/NARRATIVE: The patient was brought to the emergency room via private automobile by his for reevaluation of his recurrent atrial fibrillation with rapid ventricular response with the patient just discharged from this facility yesterday for the same problem. The patient was previously admitted into this hospital on 09/08 and 09/20/17 for similar problems with patient converting to normal sinus rhythm during recent hospitalization on his metoprolol and diltiazem therapy. His tachycardia did wake him up at about 00:20 a.m. this morning and is associated with some mild dizziness. No history of medication noncompliance. The patient denies any chest pain/pressure, orthostasis, orthopnea, diaphoresis, paresthesias, recent decreased exercise tolerance, or any other anginal-type symptoms. No recent history of abdominal pain, heartburn , nausea, diarrhea, melena, gross hematochezia, or any food intolerance, including fatty foods, etc.. The patient also denies any recent fever, cough, wheezing, dyspnea, etc.. 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) (None) - Related Data Allergies Allergy/AdvReac Type Severity Reaction Status Date / Time No Known Allergies Allergy Verified 09/23/17 01:44 Home Meds: Home Meds Omeprazole 20 mg PO DAILY 11/27/13 [History] Ursodiol 500 mg PO TID 11/27/13 [History] Folic Acid 1 mg PO BEDTIME 11/26/15 [History] Finasteride [Proscar] 5 mg PO BEDTIME 02/12/17 [History] Levothyroxine [Synthroid] 50 mcg PO ACBREAKFAST 02/12/17 [History] Tamsulosin [Flomax] 0.4 mg PO BEDTIME 02/12/17 [History] predniSONE [Prednisone] 5 mg PO DAILY 02/12/17 [History] sulfaSALAzine [Azulfidine] 1,000 mg PO BID 02/12/17 [History] Apixaban [Eliquis] 5 mg PO BID 09/20/17 [History] Metoprolol Tartrate 25 mg PO BID 09/20/17 [History] Diltiazem HCl [Diltiazem 24Hr ER] 180 mg PO DAILY 30 Days #30 capsule.er [Rx] Potassium Chloride 20 meq PO DAILY 30 Days #30 tablet.er 09/22/17 [Rx] Past Medical History HEENT History: Reports: Cataract, Hard of Hearing, Impaired Vision. Denies: Allergic Rhinitis, Glaucoma, Macular Degeneration, Retinal Detachment Other HEENT History: Patient wears glasses. 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 Previous nasal and facial fractures as below. Cardiovascular History: Reports: Afib, Arrhythmia, Blood Clots/VTE/DVT, Bypass, CAD, Cardiomyopathy, Heart Failure, Heart Murmur, High Cholesterol, Hypertension , AK, PVD. Denies: Aneurysm, Pacemaker, PTCA, Stents, Syncope Other Cardiovascular History: AK in 1996 with triple bypass as below. Moderate carotid occlusive disease by carotid artery Doppler studies as below with left- sided 5069% stenosis. Mild grade 1 diastolic dysfunction and mild tricuspid valve and mitral valve insufficiency by echocardiogram on 02/15/17 with ejection fraction is 6265 percent at that time. History of right upper lobe PE on postoperative to TUIP procedure as below. Incomplete/complete right bundle branch block. History of PVCs. Newly diagnosed atrial fibrillation with rapid ventricular response on 09/08/17. Additional repeat small right middle lobe pulmonary embolism on 09/08/17 Respiratory History: Reports: Bronchitis, Recurrent, COPD, Intubation, Previous , PE, Pneumonia, Recurrent, Pulmonary Fibrosis, Other (See Below). Denies: Asthma, Intubation, Difficult, Pneumothorax, Sleep Apnea, TB Other Respiratory History: COPD and pulmonary fibrosis by chest x-ray. PE as above. Benign and stable by serial CT scans bilateral pulmonary nodules Gastrointestinal History: Reports: Cholelithiasis, Colon Polyp, Diverticulosis, Gastritis, GERD, GI Bleed, Hemorrhoids, Other (See Below). Denies: Celiac Disease, Chronic Constipation, Chronic Diarrhea, Fecal Incontinence, Hepatitis, Helicobacter Pylori, Hiatal Hernia, Inflammatory Bowel Disease, Irritable Bowel Syndrome, Jaundice, Pancreatitis Other Gastrointestinal History: Episode of diverticulitis in July 2017 requiring hospitalization in [place] secondary to mild lower GI bleed. History of tubular adenoma in the cecum, transverse colon, and rectal regions removed by colonoscopy on 08/18/17 as below. Patient denies previous pancreatitis , etc. despite ERCPs as below. Benign hepatic cysts and nodules by CT scan Genitourinary History: Reports: BPH, Prostate Disorder, Retention, Urinary, UTI , Recurrent, Other (See Below). Denies: Acute Renal Failure, Chronic Renal Insuffiency, Dialysis, Renal Calculus, STD, Urinary Incontinence Other Genitourinary History: Benign large right renal cyst by serial CT scans with last CT scan on 09/08/17 indicating a somewhat improved 8.5 cm complex Bosnick Type I right renal cyst with a small left renal cyst Musculoskeletal History: Reports: Arthritis, Back Pain, Chronic, Fracture, Neck Pain, Chronic, Osteoarthritis, RA, Other (See Below). Denies: Amputation, Gout , Osteoporosis, SLE Other Musculoskeletal History: Steroid dependent rheumatoid arthritis; nasal fracture, skull and left jaw fracture 1964 secondary to bull injury Neurological History: Reports: Concussion, Headaches, Chronic, Head Trauma, Other (See Below). Denies: Brain Injury, Cerebral Aneurysms, CVA, Migraines, MS , Neuropathy, Peripheral, Parkinson's, Seizure, TIA Other Neuro History: Previous history of chronic headaches likely secondary to distant head injury in 1964 as above but no problems currently with history of head concussion at that time. Psychiatric History: Reports: None. Denies: Abuse, Victim of, ADD, ADHD, Addiction, Anxiety, Dementia, Depression, Psych Hospitalization(s), PTSD, Suicide Attempt, Suicidal Ideation Endocrine/Metabolic History: Reports: Hypothyroidism, Other (See Below). Denies : Diabetes, Type I, Diabetes, Type II, Diabetes Mellitus, Type 3c, IDDM Other Endocrine/Metabolic History: Bilateral gynecomastia. Hypoalbuminemia. Hypomagnesemia Hematologic History: Reports: None. Denies: Anemia, Blood Transfusion(s), Iron Deficiency Immunologic History: Reports: Immunosuppression, Other (See Below). Denies: AIDS, HIV, SLE Other Immunologic History: Chronic steroid therapy as above Oncologic (Cancer) History: Reports: None, Other (See Below). Denies: Basal Cell Carcinoma, Colon, Hodgkin's Lymphoma, Leukemia, Lymphoma, Malignant Melanoma, Non-Hodgkin's Lymphoma, Prostate, Squamous Cell Carcinoma Other Oncologic History: The patient and his deny previous history of basal cell carcinoma despite previous medical records Dermatologic History: Reports: Seborrheic Dermatitis, Other (See Below). Denies : Eczema, Psoriasis Other Dermatologic History: Seborrheic keratosis and additional removal of actinic keratosis from left temporal region on 12/19/14 - Infectious Disease History Infectious Disease History: Reports: Chicken Pox, Measles, Shingles. Denies: C- Difficile, Meningitis, Mononucleosis, MRSA, Mumps, Pertussis (Whooping Cough), Rheumatic Fever, Rubella, Scarlet Fever, TB, VRE - Past Surgical History Head Surgeries/Procedures: Reports: Other (See Below) Other Head Surgeries/Procedures: See HEENT as below HEENT Surgical History: Reports: Cataract Surgery, Naso-Sinus Surgery, Oral Surgery, Other (See Below). Denies: Adenoidectomy, Laser Surgery, LASIK, Myringotomy w Tube(s), Tonsillectomy Other HEENT Surgeries/Procedures: Nasal fracture repair and possible frontal sinus surgery secondary to injury in 1964 as above with the patient denying jaw surgery at this time. Bilateral cataract surgery in about 2011. Complete teeth extraction with complete dentures uppers and lowers Cardiovascular Surgical History: Reports: Coronary Artery Bypass, Vascular Surgery, Other (See Below). Denies: Aneurysm, Cardiac Ablation, Carotid Endarterectomy, Carotid Stents, Coronary Artery Stent, Pacer, Percutaneous Transluminal Angioplasty, Varicose Other Cardiovascular Surgeries/Procedures: He denies previous PTCA/stent despite previous medical records. Three-vessel CABG in 1996 Respiratory Surgical History: Reports: None. Denies: Thoracentesis GI Surgical History: Reports: Cholecystectomy, Colonoscopy, EGD, ERCP, Polypectomy, Other (See Below). Denies: Hernia, Abdominal, Hernia, Inguinal, Hernia Repair/Other Other GI Surgeries/Procedures: Colonoscopy on 08/18/17 with multiple polypectomies as above with previous colonoscopy in about 2011. EGD on 01/06/04. Laparoscopic cholecystectomy in about 2003. Several previous ERCPs with last procedure in July 2003 and previous sphincterotomy in 2005 Male Surgical History: Reports: Circumcision, TUIP, Vasectomy, Other (See Below) Other Male Surgeries/Procedures: TUIP in about November 2015 with postoperative PE as above. Circumcision on 04/15/10. Vasectomy in about 1979 Endocrine Surgical History: Reports: None. Denies: Thyroid Biopsy Neurological Surgical History: Reports: None. Denies: C-Spine, Discectomy, Laminectomy, Lumbar Spine, Sacral Spine, Spinal Fusion, Thoracic Spine, Vertebroplasty Musculoskeletal Surgical History: Reports: None. Denies: Arthroscopic Procedure , Carpal Tunnel, Ganglion Cyst, Joint Replacement, ORIF, Shoulder Surgery Oncologic Surgical History: Reports: None Dermatological Surgical History: Reports: Skin Biopsy, Other (See Below) Other Dermatological Surgeries/Procedures: Excision of actinic keratosis from the left temporal region on 12/19/14 as above - Past Imaging History Past Imaging History: Reports: Angiography (1996 at time of AK), Cardiac Echo ( Last echocardiogram at [facility] in August 2017 with results not available with previous echocardiogram on 02/15/17 with ejection fraction of 6565 percent with findings as above. Previous suboptimal echocardiogram on 01/02), Carotid US (12/12/13 with moderate left-sided disease as above.), CAT Scan (CTA of the chest with PE protocol on 09/08/17. Soft tissues CT scan of the neck on 05/25/16. CT scan of the C-spine and facial bones on 12/11/15. CT of the chest with contrast on 11/26/15 with right upper lobe PE at that time and negative findings at follow-up CT scan on 12/05/15. [address] scan of the chest on . CT of the chest with IV contrast and CT of the brain both on 11/28/13. CT of the abdomen and pelvis on 02/27/08.), Mammogram (02/07/09 with negative findings by patient and his ), MRA (Head on 08/22/17), MRI (Thoracic spine on 12/04/13), Stress Testing (Last Cardiolite stress test on 09/22/15 with ejection fraction of 66%. Low level cardiac stress test on 03/03/14. Cardiolite stress test on 04/06/12.), Venous Doppler (Negative venous Doppler studies of the lower extremities on 09/21/17) Social & Family History - Family History HEENT: Reports: Macular Degeneration, Other (See Below). Denies: Glaucoma, Retinal Detachment Other HEENT Family History: Sister with macular degeneration Cardiac: Reports: Arrhythmia, Bypass, CAD, Hypertension, AK, Stent, Other (See Below). Denies: Afib, AICD, Aneurysm, Blood Clots/VTE/DVT, Heart Failure, Heart Murmur, High Cholesterol, Pacemaker, PVD/COD, Syncope Other Cardiac Family History: Mother with initial AK in her 60s with 2 previous MIs and fatal CHF at age 97. Maternal uncles 4 with history of AK with one uncle dying from his AK in his 70s. One of these uncles did have his fatal AK in his 40s with another dying in his 60s. Brother with history of AK in his 60s with CABG at that time. CHF in mother as below with maternal uncles 2 also with fatal CHF in their 60s. Sister with PTCA/stent in her late 70s. Hypertension in mother and sister. Sister with unknown type of tachycardia Respiratory: Reports: Asthma, Other (See Below). Denies: COPD, PE, Pneumothorax , Sleep Apnea Other Respiratory Family Hisory: Mother with asthma GI: Reports: None. Denies: Celiac Disease, Cholelithiasis, Colon Polyps, GERD, GI bleed, Inflammatory Bowel Disease, Irritable Bowel Syndrome, PUD : Reports: None, Other (See Below). Denies: Renal Calculus, Renal Disease/ Insufficiency Other Family History: Mother with only one kidney possibly congenital versus atrophy OBGYN: Reports: None. Denies: Endometriosis, Recurrent Spontaneous Musculoskeletal: Reports: Arthritis, RA, Other (See Below). Denies: Gout, SLE Other Musculoskeletal Family History: Paternal aunt with rheumatoid arthritis Neurological: Reports: None. Denies: Alzheimers Disease, Cerebral Aneurysms, CVA, Dementia, Migraines, MS, Parkinson's, Seizure, TIA Psychiatric: Reports: None. Denies: Abuse, Victim of, ADD, ADHD, Anxiety, Depression, Psych Hospitalization(s), PTSD, Suicide Attempt Endocrine/Metabolic: Reports: Diabetes, type II, IDDM, Other (See Below). Denies: Diabetes, Type I, Diabetes Mellitus, Type 3c, Hypothyroidism Other Endocrine/Metabolic Family History: Paternal uncle with IDDM Hematologic: Reports: None. Denies: Anemia, Transfusion Reaction Immunologic: Reports: None. Denies: AIDS, HIV, SLE Dermatologic: Reports: None. Denies: Eczema, Psoriasis Oncologic: Reports: None. Denies: Colon, Hodgkin's Lymphoma, Leukemia, Lymphoma , Non-Hodgkin's Lymphoma, Pancreatic, Skin - Tobacco Use Smoking Status *Q: Former Smoker Years of Tobacco use: 28 Packs/Tins Daily: 1 (Smoked between ages 19 and 47 with average use of 12 packs per day) Used Tobacco, but Quit: Yes Month Tobacco Last Used: As above Smoking Cessation Information Provided To Patient: No Second Hand Smoke Exposure: No Second Hand Smoke Education Provided: No - Caffeine Use Caffeine Use: Reports: Coffee (6 Cups per day), Soda (Occasional Mountain Dew 1/ month). Denies: Energy Drinks, Tea - Alcohol Use Alcohol Use History: Yes Days Per Week of Alcohol Use: 0 (No previous DWIs, problems with alcohol abuse, etc.) Number of Drinks Per Day: 1 (Usually wine for holidays) Total Drinks Per Week: 0 Alcohol Use in Last Twelve Months: Yes Alcohol Use Frequency: Rarely - Recreational Drug Use Recreational Drug Use: No Drug Use in Last 12 Months: No Recreational Drug Type: Denies: Amphetamines (Speed), Cocaine, Heroin, Inhalants (Glues, Solvents, Aerosols), LSD (Acid), Marijuana/Hashish, Methamphetamine, Morphine, Oxycodone Recreational Drug Last Use: 6 cups of coffee per day, Mountain Dew 3-4 times per week - Living Situation & Occupation Living situation: Reports: (1955, 4 children), with Family () Occupation: Retired ([employer] in 1996) ED ROS GENERAL - Review of Systems Review Of Systems: ROS reveals no pertinent complaints other than HPI. ED EXAM, GENERAL - Physical Exam Exam: See Below Exam Limited By: No Limitations General Appearance: Alert, WD/WN, No Apparent Distress Eye Exam: Bilateral Eye: EOMI, Normal Inspection (No nystagmus. Patient wearing glasses) Ears: Normal External Exam, Normal Canal, Normal TMs, Hearing Loss (Moderate bilateral presbycusis with the patient not having his hearing aids today) Nose: Normal Inspection, Normal Mucosa, No Blood Throat/Mouth: Normal Inspection, Normal Lips, Normal Gums, Normal Oropharynx, Normal Voice, No Airway Compromise. No: Normal Teeth (Complete dentures uppers and lowers) Head: Atraumatic, Normocephalic. No: Facial Swelling, Facial Tenderness, Sinus Tenderness Neck: Supple, Non-Tender, Full Range of Motion, Carotid Bruit (Mild bilateral carotid bruits). No: Lymphadenopathy (L), Lymphadenopathy (R), Thyromegaly Respiratory/Chest: No Respiratory Distress, Lungs Clear, Normal Breath Sounds, No Accessory Muscle Use, Chest Non-Tender. No: Pleural Rub, Retractions Cardiovascular: Normal Peripheral Pulses, No Edema, No Gallop, No JVD, No Murmur , No Rub, Tachycardia, Irregularly Irregular. No: Gallop/S3, Gallop/S4 Peripheral Pulses: 2+: Radial (L), Radial (R), Dorsalis Pedis (L), Dorsalis Pedis (R) GI/Abdominal: Normal Bowel Sounds, Soft, Non-Tender, No Organomegaly, No Distention, No Abnormal Bruit, No Mass, Pelvis Stable. No: Guarding (Male) Exam: Deferred Rectal (Males) Exam: Deferred Back Exam: Normal Inspection, Full Range of Motion. No: CVA Tenderness (L), CVA Tenderness (R), Muscle Spasm Extremities: Normal Range of Motion, Non-Tender, No Pedal Edema, Normal Capillary Refill, Other (Moderate ecchymosis in the forearms bilaterally). No: Vahe's Sign Neurological: Alert, Oriented, CN II-XII Intact, Normal Cognition, Normal Gait, Normal Reflexes (Negative Babinski's), No Motor/Sensory Deficits Psychiatric: Normal Affect, Normal Mood Skin Exam: Warm, Intact, No Rash, Ecchymosis (As above). No: Petechiae, Wound/ Incision Lymphatic: No Adenopathy EKG INTERPRETATION EKG Date: 09/23/17 Time: 02:05 Rhythm: A-Fib Rate (Beats/Min): 104 P-Wave: Variable (With pulmonary hypertension by EKG) QRS: RBBB (Yours interval of 0.10 seconds representing repolarization changes with T-wave inversion in lead V1) ST-T: Normal QT: Normal VA/PQ Interval: Not applicable Comparison: Change From Previous EKG (Returned atrial fibrillation from previous normal sinus rhythm on 09/21/17) EKG Interpretation Comments: 1. Recurrent atrial fibrillation with rapid ventricular response 2. Pulmonary hypertension by EKG Course - Vital Signs Last Recorded V/S: Last Vital Signs Temp 36.7 C 09/23/17 01:30 Pulse 100 09/23/17 02:51 Resp 12 09/23/17 02:51 BP 116/51 L 09/23/17 02:51 Pulse Ox 96 09/23/17 02:51 Vital Signs - 24 hr 09/23/17 09/23/17 09/23/17 01:30 01:48 01:59 Temperature [ 36.7 C Oral] Pulse, 96 Peripheral Pulse, 123 H 106 H Peripheral [ Apical] Respiratory 13 12 Rate Blood Pressure 124/62 Blood Pressure 140/80 [Left Upper Arm ] Blood Pressure 169/148 H 124/62 [Right Upper Arm] O2 Sat by Pulse 96 96 Oximetry 09/23/17 09/23/17 09/23/17 02:05 02:20 02:36 Temperature [ Oral] Pulse, Peripheral Pulse, 113 H 92 90 Peripheral [ Apical] Respiratory 12 11 L 11 L Rate Blood Pressure Blood Pressure 110/60 110/56 L [Left Upper Arm ] Blood Pressure 98/57 L [Right Upper Arm] O2 Sat by Pulse 95 95 96 Oximetry 09/23/17 02:51 Temperature [ Oral] Pulse, Peripheral Pulse, 100 Peripheral [ Apical] Respiratory 12 Rate Blood Pressure Blood Pressure 116/51 L [Left Upper Arm ] Blood Pressure [Right Upper Arm] O2 Sat by Pulse 96 Oximetry - Orders/Labs/Meds Orders: Active Orders 24 hr Category Date Time Status Cardiac Monitoring [RC] . DIRECTED Care 09/23/17 01:53 Active Communication Order [RC] ROUTINE Care 09/23/17 03:22 Ordered EKG Documentation Completion [RC] ASDIRECTED Care 09/23/17 01:53 Active Oxygen Therapy, ED [RC] PRN Care 09/23/17 01:53 Active Peripheral IV Care [RC] . DIRECTED Care 09/23/17 01:53 Active Pulse Oximetry [RC] CONTINUOUS Care 09/23/17 01:53 Active Up With Assistance [RC] PFP Care 09/23/17 01:53 Active Vital Signs [RC] PFP Care 09/23/17 01:53 Active Nothing per Oral Now Diet [DIET] Diet 09/23/17 Breakfast Active Chest 1V Frontal [CR] Stat Exams 09/23/17 01:53 Ordered Sodium Chloride 0.9% [Saline Flush] Med 09/23/17 01:53 Active 10 ml FLUSH ASDIRECTED PRN Obtain Past Medical Record [OM.PC] Urgent Oth 09/23/17 01:53 Active Peripheral IV Insertion Adult [OM.PC] Stat Oth 09/23/17 01:53 Ordered Resuscitation Status Stat Resus Stat 09/23/17 01:53 Ordered EKG 12 Lead [EK] Stat Ther 09/23/17 01:53 Ordered Medication Orders Sodium Chloride (Saline Flush) 10 ml FLUSH ASDIRECTED PRN PRN Reason: Keep Vein Open Last Admin: 09/23/17 01:59 Dose: 10 ml Labs: Laboratory Tests 09/23/17 09/23/17 09/23/17 Range/Units 01:50 01:50 01:50 WBC 7.9 (4.0-10.2) K/uL RBC 3.66 L (4.33-5.41) M/uL Hgb 11.8 L (13.1-16.8) g/dL Hct 34.7 L (39.0-49.0) % MCV 94.8 (84.0-98.0) fL MCH 32.2 (28.2-33.3) pg MCHC 34.0 (31.7-36.0) g/dL RDW 12.6 (11.2-14.1) % Plt Count 274 (150-350) K/uL Neut % (Auto) 68.7 (45.0-80.0) % Lymph % (Auto) 17.9 (10.0-50.0) % [place] % (Auto) 11.5 (2.0-14.0) % Eos % (Auto) 1.6 (0.0-5.0) % Baso % (Auto) 0.3 (0.0-2.0) % Neut # (Auto) 5.41 (1.40-7.00) K/uL Lymph # (Auto) 1.41 (0.50-3.50) K/uL [place] # (Auto) 0.91 (0.00-1.00) K/uL Eos # (Auto) 0.13 (0.00-0.50) K/uL Baso # (Auto) 0.02 (0.00-0.20) K/uL PT 11.2 (9.8-11.7) SEC INR 1.0 APTT 27.8 (22.1-29.8) SEC D-Dimer, Quantitative 1390 H (0-400) ng/mL Sodium (136-145) mmol/L Potassium (3.5-5.1) mmol/L Chloride (98-107) mmol/L Carbon Dioxide (21.0-32.0) mmol/L BUN (7-18) mg/dL Creatinine (0.51-1.17) mg/dL Est Cr Clr Drug Dosing mL/min Estimated GFR (MDRD) mL/min Glucose (74-106) mg/dL Lactic Acid (0.4-2.0) mmol/L Uric Acid (2.6-7.2) mg/dL Calcium (8.5-10.1) mg/dL Magnesium (1.8-2.4) mg/dL Total Bilirubin (0.2-1.0) mg/dL AST (15-37) U/L ALT (12-78) U/L Alkaline Phosphatase (46-116) IU/L Creatine Kinase (26-308) U/L Creatine Kinase Index (0.0-2.5) % CK-MB (CK-2) (0.00-3.60) ng/mL Troponin I (0.000-0.056) ng/mL NT-Pro-B Natriuret Pep (0-125) pg/mL Total Protein (6.4-8.2) g/dL Albumin (3.4-5.0) g/dL 09/23/17 09/23/17 Range/Units 01:50 01:50 WBC (4.0-10.2) K/uL RBC (4.33-5.41) M/uL Hgb (13.1-16.8) g/dL Hct (39.0-49.0) % MCV (84.0-98.0) fL MCH (28.2-33.3) pg MCHC (31.7-36.0) g/dL RDW (11.2-14.1) % Plt Count (150-350) K/uL Neut % (Auto) (45.0-80.0) % Lymph % (Auto) (10.0-50.0) % [place] % (Auto) (2.0-14.0) % Eos % (Auto) (0.0-5.0) % Baso % (Auto) (0.0-2.0) % Neut # (Auto) (1.40-7.00) K/uL Lymph # (Auto) (0.50-3.50) K/uL [place] # (Auto) (0.00-1.00) K/uL Eos # (Auto) (0.00-0.50) K/uL Baso # (Auto) (0.00-0.20) K/uL PT (9.8-11.7) SEC INR APTT (22.1-29.8) SEC D-Dimer, Quantitative (0-400) ng/mL Sodium 137 (136-145) mmol/L Potassium 3.8 (3.5-5.1) mmol/L Chloride 100 (98-107) mmol/L Carbon Dioxide 26.9 (21.0-32.0) mmol/L BUN 21 H (7-18) mg/dL Creatinine 0.97 (0.51-1.17) mg/dL Est Cr Clr Drug Dosing 62.71 mL/min Estimated GFR (MDRD) > 60 mL/min Glucose 130 H (74-106) mg/dL Lactic Acid 0.8 (0.4-2.0) mmol/L Uric Acid 2.9 (2.6-7.2) mg/dL Calcium 8.8 (8.5-10.1) mg/dL Magnesium 1.7 L (1.8-2.4) mg/dL Total Bilirubin 0.2 (0.2-1.0) mg/dL AST 13 L (15-37) U/L ALT 11 L (12-78) U/L Alkaline Phosphatase 61 (46-116) IU/L Creatine Kinase 26 (26-308) U/L Creatine Kinase Index 1.2 (0.0-2.5) % CK-MB (CK-2) 0.30 (0.00-3.60) ng/mL Troponin I 0.000 (0.000-0.056) ng/mL NT-Pro-B Natriuret Pep 770 H (0-125) pg/mL Total Protein 6.7 (6.4-8.2) g/dL Albumin 3.0 L (3.4-5.0) g/dL Meds: Medications Generic Name Dose Route Start Last Admin Trade Name Frezoe PRN Reason Stop Dose Admin Sodium Chloride 10 ml 09/23/17 01:53 09/23/17 01:59 Saline Flush FLUSH 10 ml ASDIRECTED PRN Administration Keep Vein Open Discontinued Medications Generic Name Dose Route Start Last Admin Trade Name Freq PRN Reason Stop Dose Admin Metoprolol Tartrate 2.5 mg 09/23/17 01:53 09/23/17 01:59 Lopressor IVPUSH 09/23/17 01:54 2.5 mg ONETIME ONE Administration Metoprolol Tartrate Confirm 09/23/17 01:58 09/23/17 02:22 Lopressor Administered 09/23/17 01:59 Not Given Dose 5 mg .ROUTE .STK-MED ONE - Radiology Interpretation Free Text/Narrative:: ekg monitor showed atrial fibrillation with rapid ventricular response with heart rate in the 120s to 104 days initially. Note persistent atrial fibrillation with heart rates ranging in the 70s to 100s prior to discharge with no other ectopy or arrhythmia Departure - Departure Time of Disposition: 03:30 Disposition: DC/Tfer to Acute Hospital 02 Reason for Transfer *Q: Other (Cardiology consultation) Condition: Good Clinical Impression: Atrial fibrillation with rapid ventricular response, CHF (congestive heart failure), D-dimer, elevated, Hypomagnesemia, Pulmonary embolus, COPD (chronic obstructive pulmonary disease), Coronary artery disease, Gastroesophageal reflux disease, HTN, Benign hypertension, Rheumatoid arteritis, Hyperlipidemia, Hypoalbuminemia, Hyperglycemia Referrals: Abram Dsouza MD [Primary Care Provider] - Forms: ED Department Discharge, Interfacility Transfer EMTALA Additional Instructions: 1. Family is to drive you to [facility] at the [place] location in [facility] for direct admission and probable cardiology consultation tomorrow 2. Strict nothing to eat or drink until otherwise directed by [place] physicians 3. Note that your Zocor should likely be decreased to 10 mg by mouth daily at bedtime, if you are continued on diltiazem with current dose of Zocor to be held for now 4. You have been discharged with a saline lock. - Problem List & Annotations (1) Atrial fibrillation with rapid ventricular response SNOMED Code(s): 433869110895809 Code(s): I48.91 - UNSPECIFIED ATRIAL FIBRILLATION Status: Acute Priority : High Current Visit: Yes Annotation/Comment:: Note refractory recurrent atrial fibrillation as above with no current chest pain or anginal type symptoms. Telephone consultation at 02:[address] Espinosa, hospitalist at [facility] in [place], who does accept the patient for direct admission at their [place] location, with no further treatment recommendations given. Patient will be discharged with saline lock in place and given to that facility via private automobile by his . Vital signs and his exam are stable at time of discharge. Probable cardiology consultation with possible future EP studies in the accepting facility. [facility] was aware of private automobile transfer. (2) CHF (congestive heart failure) SNOMED Code(s): 27782364 Code(s): I50.9 - HEART FAILURE, UNSPECIFIED Status: Acute Priority: High Current Visit: Yes Onset Date: 09/08/17 Annotation/Comment:: Borderline CHF during recent hospitalization with low-dose IV Lasix therapy during that time. No Lasix or other diuretic therapy was prescribed at discharge yesterday. BNP is actually somewhat improved from recent hospitalization. No clinical evidence of significant CHF despite his tachycardia. Consider low-dose diuretic therapy at discharge from the accepting facility. Note echocardiogram apparently recently conducted at [facility] in [place] in August 2017 by patient history as above. Qualifiers: Heart failure type: combined systolic and diastolic Heart failure chronicity: acute on chronic Qualified Code(s): I50.43 - Acute on chronic combined systolic (congestive) and diastolic (congestive) heart failure (3) D-dimer, elevated SNOMED Code(s): 775294799 Code(s): R79.89 - OTHER SPECIFIED ABNORMAL FINDINGS OF BLOOD CHEMISTRY Status: Acute Priority: High Current Visit: Yes Onset Date: 09/08/17 Annotation/Comment:: Chronic dimer elevations with history of recurrent PEs and recent negative venous Doppler studies of the lower extremities as above. D- dimer is actually lower than during recent hospitalization. Note current Eliquis therapy. (4) Hypomagnesemia SNOMED Code(s): 332040832 Code(s): E83.42 - HYPOMAGNESEMIA Status: Acute Priority: Medium Current Visit: Yes Onset Date: 09/08/17 Annotation/Comment:: Patient was treated with high-dose oral magnesium oxide therapy during recent hospitalization, however was not discharged on this medication. Consider magnesium oxide therapy at discharge from accepting facility. Patient did receive IV magnesium during previous hospitalization in this facility in August. (5) Pulmonary embolus SNOMED Code(s): 47539581 Code(s): I26.99 - OTHER PULMONARY EMBOLISM WITHOUT ACUTE COR PULMONALE Status: Acute Priority: High Current Visit: Yes Onset Date: 09/08/17 Annotation/Comment:: Recurrent PEs as above. Continue Eliquis. Continue to observe closely by accepting physicians and his regular providers. Qualifiers: Pulmonary embolism type: other Chronicity: acute Acute cor pulmonale presence: without acute cor pulmonale Qualified Code(s): I26.99 - Other pulmonary embolism without acute cor pulmonale (6) COPD (chronic obstructive pulmonary disease) SNOMED Code(s): 52282912 Code(s): J44.9 - CHRONIC OBSTRUCTIVE PULMONARY DISEASE, UNSPECIFIED Status : Chronic Priority: Medium Current Visit: Yes Annotation/Comment:: Stable by patient history with no recent fever or bronchitic type symptoms Qualifiers: COPD type: emphysema Emphysema type: panlobular Qualified Code(s): J43.1 - Panlobular emphysema (7) Coronary artery disease SNOMED Code(s): 85805660 Code(s): I25.10 - ATHSCL HEART DISEASE OF [place] CORONARY ARTERY W/O ANG PCTRS Status: Chronic Priority: Medium Current Visit: Yes Annotation/ Comment:: No recent chest pain or true anginal type symptoms with EKG showing no significant ischemia. Qualifiers: Coronary Disease-Associated Artery/Lesion type: bypass graft [place] vs. transplanted heart: platinum heart Associated angina: with stable angina Qualified Code(s): I25.708 - Atherosclerosis of coronary artery bypass graft(s) , unspecified, with other forms of angina pectoris (8) Gastroesophageal reflux disease SNOMED Code(s): 969662461 Code(s): K21.9 - GASTRO-ESOPHAGEAL REFLUX DISEASE WITHOUT ESOPHAGITIS Status: Chronic Priority: Medium Current Visit: Yes Annotation/Comment:: High-dose IV Pepcid given as GI prophylaxis. No recent abdominal complaints or history of GI bleed. Note previous history of diverticulitis and mild to lower GI bleed in July with no evidence of persistent bleeding by follow-up colonoscopy as above. Qualifiers: Esophagitis presence: without esophagitis Qualified Code(s): K21.9 - Gastro -esophageal reflux disease without esophagitis (9) HTN, Benign hypertension SNOMED Code(s): 04553519 Code(s): I10 - ESSENTIAL (PRIMARY) HYPERTENSION Status: Chronic Priority : Medium Current Visit: Yes Annotation/Comment:: Blood Pressures somewhat elevated initially in the emergency room, however significantly improved with aggressive medical therapy for his cardiac arrhythmia as above. 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 Stable by history (11) Hyperlipidemia SNOMED Code(s): 32815902 Code(s): E78.5 - HYPERLIPIDEMIA, UNSPECIFIED Status: Chronic Priority: Medium Current Visit: Yes Annotation/Comment:: As above. Note that lipid panel was conducted in this facility on 09/09/17 with adequate control of his hyperlipidemia at the previous 40 mg Zocor dose Qualifiers: Hyperlipidemia type: unspecified Qualified Code(s): E78.5 - Hyperlipidemia , unspecified (12) Hyperglycemia SNOMED Code(s): 22223580 Code(s): R73.9 - HYPERGLYCEMIA, UNSPECIFIED Status: Acute Priority: Medium Current Visit: Yes Onset Date: 09/08/17 Annotation/Comment:: No previous history of diabetes mellitus. Glycosylated hemoglobin on 09/09 was normal (13) Hypoalbuminemia SNOMED Code(s): 665190854 Code(s): E88.09 - OTH DISORDERS OF PLASMA-PROTEIN METABOLISM, NEC Status: Chronic Priority: Medium Current Visit: Yes Annotation/Comment:: Continuation of high-protein Glucerna supplements twice a day as snacks as during recent hospitalization recommended - Problem List Review Problem List Initiated/Reviewed/Updated: Yes - My Orders Last 24 Hours: My Active Orders 09/23/17 01:53 Cardiac Monitoring [RC] . DIRECTED EKG Documentation Completion [RC] ASDIRECTED Oxygen Therapy, ED [RC] PRN Peripheral IV Care [RC] . DIRECTED Pulse Oximetry [RC] CONTINUOUS Up With Assistance [RC] PFP Vital Signs [RC] PFP Chest 1V Frontal [CR] Stat Sodium Chloride 0.9% [Saline Flush] 10 ml FLUSH ASDIRECTED PRN Obtain Past Medical Record [OM.PC] Urgent Peripheral IV Insertion Adult [OM.PC] Stat Resuscitation Status Stat EKG 12 Lead [EK] Stat 09/23/17 03:22 Communication Order [RC] ROUTINE 09/23/17 Breakfast Nothing per Oral Now Diet [DIET] - Assessment/Plan Last 24 Hours: My Active Orders 09/23/17 01:53 Cardiac Monitoring [RC] . DIRECTED EKG Documentation Completion [RC] ASDIRECTED Oxygen Therapy, ED [RC] PRN Peripheral IV Care [RC] . DIRECTED Pulse Oximetry [RC] CONTINUOUS Up With Assistance [RC] PFP Vital Signs [RC] PFP Chest 1V Frontal [CR] Stat Sodium Chloride 0.9% [Saline Flush] 10 ml FLUSH ASDIRECTED PRN Obtain Past Medical Record [OM.PC] Urgent Peripheral IV Insertion Adult [OM.PC] Stat Resuscitation Status Stat EKG 12 Lead [EK] Stat 09/23/17 03:22 Communication Order [RC] ROUTINE 09/23/17 Breakfast Nothing per Oral Now Diet [DIET] Assessment:: As above Plan: As above. Extensive precautions were given to the patient and his , who are in agreement with the treatment plan. See Patient Instructions for further treatment and plan.
[2017-09-23] MEDS ORDERED: Metoprolol Tartrate 5 MG/5 ML SDV ONE (01:58)
[2017-09-23 02:36] LABS: CHLORIDE,CL 100 mmol/L (98-107); SODIUM,NA 137 mmol/L (136-145)
[2017-09-23 04:06] VITALS: BP 118/64
== END 2017-09-23 03:25 ==
LOC: LL.ED 01:30
DX: I11.0 Hypertensive heart disease with heart failure (principal); I50.9 Heart failure, unspecified; I48.91 Unspecified atrial fibrillation; I26.99 Other pulmonary embolism without acute cor pulmonale; I25.10 Atherosclerotic heart disease of native coronary artery without angina pectoris; E83.42 Hypomagnesemia; E78.00 Pure hypercholesterolemia, unspecified; E03.9 Hypothyroidism, unspecified; J44.9 Chronic obstructive pulmonary disease, unspecified; E78.5 Hyperlipidemia, unspecified; I77.6 Arteritis, unspecified; R73.9 Hyperglycemia, unspecified; K21.9 Gastro-esophageal reflux disease without esophagitis; Z79.899 Other long term (current) drug therapy; Z87.891 Personal history of nicotine dependence
CPT/HCPCS: 36415; 80053; 82550; 82553; 83605; 83735; 83880; 84484; 84550; 85025; 85379; 85610; 85730; 93005; 96374; 99285; J7050; 93010; J3490

== ENCOUNTER → 2019-06-05 | Outpatient (CLI) | payer MEDICARE, OTHER | LOC: LL.CLIN 10:56 | PROVIDERS: ATTEND Nurse Practitioner | DX: J44.1 Chronic obstructive pulmonary disease with (acute) exacerbation (principal); Z87.891 Personal history of nicotine dependence | CPT/HCPCS: 99213 ==

== ENCOUNTER 2019-12-17 16:43 | Emergency (ER) | payer MEDICARE, OTHER ==
--- NOTE | 2019-12-17 19:23 | EDM.PDOC ---
ED HPI GENERAL MEDICAL PROBLEM - General Chief Complaint: Cardiovascular Problem Stated Complaint: dizziness, ekg changes Time Seen by Provider: 12/17/19 17:00 Source of Information: Reports: Patient History Limitations: Reports: No Limitations - History of Present Illness INITIAL COMMENTS - FREE TEXT/NARRATIVE: Patient sent from clinic for further evaluation of "heart" after he presented there complaining of worsening dizziness over the last few weeks. Started to have problems with vertigo/dizziness with ambulation about a year ago. Had CT studies/referred to PT for maneuvers to assist with the vertigo. Says PT and maneuvers never helped. Sounds like he had Meclizine prescribed and that did not help. No falls prior to developing dizziness. No new meds/dose changes in preceding months before dizziness. Feels fine sitting/laying down. Becomes symptomatic when he gets up and tries to move around. Head rotation also makes it worse. No other accompanying symptoms/changes. Had some labs and EKG performed at clinic prior to being sent here. - Related Data Allergies Allergy/AdvReac Type Severity Reaction Status Date / Time methotrexate Allergy Other Verified 12/17/19 16:49 Home Meds: Home Meds Omeprazole 20 mg PO DAILY 11/27/13 [History] Ursodiol 500 mg PO TID 11/27/13 [History] Folic Acid 1 mg PO DAILY 11/26/15 [History] Finasteride [Proscar] 5 mg PO BEDTIME 02/12/17 [History] Levothyroxine [Synthroid] 50 mcg PO ACBREAKFAST 02/12/17 [History] Tamsulosin [Flomax] 0.4 mg PO BEDTIME 02/12/17 [History] predniSONE [Prednisone] 5 mg PO DAILY 02/12/17 [History] sulfaSALAzine [Azulfidine] 1,000 mg PO BID 02/12/17 [History] Apixaban [Eliquis] 5 mg PO BID 09/20/17 [History] Potassium Chloride 20 meq PO DAILY 30 Days #30 tablet.er 09/22/17 [Rx] dilTIAZem HCL [Diltiazem 24Hr ER] 180 mg PO DAILY 30 Days #30 capsule.er [Rx] Sotalol HCl [Sotalol] 120 mg PO DAILY 12/17/19 [History] Tiotropium [Spiriva HandiHaler] 1 inh INH DAILY 12/17/19 [History] Vitamin E 1 cap PO DAILY 12/17/19 [History] Past Medical History HEENT History: Reports: Cataract, Hard of Hearing, Impaired Vision Other HEENT History: Patient wears glasses. 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 Previous nasal and facial fractures as below. 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 Moderate carotid occlusive disease by carotid artery Doppler studies as below with left- sided 5069% stenosis. Mild grade 1 diastolic dysfunction and mild tricuspid valve and mitral valve insufficiency by echocardiogram on 02/15/17 with ejection fraction is 6265 percent at that time. History of right upper lobe PE on postoperative to TUIP procedure as below. Incomplete/complete right bundle branch block. History of PVCs. Newly diagnosed atrial fibrillation with rapid ventricular response on 09/08/17. Additional repeat small right middle lobe pulmonary embolism on 09/08/17 Respiratory History: Reports: Bronchitis, Recurrent, COPD, Intubation, Previous , PE, Pneumonia, Recurrent, Pulmonary Fibrosis, Other (See Below) Other Respiratory History: COPD and pulmonary fibrosis by chest x-ray. PE as above. Benign and stable by serial CT scans bilateral pulmonary nodules Gastrointestinal History: Reports: Cholelithiasis, Colon Polyp, Diverticulosis, Gastritis, GERD, GI Bleed, Hemorrhoids, Other (See Below) Other Gastrointestinal History: Episode of diverticulitis in July 2017 requiring hospitalization in [place] secondary to mild lower GI bleed. History of tubular adenoma in the cecum, transverse colon, and rectal regions removed by colonoscopy on 08/18/17 as below. Patient denies previous pancreatitis , etc. despite ERCPs as below. Benign hepatic cysts and nodules by CT scan Genitourinary History: Reports: BPH, Prostate Disorder, Retention, Urinary, UTI , Recurrent, Other (See Below) Other Genitourinary History: Benign large right renal cyst by serial CT scans with last CT scan on 09/08/17 indicating a somewhat improved 8.5 cm complex Bosnick Type I right renal cyst with a small left renal cyst Musculoskeletal History: Reports: Arthritis, Back Pain, Chronic, Fracture, Neck Pain, Chronic, Osteoarthritis, RA, Other (See Below) Other Musculoskeletal History: Steroid dependent rheumatoid arthritis; nasal fracture, skull and left jaw fracture 1964 secondary to bull injury Neurological History: Reports: Concussion, Headaches, Chronic, Head Trauma, Other (See Below) Other Neuro History: Previous history of chronic headaches likely secondary to distant head injury in 1964 as above but no problems currently with history of head concussion at that time. Psychiatric History: Reports: None Endocrine/Metabolic History: Reports: Hypothyroidism, Other (See Below) Other Endocrine/Metabolic History: Bilateral gynecomastia. Hypoalbuminemia. Hypomagnesemia Hematologic History: Reports: None Immunologic History: Reports: Immunosuppression, Other (See Below) Other Immunologic History: Chronic steroid therapy as above Oncologic (Cancer) History: Reports: None, Other (See Below) Other Oncologic History: The patient and his deny previous history of basal cell carcinoma despite previous medical records Dermatologic History: Reports: Seborrheic Dermatitis, Other (See Below) Other Dermatologic History: Seborrheic keratosis and additional removal of actinic keratosis from left temporal region on 12/19/14 - Infectious Disease History Infectious Disease History: Reports: Chicken Pox, Measles, Shingles - Past Surgical History Head Surgeries/Procedures: Reports: Other (See Below) HEENT Surgical History: Reports: Cataract Surgery, Naso-Sinus Surgery, Oral Surgery, Other (See Below) Other HEENT Surgeries/Procedures: Nasal fracture repair and possible frontal sinus surgery secondary to injury in 1964 as above with the patient denying jaw surgery at this time. Bilateral cataract surgery in about 2011. Complete teeth extraction with complete dentures uppers and lowers Cardiovascular Surgical History: Reports: Coronary Artery Bypass, Vascular Surgery, Other (See Below) Other Cardiovascular Surgeries/Procedures: He denies previous PTCA/stent despite previous medical records. Three-vessel CABG in 1996 Respiratory Surgical History: Reports: None GI Surgical History: Reports: Cholecystectomy, Colonoscopy, EGD, ERCP, Polypectomy, Other (See Below) Other GI Surgeries/Procedures: Colonoscopy on 08/18/17 with multiple polypectomies as above with previous colonoscopy in about 2011. EGD on 01/06/04. Laparoscopic cholecystectomy in about 2003. Several previous ERCPs with last procedure in July 2003 and previous sphincterotomy in 2005 Male Surgical History: Reports: Circumcision, TUIP, Vasectomy, Other (See Below) Other Male Surgeries/Procedures: TUIP in about November 2015 with postoperative PE as above. Circumcision on 04/15/10. Vasectomy in about 1979 Endocrine Surgical History: Reports: None Neurological Surgical History: Reports: None Musculoskeletal Surgical History: Reports: None Oncologic Surgical History: Reports: None Dermatological Surgical History: Reports: Skin Biopsy, Other (See Below) - Past Imaging History Past Imaging History: Reports: Angiography (1996 at time of AR), Cardiac Echo ( Last echocardiogram at [facility] in August 2017 with results not available with previous echocardiogram on 02/15/17 with ejection fraction of 6565 percent with findings as above. Previous suboptimal echocardiogram on 01/02), Carotid US (12/12/13 with moderate left-sided disease as above.), CAT Scan (CTA of the chest with PE protocol on 09/08/17. Soft tissues CT scan of the neck on 05/25/16. CT scan of the C-spine and facial bones on 12/11/15. CT of the chest with contrast on 11/26/15 with right upper lobe PE at that time and negative findings at follow-up CT scan on 12/05/15. [address] scan of the chest on . CT of the chest with IV contrast and CT of the brain both on 11/28/13. CT of the abdomen and pelvis on 02/27/08.), Mammogram (02/07/09 with negative findings by patient and his ), MRA (Head on 08/22/17), MRI (Thoracic spine on 12/04/13), Stress Testing (Last Cardiolite stress test on 09/22/15 with ejection fraction of 66%. Low level cardiac stress test on 03/03/14. Cardiolite stress test on 04/06/12.), Venous Doppler (Negative venous Doppler studies of the lower extremities on 09/21/17) Social & Family History - Family History Family Medical History: Noncontributory HEENT: Reports: Macular Degeneration, Other (See Below) Other HEENT Family History: Sister with macular degeneration Cardiac: Reports: Arrhythmia, Bypass, CAD, Hypertension, AR, Stent, Other (See Below) Other Cardiac Family History: Mother with initial AR in her 60s with 2 previous MIs and fatal CHF at age 97. Maternal uncles 4 with history of AR with one uncle dying from his AR in his 70s. One of these uncles did have his fatal AR in his 40s with another dying in his 60s. Brother with history of AR in his 60s with CABG at that time. CHF in mother as below with maternal uncles 2 also with fatal CHF in their 60s. Sister with PTCA/stent in her late 70s. Hypertension in mother and sister. Sister with unknown type of tachycardia Respiratory: Reports: Asthma, Other (See Below) Other Respiratory Family Hisory: Mother with asthma GI: Reports: None : Reports: None, Other (See Below) Other Family History: Mother with only one kidney possibly congenital versus atrophy OBGYN: Reports: None Musculoskeletal: Reports: Arthritis, RA, Other (See Below) Other Musculoskeletal Family History: Paternal aunt with rheumatoid arthritis Neurological: Reports: None Psychiatric: Reports: None Endocrine/Metabolic: Reports: Diabetes, type II, IDDM, Other (See Below) Other Endocrine/Metabolic Family History: Paternal uncle with IDDM Hematologic: Reports: None Immunologic: Reports: None Dermatologic: Reports: None Oncologic: Reports: None - Tobacco Use Smoking Status *Q: Former Smoker Years of Tobacco use: 20 Packs/Tins Daily: 1 Used Tobacco, but Quit: No Second Hand Smoke Exposure: No - Caffeine Use Caffeine Use: Reports: Coffee Other Caffeine Use: 2-3 cups per day - Recreational Drug Use Recreational Drug Use: No - Living Situation & Occupation Living situation: Reports: (1955, 4 children), with Family () Occupation: Retired ([employer] in 1996) ED ROS GENERAL - Review of Systems Review Of Systems: See Below Constitutional: Denies: Fever, Chills, Malaise, Weakness, Fatigue, Night Sweats , Diaphoresis, Decreased Appetite, Weight Loss HEENT: Reports: Vertigo. Denies: Dental Pain, Ear Discharge, Ear Pain, Eye Discharge, Eye Pain, Vision Change Respiratory: Reports: Shortness of Breath (some chronic baseline SOB that is unchanged). Denies: Wheezing, Pleuritic Chest Pain, Cough, Hemoptysis Cardiovascular: Reports: Lightheadedness (chronic). Denies: Chest Pain, Blood Pressure Problem, Palpitations, PND, Syncope GI/Abdominal: Reports: No Symptoms : Reports: No Symptoms Musculoskeletal: Reports: Other (no acute changes from baseline) Skin: Reports: No Symptoms Neurological: Reports: Dizziness, Difficulty Walking (can get dizzy with ambulation). Denies: Confusion, Headache, Numbness, Paresthesia, Seizure, Trouble Speaking, Change in Speech Psychiatric: Reports: No Symptoms Hematologic/Lymphatic: Reports: No Symptoms ED EXAM, GENERAL - Physical Exam Exam: See Below Exam Limited By: No Limitations General Appearance: Alert, WD/WN, No Apparent Distress Eye Exam: Bilateral Eye: EOMI, PERRL Ears: Other (right ear canal plugged with wax, left TM clear. Wears bilat hearing aids) Nose: No: Nasal Deformity, Nasal Swelling, Nasal Drainage Throat/Mouth: Normal Lips, Normal Voice, No Airway Compromise Head: Atraumatic, Normocephalic Neck: Supple, Non-Tender, Full Range of Motion Respiratory/Chest: No Respiratory Distress, Lungs Clear, Normal Breath Sounds, No Accessory Muscle Use, Chest Non-Tender Cardiovascular: Normal Peripheral Pulses, Regular Rate, Rhythm, No Murmur GI/Abdominal: Soft, Non-Tender, No Distention (Male) Exam: Deferred Rectal (Males) Exam: Deferred Back Exam: No: CVA Tenderness (L), CVA Tenderness (R), Muscle Spasm Extremities: Non-Tender, Normal Capillary Refill Neurological: Alert, Oriented, CN II-XII Intact, Normal Cognition Psychiatric: Normal Affect, Normal Mood Skin Exam: Warm, Dry, Intact, Normal Color EKG INTERPRETATION EKG Date: 12/17/19 Time: 16:28 Rhythm: Other (Sinus. Occ PAC) Rate (Beats/Min): 65 [place]: Normal P-Wave: Present QRS: Other (incomplete RBBB) ST-T: Other (no obvious changes suggestive of acute AR/ischemia) QT: Normal Comparison: No Change (compared to previous EKGs/overall similar morphology) Course - Vital Signs Last Recorded V/S: Last Vital Signs Temp 36.4 C 12/17/19 19:40 Pulse 68 12/17/19 20:08 Resp 20 12/17/19 20:08 BP 159/53 H 12/17/19 20:08 Pulse Ox 100 12/17/19 20:08 - Orders/Labs/Meds Orders: Active Orders 24 hr Category Date Time Status Head wo Cont [CT] Stat Exams 12/17/19 19:16 Taken Labs: Laboratory Tests 12/17/19 Range/Units 16:23 D-Dimer, Quantitative 625 H (0-400) ng/mL - Re-Assessments/Exams Free Text/Narrative Re-Assessment/Exam: 12/17/19 19:27 Dizziness is chronic, however has been more pronounced over the past few weeks. EKG at clinic as above. CBC showed normal WBC, hgb 9.4 Evelia hgb 10.0 Troponin normal. Chemistry overall unremarkable. DDimer mildly above normal. Review of patient's chart shows chronic DDimer elevation over the years. On Eliquis/has no complaint of worsening SOB or chest pain. Patient declined CT to rule out PE. He will observe for any noted increased SOB or chest pain and said he would consider PE scan if that should arise. Will perform CT of head to rule out acute intracranial changes that may be contributing to acute exacerbation of dizziness. 12/17/19 22:[address] report per Radiology did not note any acute intracranial changes. He was discharged from ER with plan to have him follow up with primary provider this week. Discuss possible reduction of BP meds to see if hypotension contributing to symptoms. Consider referral to Internal Med to review the chronic dizziness and have them make additional recommendations to assist. Also needs to have right ear canal cleaned of cerumen. Recommended he soften it with daily use of ear wax treatment from pharmacy and make appointment with his regular clinic to have ear flushed and cerumen removed. Departure - Departure Time of Disposition: 20:30 Disposition: Home, Self-Care 01 Condition: Good Clinical Impression: Dizziness of unknown etiology Referrals: Darby Garner, [facility] [Primary Care Provider] - Forms: ED Department Discharge Additional Instructions: Follow up with clinic. Discuss having BP meds adjusted and reduced to see if low blood pressure is contributing to your dizziness. Discuss referral to Internal Medicine or Cardiology for review of meds and further possible ideas for treating the dizziness. Follow up for recheck if you have sudden worsening problems. Update 12/17/[address] Paul- WE WILL CALL YOU WITH ANY CONCERNING HEAD CT RESULTS. Sepsis Event Note - Evaluation Sepsis Screening Result: No Definite Risk - Focused Exam Vital Signs: Vital Signs Temp Temp Pulse Resp BP Pulse Ox 12/17/19 20:08 68 20 159/53 H 100 12/17/19 19:40 36.4 C 60 20 145/66 H 100 12/17/19 18:04 58 L 20 128/56 L 100 12/17/19 17:46 59 L 16 128/49 L 100 12/17/19 16:47 37.5 C 62 15 125/54 L 98 Date Exam was Performed: 12/17/19 Time Exam was Performed: 22:53 - My Orders Last 24 Hours: My Active Orders 12/17/19 19:16 Head wo Cont [CT] Stat - Assessment/Plan Last 24 Hours: My Active Orders 12/17/19 19:16 Head wo Cont [CT] Stat
[2019-12-17 22:22] VITALS: BP 159/53; PULSE 68
== END 2019-12-17 20:30 | disposition home or self-care (01) ==
LOC: LL.ED 16:43
DX: R42 Dizziness and giddiness (principal); E03.9 Hypothyroidism, unspecified; I48.91 Unspecified atrial fibrillation; Z95.5 Presence of coronary angioplasty implant and graft; I25.10 Atherosclerotic heart disease of native coronary artery without angina pectoris; I25.2 Old myocardial infarction; I50.9 Heart failure, unspecified; E78.00 Pure hypercholesterolemia, unspecified; I11.0 Hypertensive heart disease with heart failure; Z87.891 Personal history of nicotine dependence; Z88.8 Allergy status to other drugs, medicaments and biological substances; Z79.899 Other long term (current) drug therapy
CPT/HCPCS: 70450; 85379; 99284-25

== ENCOUNTER 2022-03-08 14:32 | Observation (INO) | payer MEDICARE, OTHER ==
[2022-03-08 16:12] LABS: CHLORIDE,CL 97 mmol/L (98-107); SODIUM,NA 136 mmol/L (136-145)
[2022-03-08 16:23] LABS: ANION GAP 13.7 meq/L (7-15); ESTIMATED GFR 43 mL/min (>=60)
[2022-03-08] MEDS ORDERED: Acetaminophen 325 MG Tab PO PRN (16:49)
[2022-03-08] MEDS: sulfaSALAzine 500 MG Tab PO SCH (18:21)
[2022-03-08] MEDS: Apixaban 5 MG Tab PO SCH (18:21)
[2022-03-08] MEDS: Furosemide 40 MG/4 ML VIAL IVPUSH SCH (18:28)
[2022-03-08] MEDS: Finasteride 5 MG Tab PO SCH (19:51)
[2022-03-08] MEDS: Tamsulosin 0.4 MG Cap.ER PO SCH (19:51)
[2022-03-09] MEDS ORDERED: Albuterol/Ipratropium 3.0-0.5 MG/3 ML Neb Soln NEB PRN (06:31)
[2022-03-09] MEDS: Omeprazole 20 MG Cap.CR PO SCH (06:49)
[2022-03-09] MEDS: Levothyroxine 50 MCG Tab PO SCH (06:49)
[2022-03-09] MEDS: Vitamin E (dl-alpha-tocopherol acetate) 400 Unit Cap PO SCH (07:58)
[2022-03-09] MEDS: Apixaban 5 MG Tab PO SCH ×2 (07:59→17:33)
[2022-03-09] MEDS ORDERED: Diltiazem 180 MG Cap.CD PO SCH (08:00)
[2022-03-09] MEDS ORDERED: Folic Acid 1 MG Tab PO SCH (08:00)
[2022-03-09] MEDS: Potassium Chloride 20 MEQ Tab.ER PO SCH (08:00)
[2022-03-09] MEDS ORDERED: predniSONE 5 MG Tab PO SCH (08:00)
[2022-03-09] MEDS: sulfaSALAzine 500 MG Tab PO SCH ×2 (08:01→17:33)
[2022-03-09] MEDS: Furosemide 40 MG/4 ML VIAL IVPUSH SCH ×2 (08:02→17:32)
[2022-03-09] MEDS: Sotalol 80 MG Tab PO SCH (08:10)
[2022-03-09 08:28] LABS: ANION GAP 10.6 meq/L (7-15)
[2022-03-09] MEDS ORDERED: predniSONE 5 MG Tab PO ONE (09:37)
[2022-03-09] MEDS ORDERED: Potassium Chloride 10 MEQ Tab.ER PO ONE (09:39)
[2022-03-09] MEDS: Albuterol/Ipratropium 3.0-0.5 MG/3 ML Neb Soln NEB SCH ×2 (15:14→19:36)
[2022-03-09] MEDS ORDERED: Sodium Chloride 0.9% 10 ML Syringe FLUSH PRN (17:33)
[2022-03-09] MEDS: Finasteride 5 MG Tab PO SCH (19:36)
[2022-03-09] MEDS: Tamsulosin 0.4 MG Cap.ER PO SCH (19:36)
[2022-03-10] MEDS: Albuterol/Ipratropium 3.0-0.5 MG/3 ML Neb Soln NEB SCH ×2 (01:57→07:51)
[2022-03-10] MEDS: Sotalol 80 MG Tab PO SCH (07:47)
[2022-03-10] MEDS: Apixaban 5 MG Tab PO SCH (07:48)
[2022-03-10] MEDS: sulfaSALAzine 500 MG Tab PO SCH (07:49)
[2022-03-10] MEDS: Potassium Chloride 20 MEQ Tab.ER PO SCH (07:49)
[2022-03-10] MEDS: Omeprazole 20 MG Cap.CR PO SCH (07:51)
[2022-03-10] MEDS: Vitamin E (dl-alpha-tocopherol acetate) 400 Unit Cap PO SCH (07:51)
[2022-03-10] MEDS: Levothyroxine 50 MCG Tab PO SCH (07:51)
[2022-03-10] MEDS: Furosemide 40 MG/4 ML VIAL IVPUSH SCH (07:52)
[2022-03-10] MEDS ORDERED: predniSONE 5 MG Tab PO SCH (08:00)
[2022-03-10 08:14] VITALS: BP 115/61; PULSE 63
== END 2022-03-10 13:20 | disposition home or self-care (01) ==
LOC: LL.CLIN 14:32 → LL.MS 16:31
PROVIDERS: ADMIT Physician Assistant; ATTEND Physician Assistant
DX: J44.9 Chronic obstructive pulmonary disease, unspecified (principal); I11.0 Hypertensive heart disease with heart failure; I50.32 Chronic diastolic (congestive) heart failure; D64.9 Anemia, unspecified; R06.02 Shortness of breath; I48.91 Unspecified atrial fibrillation; E78.00 Pure hypercholesterolemia, unspecified; I25.10 Atherosclerotic heart disease of native coronary artery without angina pectoris; K21.9 Gastro-esophageal reflux disease without esophagitis; J84.10 Pulmonary fibrosis, unspecified; K80.20 Calculus of gallbladder without cholecystitis without obstruction; K57.30 Diverticulosis of large intestine without perforation or abscess without bleeding; J18.9 Pneumonia, unspecified organism; G89.29 Other chronic pain; N40.0 Benign prostatic hyperplasia without lower urinary tract symptoms; N39.0 Urinary tract infection, site not specified; E03.9 Hypothyroidism, unspecified; E83.42 Hypomagnesemia; D84.9 Immunodeficiency, unspecified; Z79.899 Other long term (current) drug therapy; Z79.890 Hormone replacement therapy; Z88.8 Allergy status to other drugs, medicaments and biological substances; Z90.49 Acquired absence of other specified parts of digestive tract; Z98.890 Other specified postprocedural states; Z79.02 Long term (current) use of antithrombotics/antiplatelets
CPT/HCPCS: 36415; 71046; 80053; 80069; 83880; 85025; 85379; 86140; 94640; 99214; 99217; 99220; 99225; A9270-GY; J1940; J7512; J7620-GY

== ENCOUNTER 2024-04-19 16:25 | Emergency (ER) | payer MEDICARE, OTHER ==
[2024-04-19 17:22] LABS: BASOPHILS ABSOLUTE AUTO 0.03 K/uL (0.00-0.20); BASOPHILS PERCENT AUTO 0.7 % (0.0-2.0); EOSINOPHILS ABSOLUTE AUTO 0.13 K/uL (0.00-0.50); EOSINOPHILS PERCENT AUTO 3.1 % (0.0-5.0); HEMATOCRIT 37.2 % (39.0-49.0); HEMOGLOBIN 11.7 g/dL (13.1-16.8); LYMPHOCYTES ABSOLUTE AUTO 1.05 K/uL (0.50-3.50); LYMPHOCYTES PERCENT AUTO 24.9 % (10.0-50.0); MEAN CORPUSCULAR HEMOGLOBIN 29.2 pg (28.2-33.3); MEAN CORPUSCULAR HGB CONC 31.5 g/dL (31.7-36.0); MEAN CORPUSCULAR VOLUME 92.8 fL (84.0-98.0); MONOCYTES ABSOLUTE AUTO 0.57 K/uL (0.00-1.00); MONOCYTES PERCENT AUTO 13.5 % (2.0-14.0); NEUTROPHILS ABSOLUTE AUTO 2.44 K/uL (1.40-7.00); NEUTROPHILS PERCENT AUTO 57.8 % (45.0-80.0); PLATELET COUNT,PLT 156 K/uL (150-350); RED BLOOD CELL COUNT 4.01 M/uL (4.33-5.41); RED CELL DISTRIBUTION WIDTH 14.5 % (11.2-14.1); WHITE BLOOD CELL COUNT,WBC 4.2 K/uL (4.0-10.2)
[2024-04-19 17:41] LABS: ALBUMIN 3.6 g/dL (3.4-5.0); ANION GAP 8.6 meq/L (7-15); BILIRUBIN TOTAL 0.3 mg/dL (0.2-1.0); CALCIUM 8.8 mg/dL (8.5-10.1); CARBON DIOXIDE,CO2 34.4 mmol/L (21.0-32.0); CREATININE 1.55 mg/dL (0.51-1.17); EST CRCL DRUG DOSING (CG) 35.32 mL/min; PROTEIN TOTAL,TP 6.6 g/dL (6.4-8.2)
[2024-04-19] MEDS: Lidocaine 2% HCl 11 ML Jelly Filled Syringe ONE (18:23)
[2024-04-19] MEDS: Lidocaine 2% HCl 11 ML Jelly Filled Syringe TOP ONE (18:23)
[2024-04-19 19:02] LABS: APPEARANCE,URINE CLEAR; BILIRUBIN,URINE NEGATIVE (NEGATIVE); COLOR,URINE YELLOW; GLUCOSE,URINE NEGATIVE (NEGATIVE); KETONES,URINE NEGATIVE (NEGATIVE); LEUKOCYTE ESTERASE,URINE NEGATIVE (NEGATIVE); NITRITE,URINE NEGATIVE (NEGATIVE); OCCULT BLOOD,URINE NEGATIVE (NEGATIVE); PROTEIN,URINE NEGATIVE (NEGATIVE); UROBILINOGEN,URINE 0.2 E.U./dL (0.2-1.0)
[2024-04-19 19:54] VITALS: BP 113/62; PULSE 70
== END 2024-04-19 20:20 | disposition home or self-care (01) ==
LOC: LL.ED 16:25
DX: R33.9 Retention of urine, unspecified (principal); I11.0 Hypertensive heart disease with heart failure; I50.9 Heart failure, unspecified; I25.10 Atherosclerotic heart disease of native coronary artery without angina pectoris; I48.91 Unspecified atrial fibrillation; J44.9 Chronic obstructive pulmonary disease, unspecified; K21.9 Gastro-esophageal reflux disease without esophagitis; E03.9 Hypothyroidism, unspecified; Z90.49 Acquired absence of other specified parts of digestive tract; Z79.01 Long term (current) use of anticoagulants; Z79.899 Other long term (current) drug therapy; Z79.890 Hormone replacement therapy; Z88.8 Allergy status to other drugs, medicaments and biological substances
CPT/HCPCS: 36415; 51702; 74018; 80053; 81003; 85025; 99284; A9270

== ENCOUNTER 2024-04-23 10:21 | Inpatient (IN) | payer MEDICARE, OTHER ==
[2024-04-23] MEDS ORDERED: Sodium Chloride 0.9% 10 ML Syringe FLUSH PRN ×2 (10:31)
[2024-04-23 10:51] LABS: BASOPHILS ABSOLUTE AUTO 0.03 K/uL (0.00-0.20); BASOPHILS PERCENT AUTO 0.6 % (0.0-2.0); EOSINOPHILS ABSOLUTE AUTO 0.08 K/uL (0.00-0.50); EOSINOPHILS PERCENT AUTO 1.5 % (0.0-5.0); HEMATOCRIT 36.3 % (39.0-49.0); HEMOGLOBIN 11.5 g/dL (13.1-16.8); LYMPHOCYTES ABSOLUTE AUTO 0.86 K/uL (0.50-3.50); LYMPHOCYTES PERCENT AUTO 16.5 % (10.0-50.0); MEAN CORPUSCULAR HEMOGLOBIN 29.2 pg (28.2-33.3); MEAN CORPUSCULAR HGB CONC 31.7 g/dL (31.7-36.0); MEAN CORPUSCULAR VOLUME 92.1 fL (84.0-98.0); MONOCYTES ABSOLUTE AUTO 0.58 K/uL (0.00-1.00); MONOCYTES PERCENT AUTO 11.1 % (2.0-14.0); NEUTROPHILS ABSOLUTE AUTO 3.67 K/uL (1.40-7.00); NEUTROPHILS PERCENT AUTO 70.3 % (45.0-80.0); PLATELET COUNT,PLT 146 K/uL (150-350); RED BLOOD CELL COUNT 3.94 M/uL (4.33-5.41); RED CELL DISTRIBUTION WIDTH 14.5 % (11.2-14.1); WHITE BLOOD CELL COUNT,WBC 5.2 K/uL (4.0-10.2)
[2024-04-23] MEDS: Lactated Ringers 1,000 ML IV ONE (11:02)
[2024-04-23 11:14] LABS: INR 1.2 (0.9-1.1); PROTHROMBIN TIME 12.3 SEC (9.0-11.1)
[2024-04-23 11:29] LABS: ALBUMIN 3.5 g/dL (3.4-5.0); BILIRUBIN TOTAL 0.4 mg/dL (0.2-1.0); CALCIUM 8.4 mg/dL (8.5-10.1); CARBON DIOXIDE,CO2 35.8 mmol/L (21.0-32.0); CREATININE 1.62 mg/dL (0.51-1.17); EST CRCL DRUG DOSING (CG) 33.8 mL/min; POTASSIUM,K 3.6 mmol/L (3.5-5.1); PROTEIN TOTAL,TP 6.6 g/dL (6.4-8.2)
[2024-04-23 11:32] LABS: ANION GAP 7.8 meq/L (7-15)
[2024-04-23] MEDS: Ondansetron 4 MG/2 ML SDV IVPUSH ONE (12:28)
[2024-04-23] MEDS: Diatrizoate Meglumine/Diatrizoate Sodium 37% 30 ML Bottle PO ONE (13:27)
[2024-04-23] MEDS: Iopamidol 612 MG/ML 100 ML Bottle IVPUSH ONE (13:27)
[2024-04-23] MEDS: sulfaSALAzine 500 MG Tab PO SCH (20:34)
[2024-04-23] MEDS: Sotalol 80 MG Tab PO SCH (20:34)
[2024-04-23] MEDS: Apixaban 5 MG Tab PO SCH (20:35)
[2024-04-23] MEDS: Finasteride 5 MG Tab PO SCH (20:35)
[2024-04-23] MEDS: Tamsulosin 0.4 MG Cap.ER PO SCH (20:35)
[2024-04-23] MEDS: Pregabalin 100 MG Cap PO SCH (20:35)
[2024-04-24 07:07] LABS: BASOPHILS ABSOLUTE AUTO 0.01 K/uL (0.00-0.20); BASOPHILS PERCENT AUTO 0.2 % (0.0-2.0); EOSINOPHILS ABSOLUTE AUTO 0.14 K/uL (0.00-0.50); EOSINOPHILS PERCENT AUTO 3.3 % (0.0-5.0); HEMOGLOBIN 10.8 g/dL (13.1-16.8); LYMPHOCYTES ABSOLUTE AUTO 1.04 K/uL (0.50-3.50); LYMPHOCYTES PERCENT AUTO 24.5 % (10.0-50.0); MEAN CORPUSCULAR HEMOGLOBIN 28.6 pg (28.2-33.3); MEAN CORPUSCULAR HGB CONC 30.9 g/dL (31.7-36.0); MEAN CORPUSCULAR VOLUME 92.6 fL (84.0-98.0); MONOCYTES ABSOLUTE AUTO 0.51 K/uL (0.00-1.00); NEUTROPHILS ABSOLUTE AUTO 2.54 K/uL (1.40-7.00); PLATELET COUNT,PLT 123 K/uL (150-350); RED BLOOD CELL COUNT 3.78 M/uL (4.33-5.41); RED CELL DISTRIBUTION WIDTH 14.6 % (11.2-14.1); WHITE BLOOD CELL COUNT,WBC 4.2 K/uL (4.0-10.2)
[2024-04-24] MEDS: Vitamin B Complex Tab PO SCH (07:14)
[2024-04-24] MEDS: Omeprazole 20 MG Cap.CR PO SCH (07:14)
[2024-04-24] MEDS: Diltiazem 180 MG Cap.CD PO SCH (07:14)
[2024-04-24] MEDS: Magnesium Oxide 400 MG Tab PO SCH (07:15)
[2024-04-24] MEDS: Potassium Chloride 20 MEQ Tab.ER PO SCH (07:16)
[2024-04-24] MEDS: Levothyroxine 112 MCG Tab PO SCH (07:16)
[2024-04-24 07:36] LABS: INR 1.2 (0.9-1.1); PROTHROMBIN TIME 11.8 SEC (9.0-11.1)
[2024-04-24] MEDS ORDERED: ALPHA LIPOIC ACID 600 MG PO SCH (08:00)
[2024-04-24 08:11] LABS: CALCIUM 8.2 mg/dL (8.5-10.1); CARBON DIOXIDE,CO2 34.3 mmol/L (21.0-32.0); CREATININE 1.53 mg/dL (0.51-1.17); EST CRCL DRUG DOSING (CG) 35.78 mL/min; MAGNESIUM 1.7 mg/dL (1.8-2.4); POTASSIUM,K 3.6 mmol/L (3.5-5.1)
[2024-04-24 08:12] LABS: ANION GAP 9.3 meq/L (7-15)
[2024-04-24 13:11] VITALS: BP 99/67; PULSE 92
== END 2024-04-24 14:20 | DRG 291 ==
LOC: LL.ED 10:21 → LL.MS 15:40
PROVIDERS: ADMIT Physician Assistant; ATTEND Physician Assistant
DX: I11.0 Hypertensive heart disease with heart failure (principal); I50.43 Acute on chronic combined systolic (congestive) and diastolic (congestive) heart failure; I50.9 Heart failure, unspecified; D84.9 Immunodeficiency, unspecified; J44.9 Chronic obstructive pulmonary disease, unspecified; I48.91 Unspecified atrial fibrillation; H54.7 Unspecified visual loss; N40.0 Benign prostatic hyperplasia without lower urinary tract symptoms; K21.9 Gastro-esophageal reflux disease without esophagitis; M19.90 Unspecified osteoarthritis, unspecified site; G89.29 Other chronic pain; M54.9 Dorsalgia, unspecified; R14.0 Abdominal distension (gaseous); I25.2 Old myocardial infarction; I25.10 Atherosclerotic heart disease of native coronary artery without angina pectoris; E78.00 Pure hypercholesterolemia, unspecified; E03.9 Hypothyroidism, unspecified; I73.9 Peripheral vascular disease, unspecified; R79.89 Other specified abnormal findings of blood chemistry; Z88.8 Allergy status to other drugs, medicaments and biological substances; Z95.1 Presence of aortocoronary bypass graft; Z90.49 Acquired absence of other specified parts of digestive tract; Z79.01 Long term (current) use of anticoagulants; Z98.52 Vasectomy status; Z98.890 Other specified postprocedural states; Z79.890 Hormone replacement therapy; Z79.899 Other long term (current) drug therapy; Z86.0100 Personal history of colon polyps, unspecified
CPT/HCPCS: 36415; 71046; 71275; 74177; 80048; 80053; 83605; 83735; 83880; 84484; 85025; 85379; 85610; 93308; 96361; 96374; 99223; 99239; 99285-25; A9270-GY; J2405; J7120; Q9963; Q9967

== ENCOUNTER 2024-05-29 05:31 | Emergency (ER) | payer MEDICARE, OTHER ==
[2024-05-29] MEDS ORDERED: Sodium Chloride 0.9% 10 ML Syringe FLUSH PRN (06:21)
[2024-05-29] MEDS: Aluminum Hydroxide/Magnesium Hydroxide/Simethicone Susp 30 ML Cup PO ONE (06:29)
[2024-05-29] MEDS: Lidocaine 2% Viscous Solution 15 ML UD ONE (06:29)
[2024-05-29] MEDS: Lidocaine 2% Viscous Solution 15 ML UD PO ONE (06:29)
[2024-05-29 07:03] LABS: INR 1.1 (0.9-1.1); PROTHROMBIN TIME 11.1 SEC (9.0-11.1)
[2024-05-29 07:04] LABS: ALANINE AMINOTRANSFERASE,ALT 17 U/L (12-78); ALBUMIN 3.8 g/dL (3.4-5.0); ALKALINE PHOSPHATASE 83 IU/L (46-116); ASPARTATE AMNIOTRANSFERASE,AST 31 U/L (15-37); BILIRUBIN TOTAL 0.7 mg/dL (0.2-1.0); BLOOD UREA NITROGEN,BUN 19 mg/dL (7-18); CALCIUM 9.4 mg/dL (8.5-10.1); CARBON DIOXIDE,CO2 33.1 mmol/L (21.0-32.0); CHLORIDE,CL 100 mmol/L (98-107); CREATININE 1.35 mg/dL (0.51-1.17); GLUCOSE RANDOM 123 mg/dL (70-99); MAGNESIUM 2.2 mg/dL (1.8-2.4); POTASSIUM,K 4.9 mmol/L (3.5-5.1); PROTEIN TOTAL,TP 7.3 g/dL (6.4-8.2); SODIUM,NA 139 mmol/L (136-145)
[2024-05-29 07:05] LABS: ANION GAP 10.8 meq/L (7-15); ESTIMATED GFR 51 mL/min (>=60)
[2024-05-29 07:05] LABS: BASOPHILS ABSOLUTE AUTO 0.02 K/uL (0.00-0.20); BASOPHILS PERCENT AUTO 0.4 % (0.0-2.0); EOSINOPHILS ABSOLUTE AUTO 0.07 K/uL (0.00-0.50); EOSINOPHILS PERCENT AUTO 1.5 % (0.0-5.0); HEMATOCRIT 41.1 % (39.0-49.0); HEMOGLOBIN 13.5 g/dL (13.1-16.8); IMMATURE GRAN ABSOLUTE AUTO 0.01 10^3/uL (0.00-0.50); IMMATURE GRAN PERCENT AUTO 0.2 % (0.0-5.0); LYMPHOCYTES ABSOLUTE AUTO 1.42 K/uL (0.50-3.50); LYMPHOCYTES PERCENT AUTO 29.5 % (10.0-50.0); MEAN CORPUSCULAR HEMOGLOBIN 28.1 pg (28.2-33.3); MEAN CORPUSCULAR HGB CONC 32.8 g/dL (31.7-36.0); MEAN CORPUSCULAR VOLUME 85.4 fL (84.0-98.0); MONOCYTES ABSOLUTE AUTO 0.54 K/uL (0.00-1.00); MONOCYTES PERCENT AUTO 11.2 % (2.0-14.0); NEUTROPHILS ABSOLUTE AUTO 2.75 K/uL (1.40-7.00); NEUTROPHILS PERCENT AUTO 57.2 % (45.0-80.0); PLATELET COUNT,PLT 178 K/uL (150-350); RED BLOOD CELL COUNT 4.81 M/uL (4.33-5.41); RED CELL DISTRIBUTION WIDTH 15.8 % (11.2-14.1); WHITE BLOOD CELL COUNT,WBC 4.8 K/uL (4.0-10.2)
[2024-05-29 10:41] VITALS: BP 121/65; PULSE 68
== END 2024-05-29 10:25 | disposition home or self-care (01) ==
LOC: LL.ED 05:31 → SUPCPDRO 05:31 → LL.ED 10:25
DX: K21.9 Gastro-esophageal reflux disease without esophagitis (principal); K27.9 Peptic ulcer, site unspecified, unspecified as acute or chronic, without hemorrhage or perforation; I48.91 Unspecified atrial fibrillation; Z86.73 Personal history of transient ischemic attack (TIA), and cerebral infarction without residual deficits; I25.10 Atherosclerotic heart disease of native coronary artery without angina pectoris; I11.0 Hypertensive heart disease with heart failure; I50.9 Heart failure, unspecified; J44.9 Chronic obstructive pulmonary disease, unspecified; Z90.49 Acquired absence of other specified parts of digestive tract; Z79.899 Other long term (current) drug therapy; Z88.8 Allergy status to other drugs, medicaments and biological substances
CPT/HCPCS: 36415; 74019; 80053; 83735; 85025; 85610; 99284; A9270-GY